=== PATIENT | female | born 1935 | race Caucasian/White ===

== ENCOUNTER 2020-08-30 14:09 | Inpatient (IN) ==
[2020-08-30 15:01] VITALS: BMI 18.8
[2020-08-30] MEDS ORDERED: NITROSTAT SL PRN (15:34)
[2020-08-30 15:53] LABS: BASOPHILS # (AUTO) 0.1 K/uL (0-0.2); EOSINOPHILS # (AUTO) 0.4 K/ul (0.0-0.7); EOSINOPHILS % (AUTO) 4.4 % (0.0-7.0); HEMATOCRIT 46.5 % (37.0-47.0); HEMOGLOBIN 15.3 g/dl (12.0-16.0); IMMATURE GRANULOCYTE % (AUTO) 0.3 % (0.0-5.0); LYMPHOCYTES # (AUTO) 1.7 K/uL (0.60-3.4); LYMPHOCYTES % (AUTO) 21.9 (10.0-50.0); MEAN CORPUSCULAR HEMOGLOBIN 29.2 pg (27.0-31.0); MEAN CORPUSCULAR HGB CONC 32.9 (31.8-35.4); MEAN CORPUSCULAR VOLUME 88.7 fl (81.0-99.0); MONOCYTES # (AUTO) 0.6 K/uL (0.4-2.0); MONOCYTES % (AUTO) 7.2 (0-10); NEUTROPHILS # (AUTO) 5.2 K/ul (2.0-6.9); NEUTROPHILS % (AUTO) 65.2 % (42.2-75.2); PLATELET COUNT 565 10^3/uL (140-440); RDW COEFFICIENT OF VARIATION 13.7 % (11.6-14.8); RED BLOOD COUNT 5.24 10^6/ul (4.20-5.40); WHITE BLOOD COUNT 7.93 K/ul (4.6-10.2)
[2020-08-30] MEDS: SODIUM CHLORIDE 1,000 ML IV SCH (16:00)
[2020-08-30 16:04] LABS: ALANINE AMINOTRANSFERASE 10.7 U/L (0-35); ALBUMIN 4.75 g/dL (3.5-5.0); ALKALINE PHOSPHATASE 112.9 U/L (53-141); ASPARTATE AMINO TRANSFERASE 27.8 U/L (14-36); BILIRUBIN,TOTAL 0.37 mg/dL (0.2-1.3); BLOOD UREA NITROGEN 21.2 mg/dL (7-17); CALCIUM 10.44 mg/dL (8.4-10.2); CARBON DIOXIDE 30.1 mmol/L (22-30.0); CHLORIDE 100.1 mmol/L (98-107); CREATININE 1.72 mg/dL (0.60-1.30); GLUCOSE 115.7 mg/dL (74-106); POTASSIUM 4.35 mmol/L (3.5-5.1); SODIUM 139.4 mmol/L (134.5-145); TOTAL PROTEIN 8.91 g/dL (6.3-8.2)
--- NOTE | 2020-08-30 17:38 | CT ---
EXAM: CT of the abdomen and pelvis without contrast. HISTORY: Weight loss. PROCEDURE: Contiguous axial CT images of the abdomen and pelvis without contrast with coronal and sa gittal reformats. FINDINGS: The exam is limited without IV contrast. The liver is normal in appearance. There are gal lstones in the gallbladder. The gallbladder is within normal limits in size. The pancreas, spleen a nd adrenal glands are normal in appearance. There is left renal cortical scarring. There is a right renal cyst. There are nonobstructive calcifications in the kidneys. The abdominal aorta is within normal limits in size. There are atherosclerotic calcifications in the major arteries of the abdomen and pelvis. There is a large hiatal hernia. The appendix is normal in appearance. There is divert iculosis of the colon with no evidence of diverticulitis. No free fluid or free air in the abdomen o r pelvis. The bladder is adequately filled and normal in appearance. The uterus is unremarkable. T here are degenerative changes in the spine. Impression: Colonic diverticulosis without diverticulitis. Cholelithiasis as described. Nonobstructive bilateral nephrolithiasis. Left renal cortical scarring. Atherosclerotic vascular disease. Large hiatal hernia.
--- NOTE | 2020-08-30 17:43 | CT ---
EXAM: CT chest without contrast TECHNIQUE: Helical axial CT of the chest was performed without contrast with coronal and sagittal rec onstructions. COMPARISON: CT of the abdomen pelvis from today and CT chest abdomen pelvis from 06/02/2015 HISTORY: Syncope FINDINGS: Lung parenchyma: There is no mass or nodule or large effusion or infiltrate.There is some mild upper lobe bronchiectasis. There is a very large hiatal hernia consistent with an intrathoracic stomach. There is some mild atelectasis surrounding this. Mediastinum: No pathologic hilar or mediastinal adenopathy. There are advanced coronary calcification s. There is no pericardial effusion. There is advanced calcific atherosclerosis of the aorta. There is no aortic aneurysm. Upper Abdomen: Please see today's CT abdomen pelvis report for details. Osseous structures: Nothing acute. Surrounding soft tissues including the thyroid gland are normal. No supraclavicular or axillary rosmery opathy. IMPRESSION: 1. No acute abnormality in the chest. There is no infiltrate or failure or effusion. 2. Intrathoracic stomach. 3. Advanced atherosclerosis.
[2020-08-30] MEDS: COREG PO SCH (17:51)
--- NOTE | 2020-08-30 17:53 | US ---
EXAM: Ultrasound Doppler carotid. HISTORY: Syncope. PROCEDURE: Bilateral carotid ultrasound with color and spectral Doppler. FINDINGS: The bilateral internal carotid arteries are tortuous. There is minimal plaque formation in the right common carotid artery and right carotid bulb. There i s moderate plaque formation in the proximal right internal carotid artery. The peak systolic velocit y in the right internal carotid artery measures 102 cm/sec. The right peak systolic velocity ratio m easures 1.1. There is minimal plaque formation in the distal left common carotid artery and left carotid bulb. Th ere is moderate plaque formation in the proximal left internal carotid artery. The peak systolic michael ocity in the left internal carotid artery measures 129 cm/sec. The left peak systolic velocity ratio measures 1.4. There is antegrade flow in the vertebral arteries. Impression: Moderate stenosis in the bilateral carotid arteries as described, classified as 50-69% b y NASCET criteria. Antegrade flow in the vertebral arteries.
[2020-08-30] MEDS ORDERED: FAMOTIDINE 20 MG PO SCH (21:00)
[2020-08-30] MEDS: LIBRIUM PO SCH (21:08)
[2020-08-30] MEDS: PEPCID PO SCH (21:08)
[2020-08-30 22:08] LABS: BILIRUBIN,URINE Negative (NEGATIVE); CLARITY,URINE Clear (CLEAR); COLOR,URINE Yellow (YELLOW); GLUCOSE, URINE (UA) Negative (NEGATIVE); KETONES,URINE Negative (NEGATIVE); LEUKOCYTE ESTERASE ,URINE Trace (NEGATIVE); NITRITE,URINE Negative (NEGATIVE); PROTEIN,URINE Negative (NEGATIVE); URINE, BLOOD Negative (NEGATIVE); UROBILINOGEN,URINE 0.2 (0.2)
[2020-08-30 22:13] LABS: URINE WBC, MICROSCOPIC 0-2 (0-2)
[2020-08-30 22:14] LABS: BACTERIA,URINE TRACE (NOT PRESENT); SQUAMOUS EPITHELIAL CELL,UR 0-2 (0-5)
[2020-08-31] MEDS: SODIUM CHLORIDE 1,000 ML IV SCH ×2 (04:53→18:13)
[2020-08-31 05:45] LABS: BASOPHILS # (AUTO) 0.1 K/uL (0-0.2); BASOPHILS % (AUTO) 0.8 % (0.0-3.0); EOSINOPHILS # (AUTO) 0.3 K/ul (0.0-0.7); EOSINOPHILS % (AUTO) 4.3 % (0.0-7.0); HEMATOCRIT 41.9 % (37.0-47.0); HEMOGLOBIN 13.8 g/dl (12.0-16.0); IMMATURE GRANULOCYTE % (AUTO) 0.3 % (0.0-5.0); LYMPHOCYTES # (AUTO) 2.2 K/uL (0.60-3.4); LYMPHOCYTES % (AUTO) 30.1 (10.0-50.0); MEAN CORPUSCULAR HGB CONC 32.9 (31.8-35.4); MONOCYTES # (AUTO) 0.6 K/uL (0.4-2.0); MONOCYTES % (AUTO) 8.7 (0-10); NEUTROPHILS # (AUTO) 4.1 K/ul (2.0-6.9); NEUTROPHILS % (AUTO) 55.8 % (42.2-75.2); PLATELET COUNT 502 10^3/uL (140-440); RDW COEFFICIENT OF VARIATION 13.6 % (11.6-14.8); RED BLOOD COUNT 4.76 10^6/ul (4.20-5.40); WHITE BLOOD COUNT 7.37 K/ul (4.6-10.2)
[2020-08-31 05:56] LABS: ALANINE AMINOTRANSFERASE 8.7 U/L (0-35); ALBUMIN 3.82 g/dL (3.5-5.0); ALKALINE PHOSPHATASE 82.3 U/L (53-141); BILIRUBIN,TOTAL 0.5 mg/dL (0.2-1.3); BLOOD UREA NITROGEN 19.4 mg/dL (7-17); CALCIUM 9.43 mg/dL (8.4-10.2); CARBON DIOXIDE 28.5 mmol/L (22-30.0); CHLORIDE 104.3 mmol/L (98-107); CREATININE 1.55 mg/dL (0.60-1.30); GLUCOSE 97.2 mg/dL (74-106); POTASSIUM 3.72 mmol/L (3.5-5.1); SODIUM 139.4 mmol/L (134.5-145); TOTAL PROTEIN 7.03 g/dL (6.3-8.2)
[2020-08-31] MEDS ORDERED: PROTONIX PO SCH (06:30)
[2020-08-31] MEDS ORDERED: NITROSTAT SL PRN (07:45)
[2020-08-31] MEDS ORDERED: ATROPINE SULFATE PFS IVP PRN (07:45)
[2020-08-31] MEDS ORDERED: TYLENOL PO PRN (07:45)
[2020-08-31] MEDS ORDERED: VISTARIL INJ IM PRN (07:45)
[2020-08-31] MEDS ORDERED: LIBRIUM PO SCH (09:00)
[2020-08-31] MEDS ORDERED: NORVASC PO SCH (09:00)
[2020-08-31] MEDS: LIBRIUM PO SCH ×2 (09:24→21:48)
[2020-08-31] MEDS: NORVASC PO SCH ×2 (09:25→21:48)
[2020-08-31] MEDS: ASPIRIN EC PO SCH (09:26)
[2020-08-31] MEDS: COREG PO SCH ×2 (09:26→16:20)
[2020-08-31] MEDS: ROCEPHIN 1 GM/50 ML D5W 1 GM/50 ML BAG IV SCH (10:41)
--- NOTE | 2020-08-31 11:23 | PCM.PROG ---
Attending Provider: ATTENDING PROVIDER: Dr. FABIO OSUNA DATE OF SERVICE: 08/31/20 SUBJECTIVE: This 84 year old /WHITE F was hospitalized 08/30/20 with weight loss and generalized weakness and syncope. Telemetry didn't show any marked arrhythmia. CT of the abdomen and chest showed large hiatal hernia with diverticulosis, cholelithiasis and intrathoracic stomach. Kidney function has improved with IV fluids. REVIEW OF SYSTEMS: CONSTITUTIONAL: No night sweats. No fatigue, malaise, lethargy. No fever or chills. HEENT: Eyes: No visual changes. No eye pain. No eye discharge. ENT: No runny nose. No epistaxis. No sinus pain. No odynophagia. No congestion. RESPIRATORY: No cough, no congestion. No hemoptysis. No shortness of breath. CARDIOVASCULAR: No angina symptoms. No CHF symptoms. No atypical chest pain for CAD. No palpitations. No orthopnea.. GASTROINTESTINAL: No abdominal pain. No nausea or vomiting. No diarrhea or constipation. No hematemesis. No hematochezia. GENITOURINARY: No urgency. No frequency. No dysuria. No hematuria. No obstructive symptoms. No discharge. No pain. No significant abnormal bleeding. MUSCULOSKELETAL: No musculoskeletal pain; no joint swelling. NEUROLOGICAL: Awake, alert, oriented to time, place and person. No headache. No neck pain. No syncope. No seizures. No dizziness. PSYCHIATRIC: Not anxious. No depression. No suicidal thoughts. No homicidal thoughts. SKIN: No rash. No lesions. No wounds. ENDOCRINE: No unexplained weight loss. No weight gain. HEMATOLOGIC/LYMPHATIC: No anemia. No purpura. No petechiae. No prolonged or excessive bleeding. No palpable lymph nodes. PHYSICAL EXAMINATION: GENERAL: The patient is awake, alert and oriented, lying in bed in no distress. VITAL SIGNS: Temperature 96.7 F, Pulse 79, Respiratory Rate 18, BP 138/58, Pulse Ox 95% HEENT: Head normocephalic, atraumatic. Eyes: Extraocular muscles are intact. Pupils are equal, round and reactive to light and accommodation. Ears: No lesions. Nose appeared normal. Throat: No exudate or erythema. NECK: Supple. No JVD, no carotid bruit. No lymphadenopathy or thyromegaly. LUNGS: Clear to auscultation. Percussion note normal. Chest symmetrical. HEART: S1, S2, no S3. No murmurs. No cyanosis or clubbing. No ascites. Pulses: Dorsalis pedis and posterior tibial pulses +1 to +2 both sides. ABDOMEN: Soft. Non-tender. Bowel sounds active. No CVA tenderness. No mass felt. EXTREMITIES: No edema. Full range of motion of all extremities, equal. NEUROLOGIC: No focal deficit. Cranial nerves II through XII are grossly intact. No headache, no double vision or headache. SKIN: Warm and dry. Intact. Turgor-normal. LYMPHATIC: No palpable lymph nodes/no lymphedema. MUSCULOSKELETAL: Normal joints with no swelling. Muscle tone is normal. LAB REVIEW: 08/31/20 05:38 08/31/20 05:38 08/31/20 05:38: WBC 7.37, RBC 4.76, Hgb 13.8, Hct 41.9, MCV 88.0, MCH 29.0, MCHC 32.9, RDW Coeff of Sera 13.6, Plt Count 502 H, Immature Gran % (Auto) 0.3, Neut % (Auto) 55.8, Lymph % (Auto) 30.1, Heard % (Auto) 8.7, Eos % (Auto) 4.3, Baso % (Auto) 0.8, Neut # (Auto) 4.1, Lymph # (Auto) 2.2, Heard # (Auto) 0.6, Eos # (Auto) 0.3, Baso # (Auto) 0.1, Immature Gran # (Auto) 0.0 08/31/20 05:38: Sodium 139.4, Potassium 3.72, Chloride 104.3, Carbon Dioxide 28.5, Anion Gap 10.32, BUN 19.4 H, Creatinine 1.55 H, Estimated GFR (MDRD) 32.00, BUN/Creatinine Ratio 12.51, Glucose 97.2, Calcium 9.43, Total Bilirubin 0 .50, AST 28.0, ALT 8.7, Alkaline Phosphatase 82.3 D, Total Protein 7.03, A lbumin 3.82, Globulin 3.21, Albumin/Globulin Ratio 1.19 08/30/20 21:50: Urine Color Yellow, Urine Clarity Clear, Urine pH 6.0, Ur Specific [place] 1.020, Urine Protein Negative, Urine Glucose (UA) Negative, Urine Ketones Negative, Urine Blood Negative, Urine Nitrite Negative, Urine Bilirubin Negative, Urine Urobilinogen 0.2, Ur Leukocyte Esterase Trace H, Urine Microscopic WBC 0-2, Ur Squamous Epith Cells 0-2, Urine Bacteria Trace 08/30/20 15:45: Sodium 139.4, Potassium 4.35, Chloride 100.1, Carbon Dioxide 30.1 H, Anion Gap 13.55, BUN 21.2 H, Creatinine 1.72 H, Estimated GFR (MDRD) 28.00, BUN/Creatinine Ratio 12.32, Glucose 115.7 H, Calcium 10.44 H, Total Bilirubin 0.37, AST 27.8, ALT 10.7, Alkaline Phosphatase 112.9, Total Protein 8.91 H, Albumin 4.75, Globulin 4.16, Albumin/Globulin Ratio 1.14 08/30/20 15:45: WBC 7.93, RBC 5.24, Hgb 15.3, Hct 46.5, MCV 88.7, MCH 29.2, MCHC 32.9, RDW Coeff of Sera 13.7, Plt Count 565 H, Immature Gran % (Auto) 0.3, Neut % (Auto) 65.2, Lymph % (Auto) 21.9, Heard % (Auto) 7.2, Eos % (Auto) 4.4, Baso % (Auto) 1.0, Neut # (Auto) 5.2, Lymph # (Auto) 1.7, Heard # (Auto) 0.6, Eos # (A uto) 0.4, Baso # (Auto) 0.1, Immature Gran # (Auto) 0.0 ASSESSMENT: Please see below. 1. Weight loss likely combination of huge hiatal hernia and Cholelithiasis and aging process with mild depression. PLAN: 1. Systolic blood pressure elevated, Amlodipine 5mg BID 2. Increase Pantoprazole BID 3. Continue Famotidine 4. The patient is not a surgical candidate for any of her problems. Diet discussed with the patient. Plan and coordination of the patient's care discussed in the presence of Kids Club Attendant and nurse. CONDITION: STABLE SCRIBED BY: GENESIS SCOTT, Manager Resource scribed while in presence of service performed by Dr. FABIO OSUNA on 08/31/20 ([id number])
--- NOTE | 2020-08-31 13:16 | RS.PTINEVL ---
Subjective - Patient information Date of Evaluation: 08/31/20 Date of Arrival on Unit: 08/30/20 Admitted From:: Home Diagnosis: weight loss, weakness, falls, syncopal episode. Usual Living Arrangement: Alone Living Arrangement Comments: has homemaker that helps a few times a week, grandson helps with things as needed. (grandson scheduled to go to [place] for [employer] school for 6months) Home Environment: Mobile Home, Stairs (few), Rail Medical History: Hypertension, Diabetes Medical History Comments:: CKD, GERD, GI bleed, large hiatal hernia, Medications: see chart Subjective Information/ Patient Comments:: pt states that she is hoping to go home tomorrow. She states that she has lifeline at home, homemaker that comes a few times a week. - Level of function Prior to this admission, the patient could do the following:: Independent ADL's, Independent Ambulation Abilities prior to this admission: pt states she would wait to take a shower when someone was there, she didn't take one when she was alone because she was afraid of falling. Current Level of Function: Partially Dependent Current Equipment Used at Home: single point cane Interventions - Objective Patient Orientation: Person, Place, Time, Situation Current Interventions: IV's, Telemetry Range of Motion - ROM Right Upper Extremity AROM: WFL's Left Upper Extremity AROM: WFL's Right Lower Extremity AROM: WFL's Left Lower Extremity AROM: WFL's Muscle Strength - Muscle Strength Right Upper Extremity Strength: Mild Weakness (shld flex 4-/5, elbow flex/ext 4/5) Left Upper Extremity Strength: Mild Weakness (shld flex 4-/5, elbow flex/ext 4/5) Right Lower Extremity Strength: Mild Weakness (hip flex 4-/5, knee flex/ext 4/5, ankle DF/PF 4/5) Left Lower Extremity Strength: Mild Weakness (hip flex 4-/5, knee flex/ext 4/5, ankle DF/PF 4/5) Sensation - Sensation Right Upper Extremity Sensation: Intact/Normal Left Upper Extremity Sensation: Intact/Normal Right Lower Extremity Sensation: Intact/Normal Left Lower Extremity Sensation: Intact/Normal Palpation Palpation Findings: None/Normal Balance - Sitting Balance and Reactions Static Sitting Balance: Good Dynamic Sitting Balance: Fair - Standing Balance and Reactions Static Standing Balance: Fair Dynamic Standing Balance: Poor Standing Equilibrium Reactions: Delayed Left, Delayed Right Standing Protective Reactions: Delayed Left, Delayed Right Functional Mobility - Bed Mobility Rolling R/L: Independent Scooting: Independent Sit to Supine: Supervision - Transfers Sit to Stand: Supervision Stand to Sit: Supervision - Safety Awareness Safety Awareness: Fair KARLA INDEX SCORE: n/a Ambulation - Ambulation Assistive Device Used: Gait belt Orthotic/Prosthetic Device: No Distance: 140ft x2 Assistance needed with Ambulation: CGA Gait Deviations: Forward posture, Short stride, Deviates from path Factors Affecting Ambulation: Decreased Balance, Weakness, Decreased Safety Treatment time - Time with patient Length of Evaluation: 21 Total treatment time: 32 Patient Education - Education Patient Education: Home Exercise Program, Education of Plan of Care Teaching Recipient: Patient Teaching Methods: Discussion, Demonstration Comments: discussion regarding DC planning and recommend home health PT. Drea states he is going to talk with Dr. Kaur today for dc planning. Assessment - Assessment Problem List:: Decreased level of function, Requires training/education, Decreased safety/Risk of falls, Weakness Rehab Potential: Good Further Therapy Indicated?: Yes Candidate for Swing Bed for Therapy Services?: Feel pt would not be a candidate for swing bed due to high functional level. Evaluation Complexity: HISTORY: Medium, EXAM OF BODY SYSTEMS: Medium, CLINICAL PRESENTATION: Medium, CLINICAL DECISION MAKING: Medium Patient's Goal(s): Get stronger, go home Short Term Goals GOAL #1: pt transfer sup to/from sit independently Goal to be met by: 09/02/20 GOAL #2: Sit to/from stand SBA Goal to be met by: 09/02/20 GOAL #3: pt amb 200ft with/without AAD CGA to SBA with no LOB Goal to be met by: 09/02/20 GOAL #4: Improve BLE strength 4/5 Goal to be met by: 09/02/20 Saddle Stitching Machine Operator Goals GOAL #1: pt amb functional household distances independently Goal to be met by: 09/04/20 GOAL #2: Ascend/descend 3 steps with HR SBA Goal to be met by: 09/04/20 GOAL #3: Sit to/from stand independently Goal to be met by: 09/04/20 Plan Plan of Care: Therapeutic EX, Therapeutic Activity Other:: gait training Frequency of Treatment: 1-2 X day, as tolerated Duration of Treatment: 4 days Anticipated Discharge Destination: Home Treatment Diagnosis (ICD 10 Codes): impaired balance R 26.81. gait difficulty R 26.2. weakness M62.81 Has the Physician been added for Co-signature?: Yes
[2020-08-31] MEDS: PROTONIX PO SCH (16:20)
[2020-08-31] MEDS: PEPCID PO SCH (21:48)
[2020-09-01 05:18] LABS: BASOPHILS # (AUTO) 0.1 K/uL (0-0.2); BASOPHILS % (AUTO) 0.8 % (0.0-3.0); EOSINOPHILS # (AUTO) 0.3 K/ul (0.0-0.7); HEMATOCRIT 38.2 % (37.0-47.0); HEMOGLOBIN 12.7 g/dl (12.0-16.0); IMMATURE GRANULOCYTE % (AUTO) 0.2 % (0.0-5.0); LYMPHOCYTES # (AUTO) 2.1 K/uL (0.60-3.4); MEAN CORPUSCULAR HEMOGLOBIN 29.3 pg (27.0-31.0); MEAN CORPUSCULAR HGB CONC 33.2 (31.8-35.4); MONOCYTES # (AUTO) 0.8 K/uL (0.4-2.0); MONOCYTES % (AUTO) 9.7 (0-10); NEUTROPHILS # (AUTO) 5.1 K/ul (2.0-6.9); NEUTROPHILS % (AUTO) 60.3 % (42.2-75.2); PLATELET COUNT 464 10^3/uL (140-440); RDW COEFFICIENT OF VARIATION 13.8 % (11.6-14.8); RED BLOOD COUNT 4.34 10^6/ul (4.20-5.40); WHITE BLOOD COUNT 8.52 K/ul (4.6-10.2)
[2020-09-01 05:32] LABS: ALANINE AMINOTRANSFERASE 7.5 U/L (0-35); ALBUMIN 3.33 g/dL (3.5-5.0); ALKALINE PHOSPHATASE 72.2 U/L (53-141); ASPARTATE AMINO TRANSFERASE 17.8 U/L (14-36); BILIRUBIN,TOTAL 0.4 mg/dL (0.2-1.3); BLOOD UREA NITROGEN 17.8 mg/dL (7-17); CALCIUM 8.79 mg/dL (8.4-10.2); CARBON DIOXIDE 25.5 mmol/L (22-30.0); CHLORIDE 106.9 mmol/L (98-107); CREATININE 1.33 mg/dL (0.60-1.30); GLUCOSE 97.9 mg/dL (74-106); POTASSIUM 3.53 mmol/L (3.5-5.1); TOTAL PROTEIN 6.35 g/dL (6.3-8.2)
[2020-09-01 05:57] VITALS: BP 130/79; TEMP 97.7
[2020-09-01] MEDS: PROTONIX PO SCH (06:07)
[2020-09-01] MEDS: COREG PO SCH (08:27)
[2020-09-01] MEDS: NORVASC PO SCH (08:27)
[2020-09-01] MEDS: LIBRIUM PO SCH (08:28)
[2020-09-01] MEDS: ASPIRIN EC PO SCH (08:28)
[2020-09-01] MEDS: ROCEPHIN 1 GM/50 ML D5W 1 GM/50 ML BAG IV SCH (08:28)
[2020-09-01] MEDS: SODIUM CHLORIDE 1,000 ML IV SCH (08:29)
--- NOTE | 2020-09-03 10:16 | HP ---
DATE OF SERVICE: 08/30/2020 REASON FOR HOSPITALIZATION/HISTORY OF PRESENT ILLNESS: 84 year old female hospitalized with still not much appetite. Diarrhea off and one and coughing till vomited and then passed out. Still lost weight. 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 REVIEW OF SYSTEMS: CONSTITUTIONAL: No fever, Fatigue. HEENT: No sinus drainage, no sore throat. RESPIRATORY: Cough, no congestion. CARDIOVASCULAR: No atypical chest pain for coronary artery disease. No angina, CHF symptoms, palpitations or shortness of breath. GASTROINTESTINAL: No melena. Abdominal pain. GERD symptoms. Diarrhea. GENITOURINARY: No hematuria, no prostatism, no polyuria. PUGGER HELPER: No blackout, no dizziness, no headache, no double vision. MUSCULOSKELETAL: No osteoarthritis pain, no joint swelling. ENDOCRINE: Weight loss, lost 10 pounds in past few months, no weight gain. SKIN: Not dry, no rash. PSYCHIATRIC: Not anxious, no depression, no suicidal thoughts, no homicidal thoughts. SOCIAL HISTORY: Marital Status: . Alcohol Usage: No. Tobacco Usage: No. FAMILY HISTORY: Father -CAD Mother -Dementia and stomach cancer Brother 2; one cancer and other alive healthy Sister 4 sisters 3 have cancer and one cancer MEDICATIONS: Amlodipine 5mg daily Coreg 25mg BID Chlordiazepoxide 10mg BID Fish oil BID Iron 325mg PRN Nitroglycerin 0.4mg Sublingual Remeron 7.5mg HS Tramadol 5mg BID PRN Protonix 40mg Pepcid 20mg ALLERGIES: Advil Remeron PHYSICAL EXAMINATION: V/S: Pulse 68, blood pressure 122/80, temperature 97.7, oxygen saturation 97%, BMI 18, height 5'0 and weight 95.0. GENERAL APPEARANCE: Oriented times three. HEENT: Pale.Dry mucous membrane. NECK: No JVP, no bruits. RESPIRATORY: Decreased breath sounds. CARDIOVASCULAR: S1, S2, no S3, no murmur. No cyanosis, clubbing. No ascites. GI/ABDOMEN: No tenderness. Bowel sounds are active. EXTREMITIES: edema, pulses +1, equal. PUGGER HELPER: Deep tendon reflexes, sensory, motor and gait all normal. RECTAL: Patient refused/PELVIC: Patient refused. ASSESSMENT: 1. Weight loss 2. Generalized weakness 3. Syncopal episode 4. GERD 5. History of hiatal hernia 6. History of GI bleed 7. Weight loss 8. Generalized osteoarthritis 9. Diabetes Mellitus type 2 10.Hypertension 11.Chronic kidney disease stage 3-4, ejection fraction 45% 12.MVP 13. History of falls. PLAN: 1. Admit 2. Routine telemetry orders, No cardiac ezymes 3. CBC and CMP now and daily 4. Fall precautions 5. CT of chest/abdomen and pelvis with and without 6. Continue home medications 7. Normal saline at 75cc an hour IV 8. U/A 9. Skip chest x-ray 10.Bilateral Carotid scan 11.Weight daily 12.Regular diet TIME SPENT: More than 70 minutes. MTDD
--- NOTE | 2020-09-03 10:53 | PN ---
08/30/2020: Level 5 08/31/2020: Intermediate 09/01/2020: D as in discharge MTDD
--- NOTE | 2020-09-03 10:53 | DS ---
DATE OF SERVICE: 09/01/2020 FINAL DIAGNOSIS: 1. Weight loss likely combination of aging process, living by herself along with huge hiatal hernia and cholelithiasis , 10 pounds in few months. 2. Syncope likely from weight loss and hypotension 3. Hypotension 4. Large hiatal hernia with stomach in the thoracic area 5. Cholelithiasis 6. Anxiety disorder 7. Reflux disease 8. History of bleed likely from hiatal hernia 9. Diabetes mellitus type 2 borderline. DISCHARGE INSTRUCTIONS: Discharge home. The patient is strongly advised to take 5-6 more small meals and eat three hours prior to going to bed. The patient declined any further evaluation for any of her problems like cholelithiasis or large hiatal hernia. In fact she is not a surgical candidate for large hiatal hernia. She has cholelithiasis. It is not to the point may need immediate surgical referral. Instruction to come back in 5-7 days. MEDICATIONS AT DISCHARGE: Continue Chlordiazepoxide Librium 10mg BID Amlodipine 5mg daily Carvedilol 25mg BID Famotidine 20mg PO at HS Pantoprazole 40mg QAM DIET INSTRUCTIONS: Should be small frequent meals. ACTIVITY: Gradually resume activity as tolerated SMOKING: N/A HOSPITAL COURSE: 84 year old white female hospitalized because of weight loss and generalized weakness with near syncopal type of sort. She has lost weight. Also her appetite has been poor. She lives by herself with grandson who cooks. His does his best to take care of them and he is going to leaving within a couple of days. Declined any group home type of placement. She says that she has been able to carry out all activity of daily living. The patient is strongly advised to eat regular meals, 5 small meals. Diet and not to eat three hours before going to bed. The patient is whole stomach herniated in the thoracic cavity. She has been on Protonix and Famotidine. She needs to continue both of them. She hasn't been taking them on regular basis. Cholelithiasis could also be partly responsible for the weight loss with lack of appetite and bloating. She declined any surgical referral. She is not a good candidate. Echocardiogram showed normal LV contractility and mitral valve prolapse, mild pericardial effusion. Cardiovascular status is stable. She declined to considering any group home type of placement. During the stay telemetry did not reveal any significant arrhythmias. The patient is going to need Home Health for PT/OT due to falls. The patient is agreeable. TIME SPENT: More than 60 minutes. DAMIAND
--- NOTE | 2020-09-03 23:01 | ECHO2D ---
Date of Exam: 09/01/2020 Ordering Physician: DR. OSUNA Room #: 111 Reason for Echo: CORONARY ARTERY DISEASE, SHORTNESS OF BREATH, WEAKNESS, SYNCOPE M-Mode Normal Adult Results LV Dimensions Normal Adult Results AoV Opening excursions >1.6 >1.6 LVEDD-base- 3.5-5.8 5.2 Ao root dimensions 2.0-3.7 3.2 LVESD-base- 3.1-4.6 L. Atrium dimensions 1.9-3.8 4.0 Post. Wall thickness 0.8-1.1 0.9 IV septum (thickness) 0.7-1.2 1.1 Post. Wall excursion 0.72-1.3 NORMAL Septal motion NORMAL Systolic motion R. Ventricular cavity 1.5-2.0 NORMAL LVEF 60% 62% Paradoxical septal wall motion NORMAL 2-D : MITRAL VALVE PROLAPSE NOTED. LEFT PARASTERNAL LONG AXIS AND APICAL FOUR CHAMBER VIEW, NORMAL LEFT VENTRICLE SIZE AND CONTRACTILITY, MODERATE TO MILD PERICARDIAL EFFUSION, NO THROMBUS COLOR FLOW: MILD MITRAL REGURGITATION M-MODE: MV: MITRAL VALVE PROLAPSE LATE SYSTOLIC AV: NORMAL TV: NORMAL PV: NORMAL CHAMBER SIZE: BORDERLINE LEFT ATRIAL CAVITY ENLARGEMENT WALL MOTION: NORMAL PERICARDIUM: NORMAL INTERPRETATION: 1. 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 NORMAL LEFT VENTRICLE SIZE AND CONTRACTILITY 4. [] MTDD
--- NOTE | 2020-09-04 14:31 | PN ---
DATE OF SERVICE: 08/30/20 SUBJECTIVE: The patient was seen and examined today before her hospitalization. The patient will be hospitalized with further workup to be done as ordered. Her grandson was present. The patient's overall condition was stable. TIME SPENT: More than 30 minutes. Plan and coordination of the patient's care discussed in the presence of nurse. KIKO
== END 2020-09-01 13:17 | disposition home or self-care (01) | DRG 641 ==
LOC: MEDSURG A 14:09
PROVIDERS: ADMIT Internal Medicine; ATTEND Internal Medicine

== ENCOUNTER 2021-10-21 05:23 | Inpatient (IN) ==
--- NOTE | 2021-10-21 05:32 | ED.PDOC ---
General <MANUEL SAMS MD - Last Filed: 10/22/21 19:27> ED Provider: Dr. MANUEL SAMS Chief Complaint: Shortness of Air Stated Complaint: patient is an 86 year old female who has had her COVID vaccine including booster with cough and shortness of breath that started yesterday but did see Dr Kaur and received Z pack twice. Cough is productive. Time Seen by Provider: 10/21/21 05:28 Mode of Arrival: Ambulance Information Source: Patient and EMT Primary Care Provider: FABIO KAUR Nursing and Triage Documentation Reviewed and Agree: No Does patient meet sepsis criteria?: No If yes, has appropriate treatment been initiated?: No System Inflammatory Response Syndrome: Pulse >90 BPM Sepsis Protocol: For patient's 13 years and over: Temp is 96.8 and below OR 101 and greater Pulse >90 BPM Resp >20/minute Acutely Altered Mental Status Are patient's symptoms suggestive of a new infection, such as: -Pneumonia -Skin, Soft Tissue -Endocarditis -UTI -Bone, Joint Infection -Implantable Device -Acute Abdominal Infection -Wound Infection -Meningitis -Blood Stream Catheter Infection -Unknown Respiratory Complaint Exam <MANUEL SAMS MD - Last Filed: 10/22/21 19:27> Shortness of Air Complaint/Exam Onset/Duration: 2 days Symptoms Are: Still present Timing: Constant Initial Severity: Moderate Current Severity: Severe Character: Reports Dyspnea at rest Associated Signs and Symptoms: Reports Cough and Wheezing; Denies Chest pain Home Oxygen Use: No Recent Stress Test: No Recent Echo/LV Function: No Respiratory Distress: Moderate Stridor Present: No Tracheal Deviation: No Subcutaneous Emphysema: No Accessory Muscle Use: No Retractions: Diaphragmatic Diminished Breath Sounds: No Prolonged Expiratory Phase: No Unable to Speak Full Sentences: No Fatigue: No Leg Swelling: No Irma's Sign Present: No Grunting Respirations: No Kussmaul Respirations: No Differential Diagnoses: CHF, Pneumonia, SARS, Bronchitis and URI Quality Indicators for AMI: EKG in 10min. Quality Indicator For Non-Traumatic Chest Pain/Syncope: EKG Performed Quality Indicators For Pneumonia/CAP: Blood Cultures-SCU admit, Empiric Antibiotic Rx and Vital signs Review of Systems <MANUEL SAMS MD - Last Filed: 10/22/21 19:27> Review Of Systems Constitutional: Reports No symptoms Respiratory: Reports Cough and Short of air Neurological: Reports Anxiety All Other Systems: Reviewed and Negative PFSH <MANUEL SAMS MD - Last Filed: 10/22/21 19:27> Medical History (Updated 10/22/21 @ 08:39 by GENESIS SCOTT) GERD (gastroesophageal reflux disease) Hernia Hypertension Syncope Weakness Weight loss Social History Smoking and tobacco status: Former smoker Female Reproductive History Menstrual Hx Hysterectomy: No Hx Tubal Ligation: No Physical Exam <MANUEL SAMS MD - Last Filed: 10/22/21 19:27> Physical Exam Appearance: Reports Ill-appearing and Thin Ill-appearing: Mild Pain Distress: None Eyes: Reports HERNÁN and EOMI ENT: Reports Ears normal and Nose normal Neck: Not Examined Respiratory: Reports Crackles (moslty on the bases ) Cardiovascular: Reports Tachycardia (irregular ) GI/: Reports Not Examined Musculoskeletal: Reports Normal strength, ROM intact and No edema Skin: Reports Warm and Dry Neurological: Reports Motor intact, Alert and Oriented Psychiatric: Reports Anxious Interpretation <MANUEL SAMS MD - Last Filed: 10/22/21 19:27> Radiology Interpretation Radiology Interpretation By: Radiologist Radiology Results: Positive Exam Interpreted: Portable CXR (pulmonary Edema, Correlate for Pneumonia ) EKG Interpretation Time of EKG #1: 05:47 Rate: Tachy Rhythm: Other (Atrial Fibrillation) Ectopy: None [place]: NL Interpretation: Atril Fibrillation with RVR <TRICIA MOCTEZUMA MD - Last Filed: 10/21/21 10:46> Radiology Interpretation Xray Comments: chf and pneumonia. <TRICIA MOCTEZUMA MD - Last Filed: 10/21/21 10:46> Re-Evaluation Time of Re-Evaluation: 07:35 Status: Improved Vital Signs Stable: No Pain Level: 0 Appearance: Other (mildly diaphoretic, was working to breathe.) Lungs: Other (mild wheezes, rhonchi and posterior crackles.) Skin: Warm and Dry Neuro: Alert and Oriented X3 CV: Other (tachycardia.) Physician Notification <MANUEL SAMS MD - Last Filed: 10/22/21 19:27> Case Discussed Endorsed To/Discussed With: Dr Moctezuma Time of Discussion: 07:20 (Bed side hand over given ) Critical Care Note <MANULE SAMS MD - Last Filed: 10/22/21 19:27> Critical Care Note Total Critical Care Time (mins): 30 <TRICIA MOCTEZUMA MD - Last Filed: 10/21/21 10:46> Critical Care Note Total Critical Care Time (mins): 45 Course <MANUEL SAMS MD - Last Filed: 10/22/21 19:27> Course Hematology/Chemistry: 10/22/21 11:34 10/22/21 11:34 Orders, Labs, Meds: Lab Review 10/21/21 10/21/21 10/21/21 05:40 05:45 05:45 WBC 21.86 H RBC 5.66 H Hgb 15.2 Hct 48.6 H MCV 85.9 MCH 26.9 L MCHC 31.3 L RDW Coeff of Sera 14.9 H Plt Count 425 Immature Gran % (Auto) 1.2 Neut % (Auto) 84.2 H Lymph % (Auto) 7.7 L Merrick % (Auto) 5.6 Eos % (Auto) 1.0 Baso % (Auto) 0.3 Neut # (Auto) 18.4 H Lymph # (Auto) 1.7 Merrick # (Auto) 1.2 Eos # (Auto) 0.2 Baso # (Auto) 0.1 Immature Gran # (Auto) 0.3 Puncture Site Lb Base Excess 4.7 H O2 Saturation 87.7 L ABG pH 7.42 ABG pCO2 45.0 ABG pO2 53.0 L* ABG HCO3 29.2 H ABG Total CO2 30.6 H Jose Test + Hemoglobin 1.3 Oxyhemoglobin 89.4 L Carboxyhemoglobin 1.9 H Total Hemoglobin 14.3 FiO2 % 21.0 Sodium 138.2 Potassium 4.26 Chloride 101.5 Carbon Dioxide 29.8 Anion Gap 11.16 BUN 22.5 H Creatinine 1.37 H Estimated GFR (MDRD) 36.00 BUN/Creatinine Ratio 16.42 Glucose 189.6 H Lactic Acid Calcium 9.93 Total Bilirubin 0.54 AST 19.4 ALT 11.8 Alkaline Phosphatase 151.9 H Total Creatine Kinase 28.6 L Troponin I < 0.012 NT-Pro-B Natriuret Pep Total Protein 8.01 Albumin 4.33 Globulin 3.68 Albumin/Globulin Ratio 1.17 Procalcitonin Influ A Molecular Assay Influ B Molecular Assay SARS CoV-2 RNA Rapid ANTONIO SARS-CoV-2 Ag (Rapid) 10/21/21 10/21/21 10/21/21 05:45 05:45 05:45 WBC RBC Hgb Hct MCV MCH MCHC RDW Coeff of Sera Plt Count Immature Gran % (Auto) Neut % (Auto) Lymph % (Auto) Merrick % (Auto) Eos % (Auto) Baso % (Auto) Neut # (Auto) Lymph # (Auto) Merrick # (Auto) Eos # (Auto) Baso # (Auto) Immature Gran # (Auto) Puncture Site Base Excess O2 Saturation ABG pH ABG pCO2 ABG pO2 ABG HCO3 ABG Total CO2 Jose Test Hemoglobin Oxyhemoglobin Carboxyhemoglobin Total Hemoglobin FiO2 % Sodium Potassium Chloride Carbon Dioxide Anion Gap BUN Creatinine Estimated GFR (MDRD) BUN/Creatinine Ratio Glucose Lactic Acid 0.94 Calcium Total Bilirubin AST ALT Alkaline Phosphatase Total Creatine Kinase Troponin I NT-Pro-B Natriuret Pep 6290.000 H Total Protein Albumin Globulin Albumin/Globulin Ratio Procalcitonin < 0.05 Influ A Molecular Assay Influ B Molecular Assay SARS CoV-2 RNA Rapid ANTONIO SARS-CoV-2 Ag (Rapid) 10/21/21 10/21/21 10/21/21 06:00 06:30 07:34 WBC RBC Hgb Hct MCV MCH MCHC RDW Coeff of Sera Plt Count Immature Gran % (Auto) Neut % (Auto) Lymph % (Auto) Merrick % (Auto) Eos % (Auto) Baso % (Auto) Neut # (Auto) Lymph # (Auto) Merrick # (Auto) Eos # (Auto) Baso # (Auto) Immature Gran # (Auto) Puncture Site Base Excess O2 Saturation ABG pH ABG pCO2 ABG pO2 ABG HCO3 ABG Total CO2 Jose Test Hemoglobin Oxyhemoglobin Carboxyhemoglobin Total Hemoglobin FiO2 % Sodium Potassium Chloride Carbon Dioxide Anion Gap BUN Creatinine Estimated GFR (MDRD) BUN/Creatinine Ratio Glucose Lactic Acid Calcium Total Bilirubin AST ALT Alkaline Phosphatase Total Creatine Kinase Troponin I NT-Pro-B Natriuret Pep Total Protein Albumin Globulin Albumin/Globulin Ratio Procalcitonin Influ A Molecular Assay Negative by naat Influ B Molecular Assay Negative by naat SARS CoV-2 RNA Rapid ANTONIO Negative SARS-CoV-2 Ag (Rapid) Negative Orders Category Date Time Status ABG DRAW REQUEST Stat CARDIO 10/21/21 05:29 Completed EKG-(ED ONLY) Stat CARDIO 10/21/21 05:28 Completed METERED DOSE INHALATION Routine CARDIO 10/21/21 05:37 Completed METERED DOSE INHALATION Routine CARDIO 10/21/21 08:24 Completed ABG COOX Stat LAB 10/21/21 05:40 Completed BLOOD CULTURE (ED ONLY) Stat LAB 10/21/21 05:45 Results CBC W/ AUTO DIFF Stat LAB 10/21/21 05:45 Completed COMPREHENSIVE METABOLIC PANEL Stat LAB 10/21/21 05:45 Completed COVID-19 ANTIGEN TEST Stat LAB 10/21/21 06:00 Completed CREATINE KINASE Stat LAB 10/21/21 05:45 Completed LACTIC ACID Stat LAB 10/21/21 05:45 Completed MOLECULAR FLU A & B [FLU A/B MOLECULAR] Stat LAB 10/21/21 06:30 Completed PRO-BNP [NT-PROBNP] Stat LAB 10/21/21 05:45 Completed PROCALCITONIN Stat LAB 10/21/21 05:45 Completed TROPONIN I Stat LAB 10/21/21 05:45 Completed Albuterol Inhaler(with Spacer) [Ventolin Hfa (Per Puff- MEDS 10/21/21 08:23 Discontinued with Spacer)] 4 puff IH ONCE ONE Albuterol Inhaler(with Spacer) [Ventolin Hfa (Per Puff- MEDS 10/21/21 05:37 Discontinued with Spacer)] 4 puff IH ONCE STA Ceftriaxone/D5w 1 gm Premix [Rocephin 1 gm/50 ml D5w] MEDS 10/21/21 06:28 Discontinued 1 gm in 50 ml IV ONCE Furosemide [Lasix] MEDS 10/21/21 07:52 Discontinued 40 mg IVP ONCE ONE Ipratropium Inhaler(Spacer) [Atrovent Hfa Inhaler (Per MEDS 10/21/21 08:23 Discontinued Puff-with Spacer)] 2 puff IH ONCE ONE Methylprednisolone Sod Succ/Pf [Solu-Medrol 125 mg] MEDS 10/21/21 05:38 Discontinued 125 mg IVP ONCE STA Metoprolol Tartrate [Lopressor] MEDS 10/21/21 08:23 Discontinued 2.5 mg IVP ONCE ONE CHEST, 1V AP ONLY Stat RADS 10/21/21 05:28 Completed Medications Generic Name Dose Route Start Last Admin Trade Name Freq PRN Reason Stop Dose Admin Acetaminophen 650 mg 10/21/21 10:14 10/22/21 15:53 Acetaminophen 325 Mg Tablet PO 650 mg Q8H PRN Administration Mild/Moderate Pain Albuterol Sulfate 4 puff 10/21/21 14:00 10/22/21 13:50 Albuterol Sulfate (Ventolin Hfa) 18 Gm 1 Puff With Spacer IH 4 puff RTQID DILCIA Administration Apixaban 2.5 mg 10/21/21 12:00 10/22/21 08:48 Apixaban 5 Mg Tab PO 2.5 mg BID DILCIA Administration Atropine Sulfate 0.5 mg 10/21/21 17:03 Atropine Sulfate Inj 1 Mg/10 Ml Disp.Syrin IVP ONCE PRN Symptomatic Bradycardia Carvedilol 25 mg 10/21/21 17:00 10/22/21 16:41 Carvedilol 12.5 Mg Tablet PO 25 mg BIDWM DILCIA Administration Chlordiazepoxide HCl 10 mg 10/21/21 21:00 10/22/21 08:48 Chlordiazepoxide Hcl 10 Mg Capsule PO 10 mg BID DILCIA Administration Dexamethasone Sodium Phosphate 4 mg 10/22/21 09:00 10/22/21 08:48 Dexamethasone Sod Phos 4 Mg/Ml Inj IVP 4 mg DAILY DILCIA Administration Diltiazem HCl 60 mg 10/21/21 21:00 10/22/21 08:47 Diltiazem Hcl 60 Mg Tablet PO 60 mg Q12HR DILCIA Administration Furosemide 20 mg 10/22/21 06:30 10/22/21 05:55 Furosemide 20 Mg Tablet PO 20 mg QDAC DILCIA Administration Azithromycin 500 mg/ Sodium 250 mls @ 125 mls/hr 10/21/21 11:00 10/22/21 10:04 Chloride IV 10/23/21 10:59 125 mls/hr DAILY DILCIA Administration Ceftriaxone Sodium 1 gm/ 100 mls @ 150 mls/hr 10/23/21 09:00 Sodium Chloride IV 10/25/21 08:59 DAILY DILCIA Ipratropium Lacon 2 puff 10/21/21 14:00 10/22/21 13:50 Ipratropium [place]acon 12.9 Gm Hfa Inhaler Per Puff With Spacer IH 2 puff RTQID DILCIA Administration Nitroglycerin 0.4 mg 10/21/21 10:29 10/21/21 18:09 Nitroglycerin 0.4 Mg Tab.Subl SL 0.4 mg Q5MIN X 3 DOSES PRN Administration Chest Pain Pantoprazole Sodium 40 mg 10/22/21 17:00 10/22/21 16:42 Pantoprazole Sodium 40 Mg Tablet.Dr PO 40 mg BIDAC DILCIA Administration Potassium Chloride 20 meq 10/22/21 08:30 10/22/21 08:47 Potassium Chloride 20 Meq Tab PO 20 meq DAILYWM DILCIA Administration Sodium Chloride 1 syr 10/21/21 21:00 10/22/21 12:04 0.9% Sodium Chloride 10 Ml Disp.Syrin IVF Not Given Q8HR DILCIA Discontinued Medications Generic Name Dose Route Start Last Admin Trade Name Freq PRN Reason Stop Dose Admin Albuterol Sulfate 4 puff 10/21/21 05:37 10/21/21 06:00 Albuterol Sulfate (Ventolin Hfa) 18 Gm 1 Puff With Spacer IH 10/21/21 05:38 4 puff ONCE STA Administration Albuterol Sulfate 4 puff 10/21/21 08:23 10/21/21 08:40 Albuterol Sulfate (Ventolin Hfa) 18 Gm 1 Puff With Spacer IH 10/21/21 08:24 4 puff ONCE ONE Administration Dexamethasone Sodium Phosphate 4 mg 10/21/21 21:00 Dexamethasone Sod Phos 4 Mg/Ml Inj IVP BID DILCIA Digoxin 125 mcg 10/21/21 11:40 10/21/21 12:09 Digoxin Inj 500 Mcg/2 Ml Amp IVP 10/21/21 11:41 125 mcg ONCE ONE Administration Furosemide 40 mg 10/21/21 07:52 10/21/21 08:01 Furosemide Inj 40 Mg/4 Ml Vial IVP 10/21/21 07:53 40 mg ONCE ONE Administration CEFTRIAXONE/D5W 1 GM PREMIX 1 gm in 50 mls @ 75 mls/hr 10/21/21 06:28 10/21/21 08:02 Rocephin 1 Gm/50 Ml D5w IV 10/21/21 07:07 75 mls/hr ONCE STA Administration CEFTRIAXONE/D5W 1 GM PREMIX 1 gm in 50 mls @ 75 mls/hr 10/22/21 09:00 10/22/21 08:48 Rocephin 1 Gm/50 Ml D5w IV 10/25/21 08:59 75 mls/hr DAILY DILCIA Administration Ipratropium [place] 2 puff 10/21/21 08:23 10/21/21 08:40 Ipratropium [place]acon 12.9 Gm Hfa Inhaler Per Puff With Spacer IH 10/21/21 08:24 2 puff ONCE ONE Administration Methylprednisolone Sodium Succinate 125 mg 10/21/21 05:38 10/21/21 05:45 Methylprednisolone Sod Succ/Pf 125 Mg/2 Ml Vial IVP 10/21/21 05:39 125 mg ONCE STA Administration Metoprolol Tartrate 2.5 mg 10/21/21 08:23 10/21/21 08:53 Metoprolol Tartrate 5 Mg/5 Ml Vial IVP 10/21/21 08:24 2.5 mg ONCE ONE Administration Pantoprazole Sodium 40 mg 10/22/21 06:30 10/22/21 05:55 Pantoprazole Sodium 40 Mg Tablet.Dr PO 40 mg QDAC DILCIA Administration Vital Signs: Temp Pulse Resp BP Pulse Ox 10/21/21 05:32 97.8 F 117 H 24 178/123 H 88 L <TRICIA MOCTEZUMA MD - Last Filed: 10/21/21 10:46> Course Orders, Labs, Meds: Lab Review 10/21/21 10/21/21 10/21/21 05:40 05:45 05:45 WBC 21.86 H RBC 5.66 H Hgb 15.2 Hct 48.6 H MCV 85.9 MCH 26.9 L MCHC 31.3 L RDW Coeff of Sera 14.9 H Plt Count 425 Immature Gran % (Auto) 1.2 Neut % (Auto) 84.2 H Lymph % (Auto) 7.7 L Merrick % (Auto) 5.6 Eos % (Auto) 1.0 Baso % (Auto) 0.3 Neut # (Auto) 18.4 H Lymph # (Auto) 1.7 Merrick # (Auto) 1.2 Eos # (Auto) 0.2 Baso # (Auto) 0.1 Immature Gran # (Auto) 0.3 Puncture Site Lb Base Excess 4.7 H O2 Saturation 87.7 L ABG pH 7.42 ABG pCO2 45.0 ABG pO2 53.0 L* ABG HCO3 29.2 H ABG Total CO2 30.6 H Jose Test + Hemoglobin 1.3 Oxyhemoglobin 89.4 L Carboxyhemoglobin 1.9 H Total Hemoglobin 14.3 FiO2 % 21.0 Sodium 138.2 Potassium 4.26 Chloride 101.5 Carbon Dioxide 29.8 Anion Gap 11.16 BUN 22.5 H Creatinine 1.37 H Estimated GFR (MDRD) 36.00 BUN/Creatinine Ratio 16.42 Glucose 189.6 H Lactic Acid Calcium 9.93 Total Bilirubin 0.54 AST 19.4 ALT 11.8 Alkaline Phosphatase 151.9 H Total Creatine Kinase 28.6 L Troponin I < 0.012 NT-Pro-B Natriuret Pep Total Protein 8.01 Albumin 4.33 Globulin 3.68 Albumin/Globulin Ratio 1.17 Procalcitonin Influ A Molecular Assay Influ B Molecular Assay SARS CoV-2 RNA Rapid ANTONIO SARS-CoV-2 Ag (Rapid) 10/21/21 10/21/21 10/21/21 05:45 05:45 05:45 WBC RBC Hgb Hct MCV MCH MCHC RDW Coeff of Sera Plt Count Immature Gran % (Auto) Neut % (Auto) Lymph % (Auto) Merrick % (Auto) Eos % (Auto) Baso % (Auto) Neut # (Auto) Lymph # (Auto) Merrick # (Auto) Eos # (Auto) Baso # (Auto) Immature Gran # (Auto) Puncture Site Base Excess O2 Saturation ABG pH ABG pCO2 ABG pO2 ABG HCO3 ABG Total CO2 Jose Test Hemoglobin Oxyhemoglobin Carboxyhemoglobin Total Hemoglobin FiO2 % Sodium Potassium Chloride Carbon Dioxide Anion Gap BUN Creatinine Estimated GFR (MDRD) BUN/Creatinine Ratio Glucose Lactic Acid 0.94 Calcium Total Bilirubin AST ALT Alkaline Phosphatase Total Creatine Kinase Troponin I NT-Pro-B Natriuret Pep 6290.000 H Total Protein Albumin Globulin Albumin/Globulin Ratio Procalcitonin < 0.05 Influ A Molecular Assay Influ B Molecular Assay SARS CoV-2 RNA Rapid ANTONIO SARS-CoV-2 Ag (Rapid) 10/21/21 10/21/21 10/21/21 06:00 06:30 07:34 WBC RBC Hgb Hct MCV MCH MCHC RDW Coeff of Sera Plt Count Immature Gran % (Auto) Neut % (Auto) Lymph % (Auto) Merrick % (Auto) Eos % (Auto) Baso % (Auto) Neut # (Auto) Lymph # (Auto) Merrick # (Auto) Eos # (Auto) Baso # (Auto) Immature Gran # (Auto) Puncture Site Base Excess O2 Saturation ABG pH ABG pCO2 ABG pO2 ABG HCO3 ABG Total CO2 Jose Test Hemoglobin Oxyhemoglobin Carboxyhemoglobin Total Hemoglobin FiO2 % Sodium Potassium Chloride Carbon Dioxide Anion Gap BUN Creatinine Estimated GFR (MDRD) BUN/Creatinine Ratio Glucose Lactic Acid Calcium Total Bilirubin AST ALT Alkaline Phosphatase Total Creatine Kinase Troponin I NT-Pro-B Natriuret Pep Total Protein Albumin Globulin Albumin/Globulin Ratio Procalcitonin Influ A Molecular Assay Negative by naat Influ B Molecular Assay Negative by naat SARS CoV-2 RNA Rapid ANTONIO Negative SARS-CoV-2 Ag (Rapid) Negative Orders Category Date Time Status ABG DRAW REQUEST Stat CARDIO 10/21/21 05:29 Completed EKG-(ED ONLY) Stat CARDIO 10/21/21 05:28 Completed METERED DOSE INHALATION Routine CARDIO 10/21/21 05:37 Completed METERED DOSE INHALATION Routine CARDIO 10/21/21 08:24 Completed ABG COOX Stat LAB 10/21/21 05:40 Completed BLOOD CULTURE (ED ONLY) Stat LAB 10/21/21 05:45 Results CBC W/ AUTO DIFF Stat LAB 10/21/21 05:45 Completed COMPREHENSIVE METABOLIC PANEL Stat LAB 10/21/21 05:45 Completed COVID-19 ANTIGEN TEST Stat LAB 10/21/21 06:00 Completed CREATINE KINASE Stat LAB 10/21/21 05:45 Completed LACTIC ACID Stat LAB 10/21/21 05:45 Completed MOLECULAR FLU A & B [FLU A/B MOLECULAR] Stat LAB 10/21/21 06:30 Completed PRO-BNP [NT-PROBNP] Stat LAB 10/21/21 05:45 Completed PROCALCITONIN Stat LAB 10/21/21 05:45 Completed TROPONIN I Stat LAB 10/21/21 05:45 Completed Albuterol Inhaler(with Spacer) [Ventolin Hfa (Per Puff- MEDS 10/21/21 08:23 Discontinued with Spacer)] 4 puff IH ONCE ONE Albuterol Inhaler(with Spacer) [Ventolin Hfa (Per Puff- MEDS 10/21/21 05:37 Discontinued with Spacer)] 4 puff IH ONCE STA Ceftriaxone/D5w 1 gm Premix [Rocephin 1 gm/50 ml D5w] MEDS 10/21/21 06:28 Discontinued 1 gm in 50 ml IV ONCE Furosemide [Lasix] MEDS 10/21/21 07:52 Discontinued 40 mg IVP ONCE ONE Ipratropium Inhaler(Spacer) [Atrovent Hfa Inhaler (Per MEDS 10/21/21 08:23 Discontinued Puff-with Spacer)] 2 puff IH ONCE ONE Methylprednisolone Sod Succ/Pf [Solu-Medrol 125 mg] MEDS 10/21/21 05:38 Discontinued 125 mg IVP ONCE STA Metoprolol Tartrate [Lopressor] MEDS 10/21/21 08:23 Discontinued 2.5 mg IVP ONCE ONE CHEST, 1V AP ONLY Stat RADS 10/21/21 05:28 Completed Medications Generic Name Dose Route Start Last Admin Trade Name Freq PRN Reason Stop Dose Admin Acetaminophen 650 mg 10/21/21 10:14 10/22/21 15:53 Acetaminophen 325 Mg Tablet PO 650 mg Q8H PRN Administration Mild/Moderate Pain Albuterol Sulfate 4 puff 10/21/21 14:00 10/22/21 13:50 Albuterol Sulfate (Ventolin Hfa) 18 Gm 1 Puff With Spacer IH 4 puff RTQID DILCIA Administration Apixaban 2.5 mg 10/21/21 12:00 10/22/21 08:48 Apixaban 5 Mg Tab PO 2.5 mg BID DILCIA Administration Atropine Sulfate 0.5 mg 10/21/21 17:03 Atropine Sulfate Inj 1 Mg/10 Ml Disp.Syrin IVP ONCE PRN Symptomatic Bradycardia Carvedilol 25 mg 10/21/21 17:00 10/22/21 16:41 Carvedilol 12.5 Mg Tablet PO 25 mg BIDWM DILCIA Administration Chlordiazepoxide HCl 10 mg 10/21/21 21:00 10/22/21 08:48 Chlordiazepoxide Hcl 10 Mg Capsule PO 10 mg BID DILCIA Administration Dexamethasone Sodium Phosphate 4 mg 10/22/21 09:00 10/22/21 08:48 Dexamethasone Sod Phos 4 Mg/Ml Inj IVP 4 mg DAILY DILCIA Administration Diltiazem HCl 60 mg 10/21/21 21:00 10/22/21 08:47 Diltiazem Hcl 60 Mg Tablet PO 60 mg Q12HR DILCIA Administration Furosemide 20 mg 10/22/21 06:30 10/22/21 05:55 Furosemide 20 Mg Tablet PO 20 mg QDAC DILCIA Administration Azithromycin 500 mg/ Sodium 250 mls @ 125 mls/hr 10/21/21 11:00 10/22/21 10:04 Chloride IV 10/23/21 10:59 125 mls/hr DAILY DILCIA Administration Ceftriaxone Sodium 1 gm/ 100 mls @ 150 mls/hr 10/23/21 09:00 Sodium Chloride IV 10/25/21 08:59 DAILY DILCIA Ipratropium [place]acon 2 puff 10/21/21 14:00 10/22/21 13:50 Ipratropium [place]acon 12.9 Gm Hfa Inhaler Per Puff With Spacer IH 2 puff RTQID DILCIA Administration Nitroglycerin 0.4 mg 10/21/21 10:29 10/21/21 18:09 Nitroglycerin 0.4 Mg Tab.Subl SL 0.4 mg Q5MIN X 3 DOSES PRN Administration Chest Pain Pantoprazole Sodium 40 mg 10/22/21 17:00 10/22/21 16:42 Pantoprazole Sodium 40 Mg Tablet.Dr PO 40 mg BIDAC DILCIA Administration Potassium Chloride 20 meq 10/22/21 08:30 10/22/21 08:47 Potassium Chloride 20 Meq Tab PO 20 meq DAILYWM DILCIA Administration Sodium Chloride 1 syr 10/21/21 21:00 10/22/21 12:04 0.9% Sodium Chloride 10 Ml Disp.Syrin IVF Not Given Q8HR [facility] Discontinued Medications Generic Name Dose Route Start Last Admin Trade Name Freq PRN Reason Stop Dose Admin Albuterol Sulfate 4 puff 10/21/21 05:37 10/21/21 06:00 Albuterol Sulfate (Ventolin Hfa) 18 Gm 1 Puff With Spacer IH 10/21/21 05:38 4 puff ONCE STA Administration Albuterol Sulfate 4 puff 10/21/21 08:23 10/21/21 08:40 Albuterol Sulfate (Ventolin Hfa) 18 Gm 1 Puff With Spacer IH 10/21/21 08:24 4 puff ONCE ONE Administration Dexamethasone Sodium Phosphate 4 mg 10/21/21 21:00 Dexamethasone Sod Phos 4 Mg/Ml Inj IVP BID DILCIA Digoxin 125 mcg 10/21/21 11:40 10/21/21 12:09 Digoxin Inj 500 Mcg/2 Ml Amp IVP 10/21/21 11:41 125 mcg ONCE ONE Administration Furosemide 40 mg 10/21/21 07:52 10/21/21 08:01 Furosemide Inj 40 Mg/4 Ml Vial IVP 10/21/21 07:53 40 mg ONCE ONE Administration CEFTRIAXONE/D5W 1 GM PREMIX 1 gm in 50 mls @ 75 mls/hr 10/21/21 06:28 10/21/21 08:02 Rocephin 1 Gm/50 Ml D5w IV 10/21/21 07:07 75 mls/hr ONCE STA Administration CEFTRIAXONE/D5W 1 GM PREMIX 1 gm in 50 mls @ 75 mls/hr 10/22/21 09:00 10/22/21 08:48 Rocephin 1 Gm/50 Ml D5w IV 10/25/21 08:59 75 mls/hr DAILY DILCIA Administration Ipratropium [place] 2 puff 10/21/21 08:23 10/21/21 08:40 Ipratropium [place] 12.9 Gm Hfa Inhaler Per Puff With Spacer IH 10/21/21 08:24 2 puff ONCE ONE Administration Methylprednisolone Sodium Succinate 125 mg 10/21/21 05:38 10/21/21 05:45 Methylprednisolone Sod Succ/Pf 125 Mg/2 Ml Vial IVP 10/21/21 05:39 125 mg ONCE STA Administration Metoprolol Tartrate 2.5 mg 10/21/21 08:23 10/21/21 08:53 Metoprolol Tartrate 5 Mg/5 Ml Vial IVP 10/21/21 08:24 2.5 mg ONCE ONE Administration Pantoprazole Sodium 40 mg 10/22/21 06:30 10/22/21 05:55 Pantoprazole Sodium 40 Mg Tablet.Dr PO 40 mg QDAC DILCIA Administration Vital Signs: Temp Pulse Resp BP Pulse Ox 10/21/21 05:32 97.8 F 117 H 24 178/123 H 88 L Discharge Plan Discharge Patient Disposition: ADMITTED INPATIENT Discharge Problem: CHF (congestive heart failure), Pneumonia ED Provider: TRICIA MOCTEZUMA Condition: Serious <MANUEL SAMS MD - Last Filed: 10/22/21 19:27> Physician Progress Note: [Reviewed Echo FABIO KAUR MD Date/Time: 09/03/20 1100 M-MODE: MV:MITRAL VALVE PROLAPSE LATE SYSTOLIC AV: NORMAL TV: NORMAL PV: NORMAL CHAMBER SIZE: BORDERLINE LEFT ATRIAL CAVITY ENLARGEMENT WALL MOTION:NORMAL PERICARDIUM: NORMAL INTERPRETATION: 1.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 NORMAL LEFT VENTRICLE SIZE AND CONTRACTILITY ] 10/21/2021: Pt was d/w Dr Kaur and accepted for admission. See orders.
[2021-10-21] MEDS ORDERED: VENTOLIN HFA (PER PUFF-WITH SPACER) IH STA (05:37)
[2021-10-21] MEDS ORDERED: SOLU-MEDROL 125 MG IVP STA (05:38)
[2021-10-21 05:49] LABS: BASOPHILS # (AUTO) 0.1 K/uL (0-0.2); BASOPHILS % (AUTO) 0.3 % (0.0-3.0); EOSINOPHILS # (AUTO) 0.2 K/ul (0.0-0.7); HEMATOCRIT 48.6 % (37.0-47.0); HEMOGLOBIN 15.2 g/dl (12.0-16.0); IMMATURE GRANULOCYTE # (AUTO) 0.3 (0.0-1.0); IMMATURE GRANULOCYTE % (AUTO) 1.2 % (0.0-5.0); LYMPHOCYTES # (AUTO) 1.7 K/uL (0.60-3.4); LYMPHOCYTES % (AUTO) 7.7 (10.0-50.0); MEAN CORPUSCULAR HEMOGLOBIN 26.9 pg (27.0-31.0); MEAN CORPUSCULAR HGB CONC 31.3 (31.8-35.4); MEAN CORPUSCULAR VOLUME 85.9 fl (81.0-99.0); MONOCYTES # (AUTO) 1.2 K/uL (0.4-2.0); MONOCYTES % (AUTO) 5.6 (0-10); NEUTROPHILS # (AUTO) 18.4 K/ul (2.0-6.9); NEUTROPHILS % (AUTO) 84.2 % (42.2-75.2); PLATELET COUNT 425 10^3/uL (140-440); RDW COEFFICIENT OF VARIATION 14.9 % (11.6-14.8); RED BLOOD COUNT 5.66 10^6/ul (4.20-5.40); WHITE BLOOD COUNT 21.86 K/ul (4.6-10.2)
[2021-10-21 05:57] LABS: ABG O2 HGB 89.4 % (95-100); ABG PH 7.42 (7.35-7.45); BEecf 4.7 (-2.0-3.0); COHb 1.9 (0.5-1.5); HCO3 29.2 (21-28); MetHb 1.3 (0-1.5); TCO2 30.6 (19-24); sO2 87.7 % (94-98); tHb 14.3 g/dl (11.7-17.4)
[2021-10-21 06:03] LABS: ALANINE AMINOTRANSFERASE 11.8 U/L (0-35); ALBUMIN 4.33 g/dL (3.5-5.0); ALKALINE PHOSPHATASE 151.9 U/L (53-141); ASPARTATE AMINO TRANSFERASE 19.4 U/L (14-36); BILIRUBIN,TOTAL 0.54 mg/dL (0.2-1.3); BLOOD UREA NITROGEN 22.5 mg/dL (7-17); CALCIUM 9.93 mg/dL (8.4-10.2); CARBON DIOXIDE 29.8 mmol/L (22-30.0); CHLORIDE 101.5 mmol/L (98-107); CREATINE KINASE 28.6 U/L (30-135); CREATININE 1.37 mg/dL (0.60-1.30); GLUCOSE 189.6 mg/dL (74-106); POTASSIUM 4.26 mmol/L (3.5-5.1); SODIUM 138.2 mmol/L (134.5-145); TOTAL PROTEIN 8.01 g/dL (6.3-8.2)
[2021-10-21] MEDS ORDERED: ROCEPHIN 1 GM VIAL 1 GM in SODIUM CHLORIDE 100ML 100 ML IV STA (06:19)
[2021-10-21 06:20] LABS: TROPONIN I < 0.012 ng/ml (0.0000-0.120)
[2021-10-21] MEDS ORDERED: ROCEPHIN 1 GM/50 ML D5W 1 GM/50 ML BAG IV STA (06:28)
[2021-10-21 06:51] LABS: MOLECULAR FLU A NEGATIVE BY NAAT (NEGATIVE); MOLECULAR FLU B NEGATIVE BY NAAT (NEGATIVE)
--- NOTE | 2021-10-21 07:13 | DI ---
EXAM: Chest one view, frontal view only. HISTORY: Shortness of breath. COMPARISON: 08/30/2020. FINDINGS: Cardiac silhouette enlarged. Atherosclerotic calcifications present. There may be centra l vascular congestion. Diffuse reticular opacities throughout both lungs with patchy areas of consol idation. Minimal blunting of the costophrenic angles. No acute osseous abnormality. Hiatal hernia again noted. IMPRESSION: Findings suggestive of pulmonary edema. Correlate for pneumonia.
[2021-10-21] MEDS ORDERED: LASIX IVP ONE (07:52)
[2021-10-21] MEDS ORDERED: ATROVENT HFA INHALER (PER PUFF-WITH SPACER) IH ONE (08:23)
[2021-10-21] MEDS ORDERED: VENTOLIN HFA (PER PUFF-WITH SPACER) IH ONE (08:23)
[2021-10-21] MEDS ORDERED: LOPRESSOR IVP ONE (08:23)
[2021-10-21] MEDS ORDERED: NITROSTAT SL PRN (10:29)
[2021-10-21 11:15] VITALS: BMI 18.7
[2021-10-21] MEDS ORDERED: LANOXIN IVP ONE (11:40)
[2021-10-21] MEDS: ZITHROMAX 500 MG in SODIUM CHLORIDE 250 ML IV SCH (11:44)
[2021-10-21] MEDS: ELIQUIS PO SCH ×2 (12:16→20:22)
[2021-10-21 12:22] LABS: BILIRUBIN,URINE Negative (NEGATIVE); CLARITY,URINE Clear (CLEAR); COLOR,URINE Yellow (YELLOW); GLUCOSE, URINE (UA) Negative (NEGATIVE); KETONES,URINE Negative (NEGATIVE); LEUKOCYTE ESTERASE ,URINE Negative (NEGATIVE); NITRITE,URINE Negative (NEGATIVE); PROTEIN,URINE Negative (NEGATIVE); URINE, BLOOD Negative (NEGATIVE); UROBILINOGEN,URINE 0.2 (0.2)
[2021-10-21] MEDS: ATROVENT HFA INHALER (PER PUFF-WITH SPACER) IH SCH ×2 (14:07→19:25)
[2021-10-21] MEDS: VENTOLIN HFA (PER PUFF-WITH SPACER) IH SCH ×2 (14:07→19:25)
[2021-10-21] MEDS: COREG PO SCH (16:33)
[2021-10-21] MEDS ORDERED: LASIX IVP SCH (17:00)
[2021-10-21] MEDS ORDERED: ATROPINE SULFATE PFS IVP PRN (17:03)
[2021-10-21 17:58] LABS: CREATINE KINASE 27.2 U/L (30-135)
[2021-10-21 18:11] LABS: TROPONIN I 0.015 ng/ml (0.0000-0.120)
[2021-10-21 18:42] LABS: CREATINE KINASE 23.6 U/L (30-135)
[2021-10-21 18:55] LABS: TROPONIN I 0.018 ng/ml (0.0000-0.120)
[2021-10-21] MEDS: LIBRIUM PO SCH (20:22)
[2021-10-21] MEDS: CARDIZEM PO SCH (20:22)
[2021-10-21] MEDS ORDERED: DECADRON IVP SCH (21:00)
[2021-10-22 01:43] LABS: ALANINE AMINOTRANSFERASE 9.7 U/L (0-35); ALBUMIN 3.26 g/dL (3.5-5.0); ALKALINE PHOSPHATASE 85.2 U/L (53-141); ASPARTATE AMINO TRANSFERASE 15.6 U/L (14-36); BILIRUBIN,TOTAL 0.29 mg/dL (0.2-1.3); BLOOD UREA NITROGEN 44.3 mg/dL (7-17); CALCIUM 8.41 mg/dL (8.4-10.2); CARBON DIOXIDE 31.4 mmol/L (22-30.0); CHLORIDE 101.3 mmol/L (98-107); CREATININE 1.68 mg/dL (0.60-1.30); POTASSIUM 4.21 mmol/L (3.5-5.1); SODIUM 136.4 mmol/L (134.5-145)
[2021-10-22 01:55] LABS: BASOPHILS % (AUTO) 0.2 % (0.0-3.0); HEMATOCRIT 37.1 % (37.0-47.0); HEMOGLOBIN 11.8 g/dl (12.0-16.0); IMMATURE GRANULOCYTE # (AUTO) 0.2 (0.0-1.0); IMMATURE GRANULOCYTE % (AUTO) 1.6 % (0.0-5.0); LYMPHOCYTES # (AUTO) 0.7 K/uL (0.60-3.4); LYMPHOCYTES % (AUTO) 7.4 (10.0-50.0); MEAN CORPUSCULAR HEMOGLOBIN 26.8 pg (27.0-31.0); MEAN CORPUSCULAR HGB CONC 31.8 (31.8-35.4); MEAN CORPUSCULAR VOLUME 84.3 fl (81.0-99.0); MONOCYTES # (AUTO) 0.3 K/uL (0.4-2.0); MONOCYTES % (AUTO) 2.9 (0-10); NEUTROPHILS # (AUTO) 8.6 K/ul (2.0-6.9); NEUTROPHILS % (AUTO) 87.9 % (42.2-75.2); PLATELET COUNT 316 10^3/uL (140-440); RDW COEFFICIENT OF VARIATION 14.9 % (11.6-14.8); WHITE BLOOD COUNT 9.75 K/ul (4.6-10.2)
[2021-10-22 01:59] LABS: CREATINE KINASE < 20.0 U/L (30-135)
[2021-10-22 02:50] LABS: TROPONIN I 0.013 ng/ml (0.0000-0.120)
[2021-10-22] MEDS: VENTOLIN HFA (PER PUFF-WITH SPACER) IH SCH ×4 (04:30→19:25)
[2021-10-22] MEDS: ATROVENT HFA INHALER (PER PUFF-WITH SPACER) IH SCH ×4 (04:30→19:25)
[2021-10-22] MEDS: LASIX TAB PO SCH (05:55)
[2021-10-22] MEDS ORDERED: PROTONIX PO SCH (06:30)
[2021-10-22] MEDS: CARDIZEM PO SCH ×2 (08:47→20:16)
[2021-10-22] MEDS: COREG PO SCH ×2 (08:47→16:41)
[2021-10-22] MEDS: K-DUR PO SCH (08:47)
[2021-10-22] MEDS: DECADRON IVP SCH (08:48)
[2021-10-22] MEDS: ELIQUIS PO SCH ×2 (08:48→20:17)
[2021-10-22] MEDS: LIBRIUM PO SCH ×2 (08:48→20:16)
[2021-10-22] MEDS ORDERED: NORVASC PO SCH (09:00)
[2021-10-22] MEDS ORDERED: ROCEPHIN 1 GM/50 ML D5W 1 GM/50 ML BAG IV SCH (09:00)
--- NOTE | 2021-10-22 09:34 | PCM.PROG ---
Attending Provider: ATTENDING PROVIDER: Dr. FABIO OSUNA This patient is seen with Bouchra Wood, Nurse Practitioner. DATE OF SERVICE: 10/22/21 SUBJECTIVE: This 86 year old /WHITE F was hospitalized 10/21/21. Resting comfortably. Heart rate has been controlled through the night. Still on oxygen. She has multiple voids. Remain in atrial fibrillation. Labs are significantly different from admission. We will repeat just to make sure they are correct. Respiratory status is stable. She is sitting up and eating breakfast. REVIEW OF SYSTEMS: CONSTITUTIONAL: No night sweats. No fatigue, malaise, lethargy. No fever or chills. Weakness. HEENT: Eyes: No visual changes. No eye pain. No eye discharge. ENT: No runny nose. No epistaxis. No sinus pain. No odynophagia. No congestion. RESPIRATORY: No cough, no congestion. No hemoptysis. Shortness of breath. CARDIOVASCULAR: No angina symptoms. No CHF symptoms. No atypical chest pain for CAD. No palpitations. No orthopnea.. GASTROINTESTINAL: No abdominal pain. No nausea or vomiting. No diarrhea or constipation. No hematemesis. No hematochezia. GENITOURINARY: No urgency. No frequency. No dysuria. No hematuria. No obstruc tive symptoms. No discharge. No pain. No significant abnormal bleeding. MUSCULOSKELETAL: No musculoskeletal pain; no joint swelling. NEUROLOGICAL: Awake, alert, oriented to time, place and person. No headache. No neck pain. No syncope. No seizures. No dizziness. PSYCHIATRIC: Not anxious. No depression. No suicidal thoughts. No homicidal thoughts. SKIN: No rash. No lesions. No wounds. ENDOCRINE: No unexplained weight loss. No weight gain. HEMATOLOGIC/LYMPHATIC: No anemia. No purpura. No petechiae. No prolonged or excessive bleeding. No palpable lymph nodes. PHYSICAL EXAMINATION: GENERAL: The patient is awake, alert and oriented, sitting in bed in no distress. VITAL SIGNS: Temperature 98.0 F, Pulse 79, Respiratory Rate 18, BP 124/65, Pulse Ox 96% HEENT: Head normocephalic, atraumatic. Eyes: Extraocular muscles are intact. Pupils are equal, round and reactive to light and accommodation. Ears: No lesions. Nose appeared normal. Throat: No exudate or erythema. NECK: Supple. No JVD, no carotid bruit. No lymphadenopathy or thyromegaly. LUNGS: Diminished breath sounds. Clear to auscultation. Crackles at the bases. Percussion note normal. Chest symmetrical. HEART: S1, S2, no S3. No murmurs. Irregular heart rate. No cyanosis or clubbing. No ascites. Pulses: Dorsalis pedis and posterior tibial pulses +1 to +2 both sides. ABDOMEN: Soft. Non-tender. Bowel sounds active. No CVA tenderness. No mass felt. EXTREMITIES: No edema. Full range of motion of all extremities, equal. NEUROLOGIC: No focal deficit. Cranial nerves II through XII are grossly intact. No headache. No double vision. SKIN: Not dry. Intact. Turgor-normal. LYMPHATIC: No palpable lymph nodes/no lymphedema. MUSCULOSKELETAL: Normal joints with no swelling. Muscle tone is normal. LAB REVIEW: 10/22/21 01:25 10/22/21 01:25 10/22/21 01:25: Sodium 136.4, Potassium 4.21, Chloride 101.3, Carbon Dioxide 31.4 H, Anion Gap 7.91, BUN 44.3 H, Creatinine 1.68 H, Estimated GFR (MDRD) 29.0 0, BUN/Creatinine Ratio 26.36, Glucose 178.0 H, Calcium 8.41, Total Bilirubin 0.29, AST 15.6, ALT 9.7, Alkaline Phosphatase 85.2 D, Total Creatine Kinase < 20.0 L, Troponin I 0.013, Total Protein 6.30, Albumin 3.26 L, Globulin 3.04, Albumin/Globulin Ratio 1.07 10/22/21 01:25: WBC 9.75 D, RBC 4.40, Hgb 11.8 L D, Hct 37.1 D, MCV 84.3, MCH 26.8 L, MCHC 31.8, RDW Coeff of Sera 14.9 H, Plt Count 316, Immature Gran % (Auto) 1.6, Neut % (Auto) 87.9 H, Lymph % (Auto) 7.4 L, Stone % (Auto) 2.9, Eos % (Auto) 0.0, Baso % (Auto) 0.2, Neut # (Auto) 8.6 H, Lymph # (Auto) 0.7, Stone # (Auto) 0.3 L, Eos # (Auto) 0.0, Baso # (Auto) 0.0, Immature Gran # (Auto) 0.2 10/21/21 18:27: Total Creatine Kinase 23.6 L, Troponin I 0.018 10/21/21 17:42: Total Creatine Kinase 27.2 L, Troponin I 0.015 10/21/21 12:18: Urine Color Yellow, Urine Clarity Clear, Urine pH 5.0, Ur Specific [place] 1.010, Urine Protein Negative, Urine Glucose (UA) Negative, Urine Ketones Negative, Urine Blood Negative, Urine Nitrite Negative, Urine Bilirubin Negative, Urine Urobilinogen 0.2, Ur Leukocyte Esterase Negative ASSESSMENT: Please see below. 1. Acute respiratory failure 2. Pulmonary edema 3. Acute pneuonia 4. Chronic kidney disease stage II 5. History of mitral valve prolapse with normal ejection fraction 03/31 PLAN: 1. 2D echo 2. Repeat CBC and CMP Plan and coordination of the patient's care discussed in the presence of [employer] and nurse. SCRIBED BY: Abib MILES scribed while in presence of service performed by Dr. Osuna/Bouchra Wood APRN on 10/22/21 ([id number])
[2021-10-22] MEDS: ZITHROMAX 500 MG in SODIUM CHLORIDE 250 ML IV SCH (10:04)
[2021-10-22 11:38] LABS: BASOPHILS % (AUTO) 0.1 % (0.0-3.0); HEMATOCRIT 38.8 % (37.0-47.0); HEMOGLOBIN 12.2 g/dl (12.0-16.0); IMMATURE GRANULOCYTE # (AUTO) 0.1 (0.0-1.0); IMMATURE GRANULOCYTE % (AUTO) 0.9 % (0.0-5.0); LYMPHOCYTES # (AUTO) 0.6 K/uL (0.60-3.4); MEAN CORPUSCULAR HEMOGLOBIN 26.6 pg (27.0-31.0); MEAN CORPUSCULAR HGB CONC 31.4 (31.8-35.4); MEAN CORPUSCULAR VOLUME 84.7 fl (81.0-99.0); MONOCYTES # (AUTO) 0.4 K/uL (0.4-2.0); MONOCYTES % (AUTO) 2.6 (0-10); NEUTROPHILS % (AUTO) 92.2 % (42.2-75.2); PLATELET COUNT 325 10^3/uL (140-440); RED BLOOD COUNT 4.58 10^6/ul (4.20-5.40); WHITE BLOOD COUNT 14.09 K/ul (4.6-10.2)
[2021-10-22 11:53] LABS: ALANINE AMINOTRANSFERASE 13.7 U/L (0-35); ALBUMIN 3.54 g/dL (3.5-5.0); ALKALINE PHOSPHATASE 88.7 U/L (53-141); ASPARTATE AMINO TRANSFERASE 15.8 U/L (14-36); BILIRUBIN,TOTAL 0.29 mg/dL (0.2-1.3); CALCIUM 8.66 mg/dL (8.4-10.2); CARBON DIOXIDE 28.3 mmol/L (22-30.0); CHLORIDE 101.3 mmol/L (98-107); CREATININE 1.68 mg/dL (0.60-1.30); POTASSIUM 4.44 mmol/L (3.5-5.1); SODIUM 138.5 mmol/L (134.5-145); TOTAL PROTEIN 6.61 g/dL (6.3-8.2)
[2021-10-22 11:57] LABS: LYMPHOCYTES % (AUTO) 4.2 (10.0-50.0)
--- NOTE | 2021-10-22 14:42 | HP ---
DATE OF SERVICE: 10/21/21 REASON FOR HOSPITALIZATION/HISTORY OF PRESENT ILLNESS: This is an 86 year old white female who presents to the emergency room complaining of shortness of breath. She has had both COVID vaccine and the booster. She is ebing treated with a Z-pack. Her cough is productive, white frothy. PAST MEDICAL HISTORY: Recurrent UTI Right nephrolithiasis per CT Bilateral carotid stenosis at 50-70% GERD Hiatal hernia History of GI bleed in 2014 with diverticulitis Weight loss Generalized osteoarthritis Diabetes mellitus type II Hypertension Chronic kidney disease stage 3 to 4. Echo in 2019 ejection fracture 60% Mitral Valve prolapse History of falls Dyslipidemia PAST SURGICAL HISTORY: The patient has refused colonoscopy. She has never had a mammogram. REVIEW OF SYSTEMS: CONSTITUTIONAL: No night sweats. No fatigue, malaise, lethargy. No fever or chills. Weakness. HEENT: Eyes: No visual changes. No eye pain. No eye discharge. ENT: No runny nose. No epistaxis. No sinus pain. No sore throat. No odynophagia. No ear pain. No congestion. RESPIRATORY: No cough, no congestion. No hemoptysis. Shortness of breath. CARDIOVASCULAR: No angina symptoms. No CHF symptoms. No atypical chest pain for CAD. No palpitations. No PND. No orthopnea. GASTROINTESTINAL: No abdominal pain. No nausea or vomiting. No diarrhea or constipation. No hematemesis. No hematochezia. GENITOURINARY: No urgency. No frequency. No dysuria. No hematuria. No obstructive symptoms. No discharge. No pain. No significant abnormal bleeding. MUSCULOSKELETAL: No musculoskeletal pain. No joint swelling. No arthritis. NEUROLOGICAL: No headache. No neck pain. No syncope. No seizures. No dizziness. PSYCHIATRIC: Not anxious. No depression. No suicidal thoughts. No homicidal thoughts. SKIN: No rash. No lesions. No wounds. ENDOCRINE: No unexplained weight loss. No weight gain. HEMATOLOGIC/LYMPHATIC: No anemia. No purpura. No petechiae. No prolonged or excessive bleeding. No palpable lymph nodes. PERSONAL/FAMILY/SOCIAL HISTORY: The is and lives at home by herself. She is a former smoker. No alcohol or illicit drug use. She has quit for past 15 years. MEDICATIONS: Chlordiazepoxide 10mg PO BID Nitrostat 0.4mg sublingual Carvedilol 25mg PO BID Pantoprazole 40mg Po daily Famotidine 20mg PO BEDTIME Cinnamon 500mg PO daily Multivitamin 1 tablet PO ribeiro Amlodipine 5mg PO daily Eye Vitamin and Minerals one tablet PO daily ALLERGIES: Ibuprofen Meperidine PHYSICAL EXAMINATION: VITAL SIGNS: Temperature 97.8, heart rate 117, blood pressure 178/123, pulse ox 88% on room air. HEENT: Head normocephalic, atraumatic. Eyes: Extraocular muscles are intact. Pupils are equal, round and reactive to light and accommodation. Ears: No lesions. Nose appeared normal. Throat: No exudate or erythema. NECK: Supple. No JVD, no carotid bruit. No lymphadenopathy or thyromegaly. LUNGS: Diminished breath sounds bilaterally. Clear to auscultation. Percussion note normal. Chest symmetrical. HEART: S1, S2, no S3. No murmur. No cyanosis or clubbing. No ascites. Pulses: Dorsalis pedis and posterior tibial pulses +1 to +2 bilaterally. ABDOMEN: Soft. Nontender. Bowel sounds active. No CVA tenderness. No mass felt. EXTREMITIES: Trace leg edema. Full range of motion of all extremities, equal. NEUROLOGIC: No focal deficit. Cranial nerves II through XII are grossly intact. No headache, no double vision or headache. SKIN: Not dry. Intact. Turgor - normal. LYMPHATIC: No palpable lymph nodes/no lymphedema. MUSCULOSKELETAL: Normal joints with no swelling. Muscle tone is normal. LABS: WBC 21,000, hgb 15.2, hct 48.6, plt count 425, sodium 138, potassium 4.2, BUN 22, creatinine 1.37, glucose 189, ABG on room air O2 saturation 87, pH 7.42, pCo2 45, pO2 53. Bicarb 29.2, alkaline phosphatase 159, total CK 28, Troponin less than 0.012, Lactic acid 0.94. Rapid Flu A and B are both negative. Chest x- ray shows pulmonary edema correlates for pneumonia. ASSESSMENT: 1. Acute respiratory failure 2. Pulmonary edema 3. New onset atrial fibrillation 4. Hypertension PLAN: 1. We will admit 2. Routine telemetry orders 3. CBC and CMP daily 4. Continue home medications 5. Lasix 40mg IV times one and then start 40mg PO daily tomorrow 6. Digoxin 0.125mg IV now 7. CBC and CMP daily 8. Continue home medications 9. No IV fluids 10.Regular diet 11.Oxygen at 2 liters via nasal cannula 12.Monitor I&O 13.Daily weights 14.Will follow closely. TIME SPENT: More than 70 minutes. MTDD
--- NOTE | 2021-10-22 14:54 | PN ---
DATE OF SERVICE: 10/21/21 SUBJECTIVE: The patient was started on Eliquis 2.5mg BID because of her weight and age she is on half the dose. The patient was explained about intracranial bleed and GI bleed. The patient's son in the room. The patient advised not to take any nonsteroidal antiinflammatory. She has atrial fibrillation with CHADS VASC score of more than 3. TIME SPENT: More than 30 minutes. Plan and coordination of the patient's care discussed in the presence of nurse. KIKO
--- NOTE | 2021-10-22 14:58 | PN ---
DATE OF SERVICE: 10/21/21 ADMIT NOTE SUBJECTIVE: This morning the patient came to the emergency room with sudden onset of shortness of breath. Onset 12-24 hours. The patient had cough with foamy sputum. She was white in color. The patient's arterial blood gasses showed severe hypoxemia with pO2 in the range of 50. Blood pressure was more than 160/120. She was respiratory distress. The patient's chest x-ray showed pulmonary edema. Physical exam when I checked her she was feeling a lot better. She has already got Lasix 40mg nearly three hours ago. She was breathing a lot better and she wasn't in any distress. She has a few crepitations at bases with mild wheeze. S1, S2 irregular. Trace edema was noted to be 1cm. ASSESSMENT: 1. Acute pulmonary edema 2. Severe Hypertension 3. Atrial fibrillation with rapid ventricular response PLAN: 1. Given IV Lasix as given 2. PO Lasix 20mg PO daily 3. K-Tab 10meq PO daily 4. IV Lanoxin 0.25mg given for the rate control 5. Routine telemetry orders TIME SPENT: More than 30 minutes. Plan and coordination of the patient's care discussed in the presence of nurse. KIKO
--- NOTE | 2021-10-22 15:18 | RS.PTINEVL ---
Subjective - Patient information Date of Evaluation: 10/22/21 Date of Arrival on Unit: 10/21/21 Admitted From:: Home Diagnosis: CHF, pneumonia Usual Living Arrangement: Alone Living Arrangement Comments: pt has homemaker 2 days a week. Medical History: Hypertension, Arthritis Medical History Comments:: GERD, hernia Medications: see chart Subjective Information/ Patient Comments:: pt states "I go too fast at home, I need to slow down." pt's grandson states she doesn't like to let him move or change anything to make it more safe. pt did report she feels she needs a rwx for home. - Level of function Prior to this admission, the patient could do the following:: Independent ADL's, Independent Ambulation Current Level of Function: Partially Dependent Current Equipment Used at Home: shower chair Interventions - Objective Patient Orientation: Person, Place, Time, Situation Current Interventions: IV's, Oxygen (2 liters O2), Telemetry Range of Motion - ROM Right Upper Extremity AROM: WFL's Left Upper Extremity AROM: WFL's Right Lower Extremity AROM: WFL's Left Lower Extremity AROM: WFL's Muscle Strength - Muscle Strength Right Upper Extremity Strength: Mild Weakness (grossly 4-/5) Left Upper Extremity Strength: Mild Weakness (grossly 4-/5) Right Lower Extremity Strength: Mild Weakness (hip flex 4-/5, knee flex/ext 4/5, ankle DF/PF 4/5) Left Lower Extremity Strength: Mild Weakness (hip flex 4-/5, knee flex/ext 4/5, ankle DF/PF 4/5) Sensation - Sensation Right Upper Extremity Sensation: Intact/Normal Left Upper Extremity Sensation: Intact/Normal Right Lower Extremity Sensation: Intact/Normal Left Lower Extremity Sensation: Intact/Normal Palpation Palpation Findings: None/Normal Balance - Sitting Balance and Reactions Static Sitting Balance: Good Dynamic Sitting Balance: Good - Standing Balance and Reactions Static Standing Balance: Fair Dynamic Standing Balance: Poor Standing Equilibrium Reactions: Delayed Left, Delayed Right Standing Protective Reactions: Delayed Left, Delayed Right Functional Mobility - Bed Mobility Rolling R/L: Independent Scooting: Independent Sit to Supine: Supervision - Transfers Sit to Stand: CGA Stand to Sit: CGA - Safety Awareness Safety Awareness: Fair KARLA INDEX SCORE: n/a Ambulation - Ambulation Assistive Device Used: Rolling Walker Orthotic/Prosthetic Device: No Distance: 60ft Assistance needed with Ambulation: CGA Gait Deviations: Forward posture, Short stride Factors Affecting Ambulation: Decreased Balance, Weakness, Decreased Safety, Limited Endurance Treatment time - Time with patient Length of Evaluation: 21 Total treatment time: 25 Patient Education - Education Patient Education: Education of diagnosis, Activity Modification, Education of Plan of Care Teaching Recipient: Patient Teaching Methods: Discussion, Demonstration Comments: discussion regarding POC as well as demonstration of safety with transfers Assessment - Assessment Problem List:: Decreased level of function, Requires training/education, Decreased safety/Risk of falls, Weakness, Pain limits previous level of function Rehab Potential: Good Further Therapy Indicated?: Yes Candidate for Swing Bed for Therapy Services?: feel may not qualify for swing bed for therapy due to high level of function Evaluation Complexity: HISTORY: Medium, EXAM OF BODY SYSTEMS: Medium, CLINICAL PRESENTATION: Medium, CLINICAL DECISION MAKING: Medium Patient's Goal(s): be able to walk better Short Term Goals GOAL #1: pt transfer sup to/from sit independently Goal to be met by: 10/24/21 GOAL #2: Sit to/from stand SBA Goal to be met by: 10/24/21 GOAL #3: pt amb 100ft with rwx CGA to SBA with no LOB Goal to be met by: 10/24/21 GOAL #4: Improve BLE strength 4 to 4+/5 Goal to be met by: 10/24/21 GOAL #5: Dynamic stand balance fair Goal to be met by: 10/24/21 Custodial Goals GOAL #1: pt amb functional household distances independently Goal to be met by: 10/26/21 GOAL #2: Ascend/descend 3 steps with HR CGA Goal to be met by: 10/26/21 GOAL #3: Sit to/from stand independently Goal to be met by: 10/26/21 Plan Plan of Care: Therapeutic EX, Therapeutic Activity Other:: gait training Frequency of Treatment: 1-2 X day, as tolerated Duration of Treatment: 5 days Anticipated Discharge Destination: Home Treatment Diagnosis (ICD 10 Codes): impaired balance R 26.81. difficulty walking R 26.2. muscle weakness M62.81 Has the Physician been added for Co-signature?: Yes
[2021-10-22] MEDS: TYLENOL PO PRN (15:53)
[2021-10-22] MEDS: PROTONIX PO SCH (16:42)
[2021-10-23] MEDS: VENTOLIN HFA (PER PUFF-WITH SPACER) IH SCH ×4 (04:30→20:15)
[2021-10-23] MEDS: ATROVENT HFA INHALER (PER PUFF-WITH SPACER) IH SCH ×4 (04:30→20:15)
[2021-10-23] MEDS: PROTONIX PO SCH ×2 (05:34→16:29)
[2021-10-23 05:35] LABS: ABG PH 7.44 (7.35-7.45)
[2021-10-23 05:35] LABS: BASOPHILS % (AUTO) 0.1 % (0.0-3.0); HEMATOCRIT 37.7 % (37.0-47.0); HEMOGLOBIN 11.8 g/dl (12.0-16.0); IMMATURE GRANULOCYTE # (AUTO) 0.1 (0.0-1.0); IMMATURE GRANULOCYTE % (AUTO) 0.7 % (0.0-5.0); LYMPHOCYTES # (AUTO) 0.8 K/uL (0.60-3.4); LYMPHOCYTES % (AUTO) 5.3 (10.0-50.0); MEAN CORPUSCULAR HEMOGLOBIN 26.8 pg (27.0-31.0); MEAN CORPUSCULAR HGB CONC 31.3 (31.8-35.4); MEAN CORPUSCULAR VOLUME 85.5 fl (81.0-99.0); MONOCYTES # (AUTO) 0.5 K/uL (0.4-2.0); MONOCYTES % (AUTO) 3.2 (0-10); NEUTROPHILS # (AUTO) 13.6 K/ul (2.0-6.9); NEUTROPHILS % (AUTO) 90.7 % (42.2-75.2); PLATELET COUNT 343 10^3/uL (140-440); RDW COEFFICIENT OF VARIATION 15.2 % (11.6-14.8); RED BLOOD COUNT 4.41 10^6/ul (4.20-5.40); WHITE BLOOD COUNT 14.96 K/ul (4.6-10.2)
[2021-10-23] MEDS: LASIX TAB PO SCH (05:35)
[2021-10-23 05:40] LABS: BEecf 5.7 (-2.0-3.0); COHb 2.2 (0.5-1.5); HCO3 29.9 (21-28)
[2021-10-23 05:41] LABS: TCO2 31.3 (19-24); sO2 88.9 % (94-98); tHb 11.8 g/dl (11.7-17.4)
[2021-10-23 05:50] LABS: ALBUMIN 3.43 g/dL (3.5-5.0); ALKALINE PHOSPHATASE 88.3 U/L (53-141); ASPARTATE AMINO TRANSFERASE 15.5 U/L (14-36); BILIRUBIN,TOTAL 0.3 mg/dL (0.2-1.3); BLOOD UREA NITROGEN 50.7 mg/dL (7-17); CALCIUM 8.94 mg/dL (8.4-10.2); CARBON DIOXIDE 29.9 mmol/L (22-30.0); CHLORIDE 102.3 mmol/L (98-107); CREATININE 1.86 mg/dL (0.60-1.30); GLUCOSE 171.3 mg/dL (74-106); POTASSIUM 4.1 mmol/L (3.5-5.1); SODIUM 138.4 mmol/L (134.5-145); TOTAL PROTEIN 6.37 g/dL (6.3-8.2)
[2021-10-23] MEDS: ROCEPHIN 1 GM VIAL 1 GM in SODIUM CHLORIDE 100ML 100 ML IV SCH (08:09)
[2021-10-23] MEDS: K-DUR PO SCH (08:13)
[2021-10-23] MEDS: CARDIZEM PO SCH ×2 (08:14→20:13)
[2021-10-23] MEDS: COREG PO SCH ×2 (08:14→16:28)
[2021-10-23] MEDS: LIBRIUM PO SCH ×2 (08:14→20:13)
[2021-10-23] MEDS: ELIQUIS PO SCH ×2 (08:15→20:10)
[2021-10-23] MEDS: DECADRON IVP SCH (08:54)
[2021-10-23] MEDS: ZITHROMAX 500 MG in SODIUM CHLORIDE 250 ML IV SCH (09:01)
--- NOTE | 2021-10-23 11:27 | DI ---
EXAM: Frontal and lateral views of the chest. HISTORY: Shortness of breath. Congestive heart failure. COMPARISON: Chest radiograph 10/21/2021. FINDINGS: Enlarged cardiac silhouette appears unchanged. Extensive calcific atherosclerosis. Mild band-like opacities at the lung bases. Emphysema. Mild blunting of the costophrenic sulci bilat erally. No pneumothorax. Multilevel spondylosis. IMPRESSION: 1. Small bilateral pleural effusions or scarring at the costophrenic sulci. 2. Emphysema. 3. Cardiomegaly. 4. Calcific atherosclerosis.
--- NOTE | 2021-10-23 15:32 | RS.OTINEVL ---
Subjective - Patient information Date of Evaluation: 10/23/21 Date of Arrival on Unit: 10/21/21 Admitted From:: Home Diagnosis: CHF, Pnuemonia, Afib PRECAUTIONS: SOA, Fall precautions Usual Living Arrangement: Alone Living Arrangement Comments: pt has homemaker 2 days a week. Home Environment: Mobile Home, Stairs (few), Rail Medical History: Hypertension, Arthritis Medical History Comments:: GERD, hernia LATEX ALLERGY?: No Medications: see chart Subjective Information/ Patient Comments:: "I live at home alone. I have help with my cleaning." - Level of function Prior to this admission, the patient could do the following:: Independent ADL's, Independent Ambulation Abilities prior to this admission: Pt had help with house cleaning. Pt is able to dress herself. Current Level of Function: Partially Dependent Current Equipment Used at Home: shower chair Pain Assessment - Pain Pain Score: 0 Interventions - Objective Patient Orientation: Person, Place Current Interventions: IV's, Oxygen Observation: Pt is weak and not always steady on her feet. Pt is improving in tolerating activity. Pt likes to do for herself. Interventions - ROM Right Upper Extremity AROM: WFL's Left Upper Extremity AROM: WFL's - Strength Right Upper Extremity Strength: Mild Weakness Left Upper Extremity Strength: Mild Weakness - Sensation Right Upper Extremity Sensation: Intact/Normal Left Upper Extremity Sensation: Intact/Normal Balance - Sitting Balance Static Sitting Balance: Good Dynamic Sitting Balance: Good - Standing Balance Static Standing Balance: Poor Dynamic Standing Balance: Poor ADL Skills - Self Feeding Self Feeding: Independent - Grooming Grooming: Min Assist Grooming Set-up: Standing - Bathing Bathing UE: Not Tested Bathing LE: Not Tested - Dressing Dressing UE: CGA Dressing LE: CGA - Toilet Management Toilet Hygiene: Independent Toilet Clothing Management: [facility] Functional Mobility - Bed Mobility Rolling R/L: Independent Scooting: Independent - Transfers Sit to Stand: [facility] Stand to Sit: [facility] Stand Pivot Transfers: CGA - Ambulation Weight Bearing Status: FWB Assistive Device Used: Rolling Walker Assistance needed with Ambulation: CGA, 1 person assist - Safety Awareness Safety Awareness: Fair KARLA INDEX SCORE: . Additional Treatment Performed - Time with patient Length of Evaluation: 25 Total treatment time: 25 Activities Do you enjoy playing games?: Yes Would you be interested in leaving your room for activities?: Yes Would you enjoy group activities?: Yes Do you have difficulty with your vision?: Yes Patient Interests:: Watching Television, Visiting/Socializing Patient Education Teaching Recipient: Patient Teaching Methods: Discussion Assessment Problem List:: Decreased level of function, Decreased safety/Risk of falls, Weakness Rehab Potential: Good Further Therapy Indicated?: Yes Evaluation Complexity: HISTORY: Medium, EXAM OF BODY SYSTEMS: Medium, CLINICAL DECISION MAKING: Medium Patient's Goal(s): To be able to go back home and care for herself. Short Term Goals - Goals GOAL 1: To be SUP for sink level ADLS. Goal to be met by: 10/25/21 GOAL 2: To increase Activity tolerance to 15 minutes with rests PRN. Goal to be met by: 10/25/21 GOAL 3: To increase dyn. std. bal. to Fair+ Goal to be met by: 10/25/21 Prison Goals GOAL 1: Pt to be (I) with sink level ADLS. Goal to be met by: 10/26/21 GOAL 2: To increase Activity tolerance to 20 minutes with rests PRN. Goal to be met by: 10/26/21 GOAL 3: To increase dyn. std. bal. to G- Goal to be met by: 10/26/21 Plan Plan of Care: Therapeutic EX, Therapeutic Activity, Self-Care/Home Management Frequency of Treatment: 1-2 X day, as tolerated Duration of Treatment: 1 Week Anticipated Discharge Destination: Home Treatment Diagnosis (ICD 10 Codes): Weakness M62.81 Has the Physician been added for Co-signature?: Yes
[2021-10-24] MEDS: VENTOLIN HFA (PER PUFF-WITH SPACER) IH SCH ×4 (04:45→19:40)
[2021-10-24] MEDS: ATROVENT HFA INHALER (PER PUFF-WITH SPACER) IH SCH ×4 (04:45→19:40)
[2021-10-24] MEDS: LASIX TAB PO SCH (05:36)
[2021-10-24] MEDS: PROTONIX PO SCH ×2 (05:36→17:19)
[2021-10-24 05:56] LABS: BASOPHILS % (AUTO) 0.1 % (0.0-3.0); HEMATOCRIT 35.9 % (37.0-47.0); HEMOGLOBIN 11.2 g/dl (12.0-16.0); IMMATURE GRANULOCYTE # (AUTO) 0.1 (0.0-1.0); IMMATURE GRANULOCYTE % (AUTO) 1.2 % (0.0-5.0); LYMPHOCYTES # (AUTO) 0.8 K/uL (0.60-3.4); LYMPHOCYTES % (AUTO) 7.1 (10.0-50.0); MEAN CORPUSCULAR HEMOGLOBIN 26.5 pg (27.0-31.0); MEAN CORPUSCULAR HGB CONC 31.2 (31.8-35.4); MEAN CORPUSCULAR VOLUME 85.1 fl (81.0-99.0); MONOCYTES # (AUTO) 0.5 K/uL (0.4-2.0); MONOCYTES % (AUTO) 4.5 (0-10); NEUTROPHILS # (AUTO) 9.8 K/ul (2.0-6.9); NEUTROPHILS % (AUTO) 87.1 % (42.2-75.2); PLATELET COUNT 306 10^3/uL (140-440); RDW COEFFICIENT OF VARIATION 15.1 % (11.6-14.8); RED BLOOD COUNT 4.22 10^6/ul (4.20-5.40); WHITE BLOOD COUNT 11.27 K/ul (4.6-10.2)
[2021-10-24 06:10] LABS: ALANINE AMINOTRANSFERASE 14.9 U/L (0-35); ALBUMIN 3.27 g/dL (3.5-5.0); ASPARTATE AMINO TRANSFERASE 17.4 U/L (14-36); BILIRUBIN,TOTAL 0.32 mg/dL (0.2-1.3); BLOOD UREA NITROGEN 53.7 mg/dL (7-17); CALCIUM 9.14 mg/dL (8.4-10.2); CARBON DIOXIDE 29.3 mmol/L (22-30.0); CHLORIDE 102.7 mmol/L (98-107); CREATININE 1.95 mg/dL (0.60-1.30); GLUCOSE 172.9 mg/dL (74-106); POTASSIUM 5.25 mmol/L (3.5-5.1); SODIUM 136.7 mmol/L (134.5-145); TOTAL PROTEIN 5.98 g/dL (6.3-8.2)
--- NOTE | 2021-10-24 08:34 | PCM.PROG ---
Attending Provider: ATTENDING PROVIDER: Dr. FABIO KAUR This patient is seen with Bouchra Wood, Nurse Practitioner. DATE OF SERVICE: 10/24/21 SUBJECTIVE: This 86 year old /WHITE F was hospitalized 10/21/21. The patient is resting comfortably still on 2 liters. Renal function and Potassium is slightly elevated. She remained in atrial fibrillation, rate is controlled. She is eating well and has been up and about with therapy. Chest x-ray yesterday was unchanged. REVIEW OF SYSTEMS: CONSTITUTIONAL: No night sweats. No fatigue, malaise, lethargy. No fever or chills. Weakness. HEENT: Eyes: No visual changes. No eye pain. No eye discharge. ENT: No runny nose. No epistaxis. No sinus pain. No odynophagia. No congestion. RESPIRATORY: No cough, no congestion. No hemoptysis. Shortness of breath. CARDIOVASCULAR: No angina symptoms. No CHF symptoms. No atypical chest pain for CAD. No palpitations. No orthopnea.. GASTROINTESTINAL: No abdominal pain. No nausea or vomiting. No diarrhea or constipation. No hematemesis. No hematochezia. GENITOURINARY: No urgency. No frequency. No dysuria. No hematuria. No obstructive symptoms. No discharge. No pain. No significant abnormal bleeding. MUSCULOSKELETAL: No musculoskeletal pain; no joint swelling. NEUROLOGICAL: Awake, alert, oriented to time, place and person. No headache. No neck pain. No syncope. No seizures. No dizziness. PSYCHIATRIC: Not anxious. No depression. No suicidal thoughts. No homicidal thoughts. SKIN: No rash. No lesions. No wounds. ENDOCRINE: No unexplained weight loss. No weight gain. HEMATOLOGIC/LYMPHATIC: No anemia. No purpura. No petechiae. No prolonged or excessive bleeding. No palpable lymph nodes. PHYSICAL EXAMINATION: GENERAL: The patient is awake, alert and oriented, lying in bed in no distress. VITAL SIGNS: Temperature 97.7 F, Pulse 80, Respiratory Rate 20, BP 148/87, Pulse Ox 91% HEENT: Head normocephalic, atraumatic. Eyes: Extraocular muscles are intact. Pupils are equal, round and reactive to light and accommodation. Ears: No lesions. Nose appeared normal. Throat: No exudate or erythema. NECK: Supple. No JVD, no carotid bruit. No lymphadenopathy or thyromegaly. LUNGS: Diminished breath sounds. Clear to auscultation. Percussion note normal. Chest symmetrical. HEART: S1, S2, no S3. No murmurs. irregular heart rate. No cyanosis or clubbing. No ascites. Pulses: Dorsalis pedis and posterior tibial pulses +1 to +2 both sides. ABDOMEN: Soft. Non-tender. Bowel sounds active. No CVA tenderness. No mass felt. EXTREMITIES: No edema. Full range of motion of all extremities, equal. NEUROLOGIC: No focal deficit. Cranial nerves II through XII are grossly intact. No headache. No double vision. SKIN: Not dry. Intact. Turgor-normal. LYMPHATIC: No palpable lymph nodes/no lymphedema. MUSCULOSKELETAL: Normal joints with no swelling. Muscle tone is normal. LAB REVIEW: 10/24/21 05:30 10/24/21 05:30 10/24/21 05:30: Sodium 136.7, Potassium 5.25 H, Chloride 102.7, Carbon Dioxide 29.3, Anion Gap 9.95, BUN 53.7 H, Creatinine 1.95 H, Estimated GFR (MDRD) 24.00, BUN/Creatinine Ratio 27.53, Glucose 172.9 H, Calcium 9.14, Total Bilirubin 0.32, AST 17.4, ALT 14.9, Alkaline Phosphatase 85.0, Total Protein 5.98 L, Albumin 3.27 L, Globulin 2.71, Albumin/Globulin Ratio 1.20 10/24/21 05:30: WBC 11.27 H, RBC 4.22, Hgb 11.2 L, Hct 35.9 L, MCV 85.1, MCH 26.5 L, MCHC 31.2 L, RDW Coeff of Sera 15.1 H, Plt Count 306, Immature Gran % (Auto) 1.2, Neut % (Auto) 87.1 H, Lymph % (Auto) 7.1 L, Bradley % (Auto) 4.5, Eos % (Auto) 0.0, Baso % (Auto) 0.1, Neut # (Auto) 9.8 H, Lymph # (Auto) 0.8, Bradley # (Auto) 0.5, Eos # (Auto) 0.0, Baso # (Auto) 0.0, Immature Gran # (Auto) 0.1 ASSESSMENT: Please see below. 1. Acute CHF 2. Acute pneumonia 3. Renal azotemia 4. Hyperkalemia 5. new onset atrial fibrillation 6. Acute respiratory failure PLAN: 1. CT chest without 2. Normal saline 50cc an hour 3. Hold Potassium today Plan and coordination of the patient's care discussed in the presence of Jhony atwood and nurse. SCRIBED BY: Melody MILESist scribed while in presence of service performed by Dr. Kaur/Bouchra Wood APRN on 10/24/21 ([id number])
[2021-10-24] MEDS: ROCEPHIN 1 GM VIAL 1 GM in SODIUM CHLORIDE 100ML 100 ML IV SCH (08:53)
[2021-10-24] MEDS: LIBRIUM PO SCH ×2 (08:53→20:16)
[2021-10-24] MEDS: COREG PO SCH ×2 (08:53→17:19)
[2021-10-24] MEDS: CARDIZEM PO SCH ×2 (08:53→20:15)
[2021-10-24] MEDS: PREDNISONE PO SCH (08:53)
[2021-10-24] MEDS: SODIUM CHLORIDE 1,000 ML IV SCH (08:54)
[2021-10-24] MEDS: ELIQUIS PO SCH ×2 (08:54→20:16)
--- NOTE | 2021-10-24 11:37 | PN ---
DATE OF SERVICE: 10/22/21 SUBJECTIVE: The patient was seen and examined with Nurse Practitioner. No CHF symptoms. Feeling better. The patient had chest pain. She was examined around 5pm and was subcostal mostly after she had eaten. No chest tightness. No sweating. No shortness of breath. It is mostly GI related. The patient will be given 2-3mg of Morphine Sulfate and given Protonix 40mg BID. EKG unchanged. Atrial fibrillation with no ST-T wave changes. Coding extensive for this day. The patient was seen and examined with the Nurse Practitioner in the morning. The patient's cardiovascular status was stable with no evidence of CHF. TIME SPENT: More than 30 minutes. Plan and coordination of the patient's care discussed in the presence of nurse. KIKO
--- NOTE | 2021-10-24 11:50 | PN ---
DATE OF SERVICE: 10/23/21 SUBJECTIVE: The patient was seen and examined by me this morning. REVIEW OF SYSTEMS: CONSTITUTIONAL: No night sweats. No fatigue, malaise, lethargy. No fever or chills. HEENT: Eyes: No visual changes. No eye pain. No eye discharge. ENT: No runny nose. No epistaxis. No sinus pain. No sore throat. No odynophagia. No congestion. RESPIRATORY: No cough, no congestion. No hemoptysis. No shortness of breath. CARDIOVASCULAR: No angina symptoms. No CHF symptoms. No atypical chest pain for CAD. No palpitations. No PND. No orthopnea. GASTROINTESTINAL: No abdominal pain. No nausea or vomiting. No diarrhea or constipation. No hematemesis. No hematochezia. GENITOURINARY: No urgency. No frequency. No dysuria. No hematuria. No obstructive symptoms. No discharge. No pain. No significant abnormal bleeding. MUSCULOSKELETAL: No musculoskeletal pain; no joint swelling. NEUROLOGICAL: No headache. No neck pain. No syncope. No seizures. No dizziness. PSYCHIATRIC: Not anxious. No depression. No suicidal thoughts. No homicidal thoughts. SKIN: No rash. No lesions. No wounds. ENDOCRINE: No unexplained weight loss. No weight gain. HEMATOLOGIC/LYMPHATIC: No anemia. No purpura. No petechiae. No prolonged or excessive bleeding. No palpable lymph nodes. PHYSICAL EXAMINATION: HEENT: Head normocephalic, atraumatic. Eyes: Extraocular muscles are intact. Pupils are equal, round and reactive to light and accommodation. Ears: No lesions. Nose appeared normal. Throat: No exudate or erythema. NECK: Supple. No JVD, no carotid bruit. No lymphadenopathy or thyromegaly. LUNGS: Clear to auscultation. Percussion note normal. Chest symmetrical. HEART: S1, S2, no S3. No murmurs. No cyanosis or clubbing. No ascites. Pulses: Dorsalis pedis and posterior tibial pulses +1 to +2 bilaterally. ABDOMEN: Soft. Nontender. Bowel sounds active. No CVA tenderness. No mass felt. EXTREMITIES: No edema. Full range of motion of all extremities, equal. NEUROLOGIC: No focal deficit. Cranial nerves II through XII are grossly intact. No headache. No double vision. SKIN: Not dry. Intact. Turgor - normal. LYMPHATIC: No palpable lymph nodes/no lymphedema. MUSCULOSKELETAL: Normal joints with no swelling. Muscle tone is normal. ASSESSMENT: 1. CHF, echo done which showed borderline LVH, enlarged LA cavity, LV contractility is near normal. PLAN: 1. Advised to continue all the medications 2. Rate goes down to 50s and upper 40s so we will decrease the dose of Coreg to 12.5mg 3. Continue Cardizem CONDITION: Stable The patient is DNR. Grandson is in the room and discussed the prognosis which is guarded. All the conditions discussed. TIME SPENT: More than 30 minutes. Plan and coordination of the patient's care discussed in the presence of nurse. KIKO
--- NOTE | 2021-10-24 11:51 | PN ---
DATE OF SERVICE: 10/24/21 SUBJECTIVE: The patient was seen and examined with the Nurse Practitioner. The patient's condition is stable. Her rate is acceptable. No CHF symptoms. No coronary insufficiency symptoms. TIME SPENT: More than 30 minutes. Plan and coordination of the patient's care discussed in the presence of nurse. KIKO
[2021-10-24] MEDS: TYLENOL PO PRN (13:58)
--- NOTE | 2021-10-24 14:58 | CT ---
EXAM: CT chest without contrast. HISTORY: Cough. Shortness of breath with exertion. COMPARISON: CT 08/30/2020. Radiograph earlier the same day. TECHNIQUE: Multiple axial images of the chest were obtained without intravenous contrast. Images we re reformatted in the sagittal and coronal planes. FINDINGS: Limited assessment for lymphadenopathy without contrast Heart enlarged. Atherosclerotic calcifications in the aorta and coronary arteries. No pericardial e ffusion. Bronchial thickening with small nodular densities in both upper lobes. Band-like consolidation in evelyn th lower lobes mainly adjacent to a large hiatal hernia although increased from prior CT. Trace amou nt of pleural fluid bilaterally. No pneumothorax. There is no acute abnormality within the upper abdomen. Degenerative changes are present in the spine. IMPRESSION: 1. Bibasilar consolidation which could represent atelectasis or pneumonia. Trace pleural effusions. 2. Upper lobe bronchial thickening and small nodular densities consistent with airways inflammation/ infection. 3. Large hiatal hernia. All CT scans are performed using dose optimization techniques as appropriate to the performed exam an d include at least one of the following: Automated exposure control, adjustment of the mA and/or kV according t o size, and the use of iterative reconstruction technique.
[2021-10-25] MEDS: ATROVENT HFA INHALER (PER PUFF-WITH SPACER) IH SCH ×4 (04:35→19:40)
[2021-10-25] MEDS: VENTOLIN HFA (PER PUFF-WITH SPACER) IH SCH ×4 (04:35→19:40)
[2021-10-25 05:34] LABS: BASOPHILS % (AUTO) 0.2 % (0.0-3.0); HEMATOCRIT 37.5 % (37.0-47.0); HEMOGLOBIN 12.1 g/dl (12.0-16.0); IMMATURE GRANULOCYTE # (AUTO) 0.2 (0.0-1.0); IMMATURE GRANULOCYTE % (AUTO) 1.7 % (0.0-5.0); LYMPHOCYTES # (AUTO) 1.4 K/uL (0.60-3.4); LYMPHOCYTES % (AUTO) 10.8 (10.0-50.0); MEAN CORPUSCULAR HEMOGLOBIN 27.1 pg (27.0-31.0); MEAN CORPUSCULAR HGB CONC 32.3 (31.8-35.4); MEAN CORPUSCULAR VOLUME 83.9 fl (81.0-99.0); MONOCYTES % (AUTO) 7.5 (0-10); NEUTROPHILS # (AUTO) 10.1 K/ul (2.0-6.9); NEUTROPHILS % (AUTO) 79.8 % (42.2-75.2); PLATELET COUNT 313 10^3/uL (140-440); RDW COEFFICIENT OF VARIATION 14.8 % (11.6-14.8); RED BLOOD COUNT 4.47 10^6/ul (4.20-5.40)
[2021-10-25] MEDS: PROTONIX PO SCH ×2 (05:39→16:28)
[2021-10-25] MEDS: LASIX TAB PO SCH (05:39)
[2021-10-25] MEDS: SODIUM CHLORIDE 1,000 ML IV SCH (05:42)
[2021-10-25 05:51] LABS: ALANINE AMINOTRANSFERASE 17.9 U/L (0-35); ALBUMIN 3.4 g/dL (3.5-5.0); ALKALINE PHOSPHATASE 86.4 U/L (53-141); ASPARTATE AMINO TRANSFERASE 18.6 U/L (14-36); BILIRUBIN,TOTAL 0.38 mg/dL (0.2-1.3); BLOOD UREA NITROGEN 47.9 mg/dL (7-17); CALCIUM 9.01 mg/dL (8.4-10.2); CARBON DIOXIDE 30.4 mmol/L (22-30.0); CHLORIDE 101.6 mmol/L (98-107); CREATININE 1.67 mg/dL (0.60-1.30); GLUCOSE 132.6 mg/dL (74-106); POTASSIUM 4.47 mmol/L (3.5-5.1); SODIUM 135.9 mmol/L (134.5-145); TOTAL PROTEIN 6.15 g/dL (6.3-8.2)
[2021-10-25] MEDS ORDERED: K-DUR PO SCH (08:30)
[2021-10-25] MEDS: LIBRIUM PO SCH ×2 (08:52→20:01)
[2021-10-25] MEDS: CARDIZEM PO SCH ×2 (08:52→20:01)
[2021-10-25] MEDS: MICRO-K CAP PO SCH (08:52)
[2021-10-25] MEDS: COREG PO SCH ×2 (08:52→16:28)
[2021-10-25] MEDS: PREDNISONE PO SCH (08:53)
[2021-10-25] MEDS: ELIQUIS PO SCH ×2 (08:53→20:02)
[2021-10-25] MEDS ORDERED: ROCEPHIN 1 GM VIAL 1 GM in SODIUM CHLORIDE 100ML 100 ML IV SCH (09:00)
[2021-10-25] MEDS: ROCEPHIN 1 GM/50 ML D5W 1 GM/50 ML BAG IV SCH (09:20)
[2021-10-25] MEDS: ROCEPHIN 1 GM VIAL 1 GM in SODIUM CHLORIDE 100ML 100 ML IV SCH (09:20)
--- NOTE | 2021-10-25 09:39 | ECHO2D ---
Date of Exam: 10/23/2021 Ordering Physician: DR. FABIO OSUNA Room #: 103 Reason for Echo: SOB, CAD M-Mode Normal Adult Results LV Dimensions Normal Adult Results AoV Opening excursions >1.6 >1.6 LVEDD-base- 3.5-5.8 4.6 Ao root dimensions 2.0-3.7 3.1 LVESD-base- 3.1-4.6 L. Atrium dimensions 1.9-3.8 4.6 Post. Wall thickness 0.8-1.1 1.2 IV septum (thickness) 0.7-1.2 1.4 Post. Wall excursion 0.72-1.3 NORMAL Septal motion NORMAL Systolic motion R. Ventricular cavity 1.5-2.0 NORMAL LVEF 60% 61% Paradoxical septal wall motion NORMAL 2-D : 2-D M Mode Echocardiogram was performed using apical four chamber and left parasternal long and short axis views. MITRAL VALVE PROLAPSE NOTED WITH APICAL AND LEFT PARASTERNAL LONG AXIS. Tricuspid and aortic valves appear to be normal. Contractility of the left ventricle seems to be normal, so is the cavity size. ENLARGED LEFT ATRIAL CAVITY SIZE. Aortic root appears to be normal. There is no pericardial effusion. There is no thrombus noted in the left ventricle or left atrial cavity. M-MODE: MV: MITRAL VALVE PROLAPSE LATE SYSTOLIC AV: NORMAL TV: NORMAL PV: CHAMBER SIZE: ENLARGED LEFT ATRIAL CAVITY WALL MOTION: NORMAL PERICARDIUM: NORMAL INTERPRETATION: 1. LEFT VENTRICLE HYPERTROPHY WITH ENLARGED LEFT CAVITY 2. 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 NORMAL LEFT VENTRICLE CONTRACTILITY MTDD
[2021-10-26] MEDS: SODIUM CHLORIDE 1,000 ML IV SCH (01:31)
[2021-10-26] MEDS: VENTOLIN HFA (PER PUFF-WITH SPACER) IH SCH ×2 (05:05→10:06)
[2021-10-26] MEDS: ATROVENT HFA INHALER (PER PUFF-WITH SPACER) IH SCH ×2 (05:05→10:07)
[2021-10-26] MEDS: PROTONIX PO SCH (05:37)
[2021-10-26] MEDS: LASIX TAB PO SCH (05:37)
[2021-10-26 05:42] VITALS: BP 156/85; TEMP 97.8
[2021-10-26 05:50] LABS: BASOPHILS # (AUTO) 0.1 K/uL (0-0.2); BASOPHILS % (AUTO) 0.4 % (0.0-3.0); EOSINOPHILS % (AUTO) 0.3 % (0.0-7.0); HEMATOCRIT 39.3 % (37.0-47.0); HEMOGLOBIN 12.5 g/dl (12.0-16.0); IMMATURE GRANULOCYTE # (AUTO) 0.4 (0.0-1.0); IMMATURE GRANULOCYTE % (AUTO) 2.6 % (0.0-5.0); LYMPHOCYTES # (AUTO) 2.9 K/uL (0.60-3.4); LYMPHOCYTES % (AUTO) 20.9 (10.0-50.0); MEAN CORPUSCULAR HEMOGLOBIN 26.5 pg (27.0-31.0); MEAN CORPUSCULAR HGB CONC 31.8 (31.8-35.4); MEAN CORPUSCULAR VOLUME 83.4 fl (81.0-99.0); MONOCYTES # (AUTO) 1.4 K/uL (0.4-2.0); MONOCYTES % (AUTO) 9.7 (0-10); NEUTROPHILS # (AUTO) 9.3 K/ul (2.0-6.9); NEUTROPHILS % (AUTO) 66.1 % (42.2-75.2); PLATELET COUNT 326 10^3/uL (140-440); RDW COEFFICIENT OF VARIATION 14.4 % (11.6-14.8); RED BLOOD COUNT 4.71 10^6/ul (4.20-5.40)
[2021-10-26 06:02] LABS: ALANINE AMINOTRANSFERASE 20.5 U/L (0-35); ALBUMIN 3.52 g/dL (3.5-5.0); ALKALINE PHOSPHATASE 88.1 U/L (53-141); ASPARTATE AMINO TRANSFERASE 18.9 U/L (14-36); BILIRUBIN,TOTAL 0.59 mg/dL (0.2-1.3); BLOOD UREA NITROGEN 46.3 mg/dL (7-17); CALCIUM 9.27 mg/dL (8.4-10.2); CARBON DIOXIDE 29.4 mmol/L (22-30.0); CHLORIDE 100.4 mmol/L (98-107); CREATININE 1.74 mg/dL (0.60-1.30); GLUCOSE 100.4 mg/dL (74-106); POTASSIUM 3.93 mmol/L (3.5-5.1); SODIUM 136.3 mmol/L (134.5-145); TOTAL PROTEIN 6.35 g/dL (6.3-8.2)
[2021-10-26] MEDS: LIBRIUM PO SCH (08:23)
[2021-10-26] MEDS: ROCEPHIN 1 GM/50 ML D5W 1 GM/50 ML BAG IV SCH (08:23)
[2021-10-26] MEDS: CARDIZEM PO SCH (08:24)
[2021-10-26] MEDS: COREG PO SCH (08:24)
[2021-10-26] MEDS: PREDNISONE PO SCH (08:25)
[2021-10-26] MEDS: ELIQUIS PO SCH (08:25)
[2021-10-26] MEDS: MICRO-K CAP PO SCH (08:25)
--- NOTE | 2021-10-30 09:42 | PN ---
DATE OF SERVICE: 10/25/21 SUBJECTIVE: 86 year old white female hospitalized with CHF. The patient had acute pulmonary edema with pneumonia. The patient was aggressively treated with IV Lasix also was given IV Lopressor. Her condition improved. Her CHF seems to have been resolving. The patient had no symptoms of CHF or coronary insufficiency. REVIEW OF SYSTEMS: CONSTITUTIONAL: No night sweats. No fatigue, malaise, lethargy. No fever or chills. HEENT: Eyes: No visual changes. No eye pain. No eye discharge. ENT: No runny nose. No epistaxis. No sinus pain. No sore throat. No odynophagia. No congestion. RESPIRATORY: No cough, no congestion. No hemoptysis. No shortness of breath. CARDIOVASCULAR: No angina symptoms. No CHF symptoms. No atypical chest pain for CAD. No palpitations. No PND. No orthopnea. GASTROINTESTINAL: No abdominal pain. No nausea or vomiting. No diarrhea or constipation. No hematemesis. No hematochezia. GENITOURINARY: No urgency. No frequency. No dysuria. No hematuria. No obstructive symptoms. No discharge. No pain. No significant abnormal bleeding. MUSCULOSKELETAL: No musculoskeletal pain; no joint swelling. NEUROLOGICAL: No headache. No neck pain. No syncope. No seizures. No dizziness. PSYCHIATRIC: Not anxious. No depression. No suicidal thoughts. No homicidal thoughts. SKIN: No rash. No lesions. No wounds. ENDOCRINE: No unexplained weight loss. No weight gain. HEMATOLOGIC/LYMPHATIC: No anemia. No purpura. No petechiae. No prolonged or excessive bleeding. No palpable lymph nodes. PHYSICAL EXAMINATION: VITAL SIGNS: Temperature 97.3, pulse 76, respiratory rate 16, blood pressure 150/70, pulse ox 93% HEENT: Head normocephalic, atraumatic. Eyes: Extraocular muscles are intact. Pupils are equal, round and reactive to light and accommodation. Ears: No lesions. Nose appeared normal. Throat: No exudate or erythema. NECK: Supple. No JVD, no carotid bruit. No lymphadenopathy or thyromegaly. LUNGS: Decreased breath sounds but clear to auscultation. Percussion note normal. Chest symmetrical. HEART: S1, S2, no S3. No murmurs. No cyanosis or clubbing. No ascites. Pulses: Dorsalis pedis and posterior tibial pulses +1 to +2 bilaterally. ABDOMEN: Soft. Nontender. Bowel sounds active. No CVA tenderness. No mass felt. EXTREMITIES: No edema. Full range of motion of all extremities, equal. NEUROLOGIC: No focal deficit. Cranial nerves II through XII are grossly intact. No headache. No double vision. SKIN: Not dry. Intact. Turgor - normal. LYMPHATIC: No palpable lymph nodes/no lymphedema. MUSCULOSKELETAL: Normal joints with no swelling. Muscle tone is normal. LABS: Hgb 12.1, hct 37, WBC 12,000 normal differential, creatinine 1.6, BUN 47, potassium 4.4 ASSESSMENT: 1. CHF, resolved 2. Hypertension, more or less well controlled 3. Arrhythmia seems to be under control with Coreg 12.5mg along with Cardizem 60mg twice a day PLAN: 1. The patient's kidney functions are stable. 2. The patient's son in the room. Explained about the findings. Explained about all the medications and her prognosis is guarded to poor. The patient's echo report discussed which showed normal LV contractility with LVH. 3. Discharge the patient home tomorrow. She is going to need some followup on Home Health Care with checking the blood pressure, pulse, physical exam of lungs, nutrition and check the oxygen saturation. TIME SPENT: More than 30 minutes. Plan and coordination of the patient's care discussed in the presence of nurse. KIKO
--- NOTE | 2021-10-30 11:22 | PN ---
DATE OF SERVICE: 10/26/21 DISCHARGE NOTE SUBJECTIVE: 86 year old white female hospitalized with CHF and possible pneumonitis. The patient has improved, pneumonitis has resolved. She is on Rocephin. CHF seems to be under control. The patient's kidney functions are stable. Her appetite has improved remarkably. The grandson is very happy with the patient's progress. REVIEW OF SYSTEMS: CONSTITUTIONAL: No night sweats. No fatigue, malaise, lethargy. No fever or chills. HEENT: Eyes: No visual changes. No eye pain. No eye discharge. ENT: No runny nose. No epistaxis. No sinus pain. No sore throat. No odynophagia. No congestion. RESPIRATORY: No cough, no congestion. No hemoptysis. No shortness of breath. CARDIOVASCULAR: No angina symptoms. No CHF symptoms. No atypical chest pain for CAD. No palpitations. No PND. No orthopnea. GASTROINTESTINAL: No abdominal pain. No nausea or vomiting. No diarrhea or constipation. No hematemesis. No hematochezia. GENITOURINARY: No urgency. No frequency. No dysuria. No hematuria. No obstructive symptoms. No discharge. No pain. No significant abnormal bleeding. MUSCULOSKELETAL: No musculoskeletal pain; no joint swelling. NEUROLOGICAL: No headache. No neck pain. No syncope. No seizures. No dizziness. PSYCHIATRIC: Not anxious. No depression. No suicidal thoughts. No homicidal thoughts. SKIN: No rash. No lesions. No wounds. ENDOCRINE: No unexplained weight loss. No weight gain. HEMATOLOGIC/LYMPHATIC: No anemia. No purpura. No petechiae. No prolonged or excessive bleeding. No palpable lymph nodes. PHYSICAL EXAMINATION: VITAL SIGNS: Temperature 97.8, pulse 87, respiratory rate 16, blood pressure this morning was 156/85 and this was taken again today in my presence was 140/82. Pulse ox 92% on room air. HEENT: Head normocephalic, atraumatic. Eyes: Extraocular muscles are intact. Pupils are equal, round and reactive to light and accommodation. Ears: No lesions. Nose appeared normal. Throat: No exudate or erythema. NECK: Supple. No JVD, no carotid bruit. No lymphadenopathy or thyromegaly. LUNGS: Clear to auscultation. Percussion note normal. Chest symmetrical. HEART: S1, S2, no S3. No murmurs. No cyanosis or clubbing. No ascites. Pulses: Dorsalis pedis and posterior tibial pulses +1 to +2 bilaterally. ABDOMEN: Soft. Nontender. Bowel sounds active. No CVA tenderness. No mass felt. EXTREMITIES: No edema. Full range of motion of all extremities, equal. NEUROLOGIC: No focal deficit. Cranial nerves II through XII are grossly intact. No headache. No double vision. SKIN: Not dry. Intact. Turgor - normal. LYMPHATIC: No palpable lymph nodes/no lymphedema. MUSCULOSKELETAL: Normal joints with no swelling. Muscle tone is normal. CONDITION: Stable. PLAN: 1. She is going to be discharged home on Keflex, Lasix, Potassium, Cardizem, Coreg 2. Amlodipine will be discontinued 3. New medication Eliquis which is blood thinner explained about side effects, intracranial bleed, GI bleed. The patient is not to take non-steroidal antiinflammatory. The patient's grandson in the room. The patient is going to be seen 8 days from now, Thursday after next at 10am. TIME SPENT: More than 30 minutes. Plan and coordination of the patient's care discussed in the presence of nurse. KIKO
--- NOTE | 2021-10-30 12:32 | DS ---
DATE OF SERVICE: 10/26/21 FINAL DIAGNOSIS: 1. Acute respiratory failure 2. Acute pulmonary edema 3. Severe hypertension on admission 4. Renal insufficiency 5. Chronic anemia 6. Atrial fibrillation with CHADS VASC score more than 4. DISCHARGE INSTRUCTIONS: Discharge home. Instruction to come back Thursday after next at 10am. Grandson to bring the patient for the office visit. Discussed all the medications with side effect in detail. The patient is to have Home Health Care and assessment for physical therapy. MEDICATIONS AT DISCHARGE: Keflex 500mg BID for 5 days Lasix 20mg PO daily K-tab 10meq PO daily Cardizem 60mg twice a day Coreg 12.5mg BID Eliquis 2.5mg BID Continue Amlodipine Aspirin Librium Protonix DIET INSTRUCTIONS: Heart Healthy, Low salt. Drink at least 64 ounces of fluids daily ACTIVITY: Up with wheeled walker and supervision. SMOKING: N/A HOSPITAL COURSE: 86 year old white female hospitalized with acute pulmonary edema, severe hypertension and pneumonitis. The patient was treated with IV Lasix. Lopressor was given. Also given Morphine Sulfate and condition improved. Her blood pressure improved. She had atrial fibrillation with rapid ventricular response which was controlled with IV Lanoxin initially. Early Cardizem IV drip was given. Her condition has improved. She has no symptoms of CHF. She was taken off of Amlodipine and put on oral Cardizem. Coreg dose was decreased because of bradyarrhythmias. The patient has been thoroughly explained along with grandson about atrial fibrillation with complications. They have agreed to have the patient on Eliquis 2.5mg twice a day. Side effects like intracranial bleed and GI bleed discussed. She is not to take non-steroidal anti-inflammatory. The patient's condition at the time of discharge is stable. Prognosis guarded. Echo showed LVH with normal LV contractility. TIME SPENT: More than 60 minutes. MTDD
--- NOTE | 2021-10-30 12:33 | PN ---
10/21/21: Level 5 10/22/21: Extensive 10/23/21: Intermediate 10/24/21: Intermediate 10/25/21: Intermediate 10/26/21: D as in discharge MTDD
== END 2021-10-26 13:40 | disposition home health service (06) | DRG 193 ==
LOC: ED 05:23 → MEDSURG A 09:32
PROVIDERS: ADMIT Internal Medicine; ATTEND Internal Medicine
DX: J18.9 Pneumonia, unspecified organism; I50.20 Unspecified systolic (congestive) heart failure; I16.1 Hypertensive emergency; D64.9 Anemia, unspecified; J81.0 Acute pulmonary edema; E11.9 Type 2 diabetes mellitus without complications; J96.01 Acute respiratory failure with hypoxia; I48.0 Paroxysmal atrial fibrillation

== ENCOUNTER 2022-01-20 07:52 | Inpatient (IN) ==
[2022-01-20 08:27] LABS: BASOPHILS # (AUTO) 0.1 K/uL (0-0.2); BASOPHILS % (AUTO) 0.6 % (0.0-3.0); BORDETELLA PARAPERTUSSIS (PCR) NOT DETECTED (NOT DETECT); BORDETELLA PERTUSSIS (PCR) NOT DETECTED (NOT DETECT); CHLAMYDIA PNEUMONIAE (PCR) NOT DETECTED (NOT DETECT); CORONAVIRUS 229E (PCR) NOT DETECTED (NOT DETECT); CORONAVIRUS HKU1 (PCR) NOT DETECTED (NOT DETECT); CORONAVIRUS NL63 (PCR) NOT DETECTED (NOT DETECT); CORONAVIRUS OC43 (PCR) NOT DETECTED (NOT DETECT); EOSINOPHILS # (AUTO) 0.2 K/ul (0.0-0.7); EOSINOPHILS % (AUTO) 1.9 % (0.0-7.0); HEMATOCRIT 43.2 % (37.0-47.0); HEMOGLOBIN 13.4 g/dl (12.0-16.0); HUMAN METAPNEUMOVIRUS (PCR) NOT DETECTED (NOT DETECT); HUMAN RHINOVIRUS/ENTEROV (PCR) NOT DETECTED (NOT DETECT); IMMATURE GRANULOCYTE % (AUTO) 0.2 % (0.0-5.0); INFLUENZA B (PCR) NOT DETECTED (NOT DETECT); LYMPHOCYTES # (AUTO) 1.7 K/uL (0.60-3.4); LYMPHOCYTES % (AUTO) 13.2 (10.0-50.0); MEAN CORPUSCULAR HEMOGLOBIN 25.6 pg (27.0-31.0); MEAN CORPUSCULAR VOLUME 82.6 fl (81.0-99.0); MONOCYTES # (AUTO) 0.8 K/uL (0.4-2.0); MONOCYTES % (AUTO) 6.5 (0-10); MYCOPLASMA PNEUMONIAE (PCR) NOT DETECTED (NOT DETECT); NEUTROPHILS # (AUTO) 9.7 K/ul (2.0-6.9); NEUTROPHILS % (AUTO) 77.6 % (42.2-75.2); PARAINFLUENZA VIRUS 1 (PCR) NOT DETECTED (NOT DETECT); PARAINFLUENZA VIRUS 2 (PCR) NOT DETECTED (NOT DETECT); PARAINFLUENZA VIRUS 3 (PCR) NOT DETECTED (NOT DETECT); PARAINFLUENZA VIRUS 4 (PCR) NOT DETECTED (NOT DETECT); PLATELET COUNT 223 10^3/uL (140-440); RDW COEFFICIENT OF VARIATION 15.7 % (11.6-14.8); RED BLOOD COUNT 5.23 10^6/ul (4.20-5.40); RESPIRATORY SYNCYTIAL V (PCR) NOT DETECTED (NOT DETECT); SARS_COV_2 (PCR) NOT DETECTED (NOT DETECT); WHITE BLOOD COUNT 12.48 K/ul (4.6-10.2)
[2022-01-20 08:30] LABS: ABG O2 HGB 90.9 % (95-100); ABG PH 7.46 (7.35-7.45); BEecf 5.4 (-2.0-3.0); COHb 1.9 (0.5-1.5); HCO3 29.2 (21-28); MetHb 1.2 (0-1.5); TCO2 30.5 (19-24); sO2 91.3 % (94-98); tHb 12.9 g/dl (11.7-17.4)
[2022-01-20 08:46] LABS: ALANINE AMINOTRANSFERASE 11.1 U/L (0-35); ALBUMIN 4.33 g/dL (3.5-5.0); ALKALINE PHOSPHATASE 141.4 U/L (53-141); BILIRUBIN,TOTAL 0.65 mg/dL (0.2-1.3); BLOOD UREA NITROGEN 21.4 mg/dL (7-17); CALCIUM 9.41 mg/dL (8.4-10.2); CARBON DIOXIDE 32.5 mmol/L (22-30.0); CHLORIDE 100.6 mmol/L (98-107); CREATININE 1.53 mg/dL (0.60-1.30); GLUCOSE 158.9 mg/dL (74-106); POTASSIUM 4.37 mmol/L (3.5-5.1); SODIUM 138.7 mmol/L (134.5-145); TOTAL PROTEIN 7.49 g/dL (6.3-8.2)
[2022-01-20 08:58] LABS: TROPONIN I 0.106 ng/ml (0.0000-0.120)
--- NOTE | 2022-01-20 09:00 | ED.PDOC ---
General ED Provider: Dr. MANUEL SAMS Chief Complaint: Respiratory Complaint Stated Complaint: Patient is an 86 year old female who lives alone, has been fully vaccinated and boosted who comes to the ER with complaints of shortness of breath that started at 3 am. She denies any chest pain. Also did have some mild nausea but is now gone. States she had pneumonia in October. Has a history of CHG and has been taking her medications as prescribed including DOAC xarelto Time Seen by Provider: 01/20/22 08:17 Mode of Arrival: Wheelchair Information Source: Patient and Family Primary Care Provider: FABIO OSUNA Nursing and Triage Documentation Reviewed and Agree: Yes Does patient meet sepsis criteria?: No System Inflammatory Response Syndrome: Not Applicable Sepsis Protocol: For patient's 13 years and over: Temp is 96.8 and below OR 101 and greater Pulse >90 BPM Resp >20/minute Acutely Altered Mental Status Are patient's symptoms suggestive of a new infection, such as: -Pneumonia -Skin, Soft Tissue -Endocarditis -UTI -Bone, Joint Infection -Implantable Device -Acute Abdominal Infection -Wound Infection -Meningitis -Blood Stream Catheter Infection -Unknown Respiratory Complaint Exam Shortness of Air Complaint/Exam Onset/Duration: today @ 3am Symptoms Are: Still present Timing: Constant Initial Severity: Moderate Current Severity: Moderate Character: Reports Dyspnea at rest Aggravating: Denies Smoke exposure Review of Systems Review Of Systems Constitutional: Reports No symptoms Eyes: Reports No symptoms Ears, Nose, Mouth, Throat: Reports No symptoms Respiratory: Reports Short of air; Denies Cough Cardiac: Denies Chest pain GI: Reports Nausea; Denies Abdominal pain, Diarrhea, Poor appetite or Vomiting : Reports No symptoms Musculoskeletal: Reports No symptoms Skin: Reports No symptoms Neurological: Reports Anxiety Endocrine: Reports No symptoms Hematologic/Lymphatic: Reports No symptoms All Other Systems: Reviewed and Negative [facility] Medical History Gallstones GERD (gastroesophageal reflux disease) Hernia Hypertension Syncope Weakness Weight loss Social History Smoking and tobacco status: Former smoker Surgical History No history of previous surgery Female Reproductive History Menstrual Hx Hysterectomy: No Hx Tubal Ligation: No Physical Exam Physical Exam Appearance: Reports Well-appearing and Thin Ill-appearing: None Pain Distress: None Eyes: Reports HERNÁN, EOMI and Conjunctiva clear ENT: Reports Ears normal, Nose normal and Oropharynx normal Neck: Supple Respiratory: Reports Airway patent and Breath sounds clear Cardiovascular: Reports RRR and Pulses normal GI/: Reports Soft, Nontender and No masses Musculoskeletal: Reports ROM intact and No edema Skin: Reports Warm, Dry and Normal color Neurological: Reports Motor intact, Alert and Oriented Psychiatric: Reports Anxious Interpretation Radiology Interpretation Radiology Interpretation By: Radiologist Radiology Results: No acute changes (Evidence of chronic lung findings with no active cardiac or pulmonary process seen.) Exam Interpreted: Portable CXR Xray Comments: cardiomegaly Physician Notification Case Discussed Physician Notified: Dr Osuna Time of Notification: 10:42 (Admit to Telemetry, Decadron 4mg IV, No IV. Full admission.) Critical Care Note Critical Care Note Total Critical Care Time (mins): 30 Course Course Hematology/Chemistry: 01/20/22 08:20 01/20/22 08:20 Orders, Labs, Meds: Lab Review 01/20/22 01/20/22 01/20/22 08:20 08:20 08:20 WBC 12.48 H RBC 5.23 Hgb 13.4 Hct 43.2 MCV 82.6 MCH 25.6 L MCHC 31.0 L RDW Coeff of Sera 15.7 H Plt Count 223 Immature Gran % (Auto) 0.2 Neut % (Auto) 77.6 H Lymph % (Auto) 13.2 Garvin % (Auto) 6.5 Eos % (Auto) 1.9 Baso % (Auto) 0.6 Neut # (Auto) 9.7 H Lymph # (Auto) 1.7 Garvin # (Auto) 0.8 Eos # (Auto) 0.2 Baso # (Auto) 0.1 Immature Gran # (Auto) 0.0 Puncture Site Base Excess O2 Saturation ABG pH ABG pCO2 ABG pO2 ABG HCO3 ABG Total CO2 Jose Test Hemoglobin Oxyhemoglobin Carboxyhemoglobin Total Hemoglobin FiO2 % Sodium 138.7 Potassium 4.37 Chloride 100.6 Carbon Dioxide 32.5 H Anion Gap 9.97 BUN 21.4 H Creatinine 1.53 H Estimated GFR (MDRD) 32.00 BUN/Creatinine Ratio 13.98 Glucose 158.9 H Calcium 9.41 Magnesium Total Bilirubin 0.65 AST 25.0 ALT 11.1 Alkaline Phosphatase 141.4 H Total Creatine Kinase 45.0 Troponin I 0.106 NT-Pro-B Natriuret Pep Total Protein 7.49 Albumin 4.33 Globulin 3.16 Albumin/Globulin Ratio 1.37 Amylase Lipase Urine Color Urine Clarity Urine pH Ur Specific [place] Urine Protein Urine Glucose (UA) Urine Ketones Urine Blood Urine Nitrite Urine Bilirubin Urine Urobilinogen Ur Leukocyte Esterase Urine Microscopic WBC Ur Squamous Epith Cells Adenovirus (PCR) Not detected B. pertussis DNA (PCR) Not detected B.parapertussis DNA PCR Not detected C. pneumoniae DNA (PCR) Not detected Coronavirus OC43 (PCR) Not detected Coronavirus HKU1 (PCR) Not detected Coronavirus 229E (PCR) Not detected Coronavirus NL63 (PCR) Not detected Human Metapneumovir PCR Not detected Influenza Type A (PCR) Not detected Influenza B (RT-PCR) Not detected M. pneumoniae (PCR) Not detected Parainfluenza 1 (PCR) Not detected Parainfluenza 2 (PCR) Not detected Parainfluenza 3 (PCR) Not detected Parainfluenza 4 (PCR) Not detected RSV (PCR) Not detected Entero/Rhino (PCR) Not detected SARS-CoV-2 (PCR) Not detected 01/20/22 01/20/22 01/20/22 08:20 08:20 08:25 WBC RBC Hgb Hct MCV MCH MCHC RDW Coeff of Sera Plt Count Immature Gran % (Auto) Neut % (Auto) Lymph % (Auto) Garvin % (Auto) Eos % (Auto) Baso % (Auto) Neut # (Auto) Lymph # (Auto) Garvin # (Auto) Eos # (Auto) Baso # (Auto) Immature Gran # (Auto) Puncture Site R rad Base Excess 5.4 H O2 Saturation 91.3 L ABG pH 7.46 H ABG pCO2 41.0 ABG pO2 58.0 L* ABG HCO3 29.2 H ABG Total CO2 30.5 H Jose Test Y Hemoglobin 1.2 Oxyhemoglobin 90.9 L Carboxyhemoglobin 1.9 H Total Hemoglobin 12.9 FiO2 % 21.0 Sodium Potassium Chloride Carbon Dioxide Anion Gap BUN Creatinine Estimated GFR (MDRD) BUN/Creatinine Ratio Glucose Calcium Magnesium 1.93 Total Bilirubin AST ALT Alkaline Phosphatase Total Creatine Kinase Troponin I NT-Pro-B Natriuret Pep 8910.000 H Total Protein Albumin Globulin Albumin/Globulin Ratio Amylase 89.7 Lipase 144.5 Urine Color Urine Clarity Urine pH Ur Specific [place] Urine Protein Urine Glucose (UA) Urine Ketones Urine Blood Urine Nitrite Urine Bilirubin Urine Urobilinogen Ur Leukocyte Esterase Urine Microscopic WBC Ur Squamous Epith Cells Adenovirus (PCR) B. pertussis DNA (PCR) B.parapertussis DNA PCR C. pneumoniae DNA (PCR) Coronavirus OC43 (PCR) Coronavirus HKU1 (PCR) Coronavirus 229E (PCR) Coronavirus NL63 (PCR) Human Metapneumovir PCR Influenza Type A (PCR) Influenza B (RT-PCR) M. pneumoniae (PCR) Parainfluenza 1 (PCR) Parainfluenza 2 (PCR) Parainfluenza 3 (PCR) Parainfluenza 4 (PCR) RSV (PCR) Entero/Rhino (PCR) SARS-CoV-2 (PCR) 01/20/22 09:30 WBC RBC Hgb Hct MCV MCH MCHC RDW Coeff of Sera Plt Count Immature Gran % (Auto) Neut % (Auto) Lymph % (Auto) Garvin % (Auto) Eos % (Auto) Baso % (Auto) Neut # (Auto) Lymph # (Auto) Garvin # (Auto) Eos # (Auto) Baso # (Auto) Immature Gran # (Auto) Puncture Site Base Excess O2 Saturation ABG pH ABG pCO2 ABG pO2 ABG HCO3 ABG Total CO2 Jose Test Hemoglobin Oxyhemoglobin Carboxyhemoglobin Total Hemoglobin FiO2 % Sodium Potassium Chloride Carbon Dioxide Anion Gap BUN Creatinine Estimated GFR (MDRD) BUN/Creatinine Ratio Glucose Calcium Magnesium Total Bilirubin AST ALT Alkaline Phosphatase Total Creatine Kinase Troponin I NT-Pro-B Natriuret Pep Total Protein Albumin Globulin Albumin/Globulin Ratio Amylase Lipase Urine Color Yellow Urine Clarity Clear Urine pH 7.0 Ur Specific [place] 1.020 Urine Protein Negative Urine Glucose (UA) Negative Urine Ketones Negative Urine Blood Negative Urine Nitrite Negative Urine Bilirubin Negative Urine Urobilinogen 0.2 Ur Leukocyte Esterase Trace H Urine Microscopic WBC 0-2 Ur Squamous Epith Cells 50-100 Adenovirus (PCR) B. pertussis DNA (PCR) B.parapertussis DNA PCR C. pneumoniae DNA (PCR) Coronavirus OC43 (PCR) Coronavirus HKU1 (PCR) Coronavirus 229E (PCR) Coronavirus NL63 (PCR) Human Metapneumovir PCR Influenza Type A (PCR) Influenza B (RT-PCR) M. pneumoniae (PCR) Parainfluenza 1 (PCR) Parainfluenza 2 (PCR) Parainfluenza 3 (PCR) Parainfluenza 4 (PCR) RSV (PCR) Entero/Rhino (PCR) SARS-CoV-2 (PCR) Orders Category Date Time Status ABG DRAW REQUEST Stat CARDIO 01/20/22 08:14 Completed EKG-(ED ONLY) Stat CARDIO 01/20/22 08:14 Completed ED TUBE MILL OPERATOR APPLIED .ONCE EMERGENCY 01/20/22 08:17 Active ED IV/MEDIPORT/POWERPORT .ONCE EMERGENCY 01/20/22 08:17 Active ABG COOX Stat LAB 01/20/22 08:25 Completed AMYLASE Stat LAB 01/20/22 08:20 Completed CBC W/ AUTO DIFF Stat LAB 01/20/22 08:20 Completed COMPREHENSIVE METABOLIC PANEL Stat LAB 01/20/22 08:20 Completed CREATINE KINASE Stat LAB 01/20/22 08:20 Completed LIPASE Stat LAB 01/20/22 08:20 Completed MAGNESIUM Stat LAB 01/20/22 08:20 Completed PRO-BNP [NT-PROBNP] Stat LAB 01/20/22 08:20 Completed RESPIRATORY PANEL 2.1 (PCR) Stat LAB 01/20/22 08:20 Completed TROPONIN I Stat LAB 01/20/22 08:20 Completed URINALYSIS C & S IF INDICATED Stat LAB 01/20/22 09:30 Completed 0.9 % Sodium Chloride [Saline Flush] MEDS 01/20/22 08:17 Active 1 syr IVF PRN PRN Furosemide [Lasix] MEDS 01/20/22 09:13 Discontinued 20 mg IVP ONCE ONE Ondansetron HCl/Pf [Zofran 4 mg/2 ml] MEDS 01/20/22 10:32 Stat 4 mg IVP ONCE STA CHEST, 1V AP ONLY Stat RADS 01/20/22 08:[address] ABDOMEN/PELVIS WO CONTRAST Stat RADS 01/20/22 10:32 Ordered Medications Generic Name Dose Route Start Last Admin Trade Name Freq PRN Reason Stop Dose Admin Ondansetron HCl 4 mg 01/20/22 10:32 Ondansetron Hcl/Pf 4 Mg/2 Ml Sdv IVP 01/20/22 10:33 ONCE STA Sodium Chloride 1 syr 01/20/22 08:17 01/20/22 09:23 0.9% Sodium Chloride 10 Ml Disp.Syrin IVF 1 syr PRN PRN Administration To flush IV Discontinued Medications Generic Name Dose Route Start Last Admin Trade Name Freq PRN Reason Stop Dose Admin Furosemide 20 mg 01/20/22 09:13 01/20/22 09:22 Furosemide Inj 20 Mg/2 Ml Vial IVP 01/20/22 09:14 20 mg ONCE ONE Administration Vital Signs: Temp Pulse Resp BP Pulse Ox 01/20/22 07:56 98.8 F 111 H 18 203/108 H 92 L Discharge Plan Discharge Patient Disposition: ADMITTED INPATIENT Discharge Problem: CHF (congestive heart failure), Nausea & vomiting ED Provider: MANUEL SAMS Condition: Fair Physician Progress Note: []
[2022-01-20 09:03] LABS: AMYLASE 89.7 U/L (30-110); LIPASE 144.5 U/L (23-300); MAGNESIUM 1.93 mg/dL (1.6-2.3)
--- NOTE | 2022-01-20 09:07 | DI ---
EXAM: Chest one view. HISTORY: Short of breath COMPARISON: 10/23/2021 chest x-ray FINDINGS: Heart and pulmonary vascularity within normal limits. The lungs are satisfactory inflated with no active pulmonary infiltrate seen. Chronic appearing increased interstitial lung markings. Granulomatous calcifications are seen. Large hiatal hernia. Healed right rib fractures. IMPRESSION: Evidence of chronic lung findings with no active cardiac or pulmonary process seen.
[2022-01-20] MEDS ORDERED: LASIX IVP ONE (09:13)
[2022-01-20 09:15] LABS: ADENOVIRUS (PCR) NOT DETECTED (NOT DETECT)
[2022-01-20 09:44] LABS: BILIRUBIN,URINE Negative (NEGATIVE); CLARITY,URINE Clear (CLEAR); COLOR,URINE Yellow (YELLOW); GLUCOSE, URINE (UA) Negative (NEGATIVE); KETONES,URINE Negative (NEGATIVE); LEUKOCYTE ESTERASE ,URINE Trace (NEGATIVE); NITRITE,URINE Negative (NEGATIVE); PROTEIN,URINE Negative (NEGATIVE); URINE, BLOOD Negative (NEGATIVE); UROBILINOGEN,URINE 0.2 (0.2)
[2022-01-20 09:50] LABS: URINE WBC, MICROSCOPIC 0-2 (0-2)
[2022-01-20 09:51] LABS: SQUAMOUS EPITHELIAL CELL,UR 50-100 (0-5)
[2022-01-20] MEDS ORDERED: ZOFRAN 4 MG/2 ML IVP STA (10:32)
[2022-01-20] MEDS ORDERED: DECADRON IVP STA (10:36)
[2022-01-20] MEDS ORDERED: DUONEB NEB PRN (10:37)
[2022-01-20] MEDS ORDERED: TYLENOL PO PRN (10:37)
[2022-01-20] MEDS ORDERED: NITROSTAT SL PRN (10:43)
[2022-01-20 11:30] VITALS: BMI 18.2
--- NOTE | 2022-01-20 11:40 | CT ---
EXAM: CT ABDOMEN AND PELVIS HISTORY: Abdominal pain, nausea and vomiting TECHNIQUE: CT abdomen and pelvis without intravenous contrast. Images were reconstructed using 5 mm section thickness. Reformations were prepared. COMPARISON: 12/31/2020 FINDINGS: Diagnostic limitations exist without including intravenous contrast enhanced images. Motion artifact degrades image quality. Liver, spleen, gallbladder, pancreas and adrenal glands are within normal l imits. No hydronephrosis. Vascular calcifications are present consistent with moderately severe padmini betic angiopathy and / or atherosclerotic disease. The stomach is nearly entirely supradiaphragmatic (essentially type 4 paraesophageal hernia). No gross gastric volvulus or obstruction. Diverticulos is of the colon becomes at least moderate at the sigmoid level. No diverticular inflammation is seen . There is no bowel obstruction. No evidence of active enterocolitis. Urinary bladder and uterus a re unremarkable. No ascites. There is no abdominal wall hernia. The bones reveal degenerative son ges of the spine with mild scoliosis. There are trace bilateral pleural effusions new since previous exam. No pneumoperitoneum is seen. IMPRESSION: 1. The stomach is nearly entirely supradiaphragmatic (essentially type 4 paraesophageal hernia). No gross gastric volvulus or obstruction. 2. Diverticulosis of the colon becomes at least moderate at the sigmoid level. No diverticular infl ammation is seen. 3. There is no bowel obstruction. No evidence of active enterocolitis. 4. There are trace bilateral pleural effusions new since previous exam. - - - - - All CT scans are performed using dose optimization techniques as appropriate to the performed exam an d include at least one of the following: Automated exposure control, adjustment of the mA and/or kV according t o size, and the use of iterative reconstruction technique.
[2022-01-20] MEDS: XARELTO PO SCH (12:25)
[2022-01-20] MEDS: PROTONIX IV IVP SCH (12:25)
[2022-01-20] MEDS: COREG PO SCH (16:57)
[2022-01-20 17:13] LABS: CREATINE KINASE 44.6 U/L (30-135)
[2022-01-20 17:54] LABS: TROPONIN I 0.843 ng/ml (0.0000-0.120)
[2022-01-20] MEDS ORDERED: ATROPINE SULFATE PFS IVP PRN (18:14)
[2022-01-20] MEDS: PEPCID PO SCH (20:36)
[2022-01-20] MEDS: CARDIZEM PO SCH (20:36)
[2022-01-21 05:29] LABS: BASOPHILS % (AUTO) 0.2 % (0.0-3.0); HEMATOCRIT 38.6 % (37.0-47.0); HEMOGLOBIN 11.8 g/dl (12.0-16.0); IMMATURE GRANULOCYTE % (AUTO) 0.4 % (0.0-5.0); LYMPHOCYTES # (AUTO) 1.1 K/uL (0.60-3.4); LYMPHOCYTES % (AUTO) 19.6 (10.0-50.0); MEAN CORPUSCULAR HEMOGLOBIN 25.5 pg (27.0-31.0); MEAN CORPUSCULAR HGB CONC 30.6 (31.8-35.4); MEAN CORPUSCULAR VOLUME 83.5 fl (81.0-99.0); MONOCYTES # (AUTO) 0.5 K/uL (0.4-2.0); MONOCYTES % (AUTO) 8.8 (0-10); NEUTROPHILS # (AUTO) 3.8 K/ul (2.0-6.9); PLATELET COUNT 179 10^3/uL (140-440); RDW COEFFICIENT OF VARIATION 15.7 % (11.6-14.8); RED BLOOD COUNT 4.62 10^6/ul (4.20-5.40); WHITE BLOOD COUNT 5.37 K/ul (4.6-10.2)
[2022-01-21 05:49] LABS: ALANINE AMINOTRANSFERASE 12.6 U/L (0-35); ALBUMIN 3.79 g/dL (3.5-5.0); ALKALINE PHOSPHATASE 104.6 U/L (53-141); ASPARTATE AMINO TRANSFERASE 21.7 U/L (14-36); BILIRUBIN,TOTAL 0.33 mg/dL (0.2-1.3); BLOOD UREA NITROGEN 33.7 mg/dL (7-17); CALCIUM 8.83 mg/dL (8.4-10.2); CARBON DIOXIDE 32.4 mmol/L (22-30.0); CHLORIDE 99.7 mmol/L (98-107); CREATINE KINASE 38.7 U/L (30-135); CREATININE 2.22 mg/dL (0.60-1.30); GLUCOSE 147.1 mg/dL (74-106); POTASSIUM 4.52 mmol/L (3.5-5.1); TOTAL PROTEIN 6.54 g/dL (6.3-8.2)
[2022-01-21 06:13] LABS: TROPONIN I 0.685 ng/ml (0.0000-0.120)
[2022-01-21] MEDS ORDERED: LASIX IVP SCH (06:30)
[2022-01-21] MEDS ORDERED: DECADRON IVP SCH (09:00)
[2022-01-21] MEDS ORDERED: NON-FORMULARY MEDICATION (Multivitamin Tablet) PO SCH (09:00)
--- NOTE | 2022-01-21 09:07 | PCM.PROG ---
Attending Provider: ATTENDING PROVIDER: Dr. FABIO OSUNA DATE OF SERVICE: 01/21/22 SUBJECTIVE: This 86 year old /WHITE F was hospitalized 01/20/22 with acute respiratory failure and acute pulmonary edema. The patient had severe hypertension in the ER. All acute medical problems have subsided. REVIEW OF SYSTEMS: CONSTITUTIONAL: No night sweats. No fatigue, malaise, lethargy. No fever or chills. HEENT: Eyes: No visual changes. No eye pain. No eye discharge. ENT: No runny nose. No epistaxis. No sinus pain. No odynophagia. No congestion. RESPIRATORY: No cough, no congestion. No hemoptysis. No shortness of breath. CARDIOVASCULAR: No angina symptoms. No CHF symptoms. No atypical chest pain for CAD. No palpitations. No orthopnea.. GASTROINTESTINAL: No abdominal pain. No nausea or vomiting. No diarrhea or constipation. No hematemesis. No hematochezia. Appetite improved. GENITOURINARY: No urgency. No frequency. No dysuria. No hematuria. No obstructive symptoms. No discharge. No pain. No significant abnormal bleeding. MUSCULOSKELETAL: No musculoskeletal pain; no joint swelling. NEUROLOGICAL: Awake, alert, oriented to time, place and person. No headache. No neck pain. No syncope. No seizures. No dizziness. PSYCHIATRIC: Not anxious. No depression. No suicidal thoughts. No homicidal thoughts. SKIN: No rash. No lesions. No wounds. ENDOCRINE: No unexplained weight loss. No weight gain. HEMATOLOGIC/LYMPHATIC: No anemia. No purpura. No petechiae. No prolonged or excessive bleeding. No palpable lymph nodes. PHYSICAL EXAMINATION: GENERAL: The patient is awake, alert and oriented, lying in bed in no distress. VITAL SIGNS: Temperature 97.4 F, Pulse 80, Respiratory Rate 18, BP 118/70, Pulse Ox 95% HEENT: Head normocephalic, atraumatic. Eyes: Extraocular muscles are intact. Pupils are equal, round and reactive to light and accommodation. Ears: No lesions. Nose appeared normal. Throat: No exudate or erythema. NECK: Supple. No JVD, no carotid bruit. No lymphadenopathy or thyromegaly. LUNGS: Few crepitations at bases. Good air entry. Clear to auscultation. Percussion note normal. Chest symmetrical. HEART: S1, S2, no S3. No murmurs. No cyanosis or clubbing. No ascites. Pulses: Dorsalis pedis and posterior tibial pulses +1 to +2 both sides. ABDOMEN: Soft. Non-tender. Bowel sounds active. No CVA tenderness. No mass felt. EXTREMITIES: No edema. Full range of motion of all extremities, equal. NEUROLOGIC: No focal deficit. Cranial nerves II through XII are grossly intact. No headache, no double vision or headache. SKIN: Warm and dry. Intact. Turgor-normal. LYMPHATIC: No palpable lymph nodes/no lymphedema. MUSCULOSKELETAL: Normal joints with no swelling. Muscle tone is normal. LAB REVIEW: 01/21/22 05:05 01/21/22 05:05 01/21/22 05:05: Sodium 138.0, Potassium 4.52, Chloride 99.7, Carbon Dioxide 32.4 H, Anion Gap 10.42, BUN 33.7 H, Creatinine 2.22 H D, Estimated GFR (MDRD) 21.00, BUN/Creatinine Ratio 15.18, Glucose 147.1 H, Calcium 8.83, Total Bilirubin 0.33, AST 21.7, ALT 12.6, Alkaline Phosphatase 104.6 D, Total Creatine Kinase 38.7, Troponin I 0.685 H*, Total Protein 6.54, Albumin 3.79, Globulin 2.75, Albumin/Globulin Ratio 1.37 01/21/22 05:05: WBC 5.37 D, RBC 4.62, Hgb 11.8 L, Hct 38.6, MCV 83.5, MCH 25.5 L, MCHC 30.6 L, RDW Coeff of Sera 15.7 H, Plt Count 179, Immature Gran % (Auto) 0.4, Neut % (Auto) 71.0, Lymph % (Auto) 19.6, Stanton % (Auto) 8.8, Eos % (Auto) 0.0, Baso % (Auto) 0.2, Neut # (Auto) 3.8, Lymph # (Auto) 1.1, Stanton # (Auto) 0.5, Eos # (Auto) 0.0, Baso # (Auto) 0.0, Immature Gran # (Auto) 0.0 01/20/22 16:56: Total Creatine Kinase 44.6, Troponin I 0.843 H* 01/20/22 09:30: Urine Color Yellow, Urine Clarity Clear, Urine pH 7.0, Ur Specific [place] 1.020, Urine Protein Negative, Urine Glucose (UA) Negative, Urine Ketones Negative, Urine Blood Negative, Urine Nitrite Negative, Urine Bilirubin Negative, Urine Urobilinogen 0.2, Ur Leukocyte Esterase Trace H, Urine Microscopic WBC 0-2, Ur Squamous Epith Cells 50-100 01/20/22 08:25: Puncture Site R rad, Base Excess 5.4 H, O2 Saturation 91.3 L, ABG pH 7.46 H, ABG pCO2 41.0, ABG pO2 58.0 L*, ABG HCO3 29.2 H, ABG Total CO2 30.5 H, Jose Test Y, Hemoglobin 1.2, Oxyhemoglobin 90.9 L, Carboxyhemoglobin 1.9 H, Total Hemoglobin 12.9, FiO2 % 21.0 01/20/22 08:20: NT-Pro-B Natriuret Pep 8910.000 H 01/20/22 08:20: Magnesium 1.93, Amylase 89.7, Lipase 144.5 01/20/22 08:20: Adenovirus (PCR) Not detected, B. pertussis DNA (PCR) Not detected, B.parapertussis DNA PCR Not detected, C. pneumoniae DNA (PCR) Not detected, Coronavirus OC43 (PCR) Not detected, Coronavirus HKU1 (PCR) Not d etected, Coronavirus 229E (PCR) Not detected, Coronavirus NL63 (PCR) Not detected, Human Metapneumovir PCR Not detected, Influenza Type A (PCR) Not detected, Influenza B (RT-PCR) Not detected, M. pneumoniae (PCR) Not detected, Parainfluenza 1 (PCR) Not detected, Parainfluenza 2 (PCR) Not detected, P arainfluenza 3 (PCR) Not detected, Parainfluenza 4 (PCR) Not detected, RSV (PCR) Not detected, Entero/Rhino (PCR) Not detected, SARS-CoV-2 (PCR) Not detected 01/20/22 08:20: Sodium 138.7, Potassium 4.37, Chloride 100.6, Carbon Dioxide 32.5 H, Anion Gap 9.97, BUN 21.4 H, Creatinine 1.53 H, Estimated GFR (MDRD) 32.00, BUN/Creatinine Ratio 13.98, Glucose 158.9 H, Calcium 9.41, Total Bilirubin 0.65, AST 25.0, ALT 11.1, Alkaline Phosphatase 141.4 H, Total Creatine Kinase 45.0, Troponin I 0.106, Total Protein 7.49, Albumin 4.33, Globulin 3.16, Albumin/Globulin Ratio 1.37 01/20/22 08:20: WBC 12.48 H, RBC 5.23, Hgb 13.4, Hct 43.2, MCV 82.6, MCH 25.6 L, MCHC 31.0 L, RDW Coeff of Sera 15.7 H, Plt Count 223, Immature Gran % (Auto) 0.2, Neut % (Auto) 77.6 H, Lymph % (Auto) 13.2, Stanton % (Auto) 6.5, Eos % (Auto) 1.9, Baso % (Auto) 0.6, Neut # (Auto) 9.7 H, Lymph # (Auto) 1.7, Stanton # (Auto) 0.8, Eos # (Auto) 0.2, Baso # (Auto) 0.1, Immature Gran # (Auto) 0.0 ASSESSMENT: Please see below. 1. Pulmonary edema, resolved 2. CHF under control 3. Hypertension, resolved 4. CKD creatinine 2.2 we will check previous creatinine and BUN PLAN: 1. Discontinue IV Lasix, give PO Lasix 2. Cause of her acute pulmonary edema could be from noncompliance of m edications. The patient is a DNR. Plan and coordination of the patient's care discussed in the presence of Engraving Supervisor and nurse. CONDITION: Stable. SCRIBED BY: Abbi MILES scribed while in presence of service performed by Dr. FABIO OSUNA on 01/21/22 ([id number])
[2022-01-21] MEDS: CARDIZEM PO SCH ×2 (09:11→20:40)
[2022-01-21] MEDS: MICRO-K CAP PO SCH (09:12)
[2022-01-21] MEDS: XARELTO PO SCH (09:12)
[2022-01-21] MEDS: COREG PO SCH ×2 (09:14→16:26)
[2022-01-21] MEDS: PROTONIX IV IVP SCH (09:15)
[2022-01-21] MEDS: DECADRON IVP SCH (09:15)
[2022-01-21] MEDS: MULTIVITAMIN TABLET PO SCH (09:16)
[2022-01-21] MEDS: NON-FORMULARY MEDICATION (Cinnamon Bark [Cinnamon] 500 mg Capsule) PO SCH (09:17)
[2022-01-21] MEDS: NON-FORMULARY MEDICATION (Vit A-Vit C-Vit E-Zinc-Copper 7,160-113-100 unit-mg-unit Tablet) PO SCH (09:18)
[2022-01-21 09:42] LABS: ABG O2 HGB 94.6 % (95-100); ABG PH 7.35 (7.35-7.45); BEecf 2.6 (-2.0-3.0); HCO3 28.2 (21-28); MetHb 1.1 (0-1.5); TCO2 29.8 (19-24); sO2 94.7 % (94-98); tHb 12.2 g/dl (11.7-17.4)
--- NOTE | 2022-01-21 10:57 | HP ---
DATE OF SERVICE: 01/20/22 REASON FOR HOSPITALIZATION: Respiratory distress. HISTORY OF PRESENT ILLNESS: 86 year old white female got up complaining of shortness of breath, started at 3:00 in the morning. The patient in the emergency room was in respiratory distress with severe hypertension, pulmonary edema. The patient's pulse was 111 per minute with respiratory rate of 20 and blood pressure of 203/108, saturation was 92%. PAST MEDICAL HISTORY: Recurrent UTI Right nephrolithiasis History of GI blood loss Diabetes mellitus Hypertension Chronic kidney disease Ejection fraction 45% last 2019. Falls Dyslipidemia Paraesophageal hernia PAST SURGICAL HISTORY: Status post cholecystectomy Status post hiatal hernia REVIEW OF SYSTEMS: CONSTITUTIONAL: No night sweats. Fatigue and weakness. No fever or chills. HEENT: Eyes: No visual changes. No eye pain. No eye discharge. ENT: No runny nose. No epistaxis. No sinus pain. No sore throat. No odynophagia. No ear pain. No congestion. RESPIRATORY: No cough, no congestion. No hemoptysis. Shortness of breath. CARDIOVASCULAR: No angina symptoms. No CHF symptoms. No atypical chest pain for CAD. No palpitations. PND. Orthopnea. GASTROINTESTINAL: No abdominal pain. No nausea or vomiting. No diarrhea or constipation. No hematemesis. No hematochezia. GENITOURINARY: No urgency. No frequency. No dysuria. No hematuria. No obstructive symptoms. No discharge. No pain. No significant abnormal bleeding. MUSCULOSKELETAL: No musculoskeletal pain. No joint swelling. No arthritis. NEUROLOGICAL: No headache. No neck pain. No syncope. No seizures. No dizziness. PSYCHIATRIC: Not anxious. No depression. No suicidal thoughts. No homicidal thoughts. SKIN: No rash. No lesions. No wounds. ENDOCRINE: No unexplained weight loss. No weight gain. HEMATOLOGIC/LYMPHATIC: No anemia. No purpura. No petechiae. No prolonged or excessive bleeding. No palpable lymph nodes. PERSONAL/FAMILY/SOCIAL HISTORY: The patient is and lives with the son. Nonsmoker, No alcohol abuse. MEDICATIONS: Xarelto Lasix Diltazem Carvedilol Pantoprazole Librium Potassium Pepcid PHYSICAL EXAMINATION: GENERAL: The patient is oriented to time, place and person. VITAL SIGNS: Temperature 98.8, pulse 111, respiratory rate 18, blood pressure 203/108 and pulse 92% on room air. HEENT: Head normocephalic, atraumatic. Eyes: Extraocular muscles are intact. Pupils are equal, round and reactive to light and accommodation. Ears: No lesions. Nose appeared normal. Throat: No exudate or erythema. NECK: Supple. No JVD, no carotid bruit. No lymphadenopathy or thyromegaly. LUNGS: Decreased breath sounds. Wheeze bilaterally. Clear to auscultation. Percussion note normal. Chest symmetrical. HEART: S1, S2, tachycardia. No murmur. No cyanosis or clubbing. No ascites. Pulses: Dorsalis pedis and posterior tibial pulses +1 to +2 bilaterally. ABDOMEN: Soft. Distended. Nontender. Bowel sounds active. No CVA tenderness. No mass felt. EXTREMITIES: No edema. Full range of motion of all extremities, equal. NEUROLOGIC: No focal deficit. Cranial nerves II through XII are grossly intact. No headache, no double vision or headache. SKIN: Not dry. Intact. Turgor - normal. LYMPHATIC: No palpable lymph nodes/no lymphedema. MUSCULOSKELETAL: Normal joints with no swelling. Muscle tone is normal. LABS: Chest x-ray showed pleural effusions. Hgb 13, hct 43, WBC 12,000 normal differential, creatinine 1.5, BUN 21, potassium 4.3. ABG pO2 58, pCo2 41, pH 7.46 with 91% saturation on room air. PROBNP was 8,910. Lipase and Amylase normal. CT scan hiatal hernia mostly in the thoracic cavity. No acute findings, CT of abdomen. ASSESSMENT: 1. Acute pulmonary edema 2. Severe hypertension 3. History of atrial fibrillation 4. History of acute respiratory failure 5. Acute pulmonary edema 11/02 6. Nephrolithiasis 7. Recurrent UTI 8. Carotid stenosis 50-70% 9. History of GI bleed 10.Dyslipidemia 11.History of falls 12.Mitral valve prolapse 13. Kyphosis 14.Status post cholecystectomy 15.Large hiatal hernia PLAN: 1. Lasix 20mg daily 2. Continue the rest of the medications 3. CBC and CMP 4. Telemetry 5. Oxygen supplements 6. IV Dexamethasone 4mg The patient was checked this after, the patient is feeling a lot better. Eating normally. Her respiration had slowed down, the lungs had good air entry. Oxygen saturation 96% on 2 liters. CONDITION: Stable. TIME SPENT: More than 70 minutes. MTDD
[2022-01-21] MEDS: PEPCID PO SCH (20:40)
[2022-01-22] MEDS: LASIX TAB PO SCH (05:41)
[2022-01-22 05:47] LABS: BASOPHILS % (AUTO) 0.1 % (0.0-3.0); HEMATOCRIT 36.1 % (37.0-47.0); HEMOGLOBIN 11.2 g/dl (12.0-16.0); IMMATURE GRANULOCYTE % (AUTO) 0.2 % (0.0-5.0); LYMPHOCYTES % (AUTO) 11.7 (10.0-50.0); MEAN CORPUSCULAR HEMOGLOBIN 25.6 pg (27.0-31.0); MEAN CORPUSCULAR VOLUME 82.6 fl (81.0-99.0); MONOCYTES # (AUTO) 0.3 K/uL (0.4-2.0); MONOCYTES % (AUTO) 3.9 (0-10); NEUTROPHILS # (AUTO) 6.8 K/ul (2.0-6.9); NEUTROPHILS % (AUTO) 84.1 % (42.2-75.2); PLATELET COUNT 193 10^3/uL (140-440); RDW COEFFICIENT OF VARIATION 15.6 % (11.6-14.8); RED BLOOD COUNT 4.37 10^6/ul (4.20-5.40); WHITE BLOOD COUNT 8.12 K/ul (4.6-10.2)
[2022-01-22 06:14] LABS: ALANINE AMINOTRANSFERASE 14.3 U/L (0-35); ALBUMIN 3.54 g/dL (3.5-5.0); ALKALINE PHOSPHATASE 92.8 U/L (53-141); BILIRUBIN,TOTAL 0.28 mg/dL (0.2-1.3); BLOOD UREA NITROGEN 54.5 mg/dL (7-17); CALCIUM 8.35 mg/dL (8.4-10.2); CARBON DIOXIDE 29.7 mmol/L (22-30.0); CHLORIDE 99.5 mmol/L (98-107); CREATININE 2.54 mg/dL (0.60-1.30); GLUCOSE 144.9 mg/dL (74-106); POTASSIUM 5.02 mmol/L (3.5-5.1); TOTAL PROTEIN 6.18 g/dL (6.3-8.2)
[2022-01-22] MEDS: MICRO-K CAP PO SCH (08:34)
[2022-01-22] MEDS: XARELTO PO SCH (08:34)
[2022-01-22] MEDS: MULTIVITAMIN TABLET PO SCH (08:34)
[2022-01-22] MEDS: PROTONIX IV IVP SCH (08:35)
[2022-01-22] MEDS: CARDIZEM PO SCH ×2 (08:35→22:28)
[2022-01-22] MEDS: COREG PO SCH (08:35)
[2022-01-22] MEDS: DECADRON IVP SCH (08:35)
[2022-01-22] MEDS: NON-FORMULARY MEDICATION (Cinnamon Bark [Cinnamon] 500 mg Capsule) PO SCH (09:01)
[2022-01-22] MEDS: NON-FORMULARY MEDICATION (Vit A-Vit C-Vit E-Zinc-Copper 7,160-113-100 unit-mg-unit Tablet) PO SCH (09:02)
[2022-01-22] MEDS ORDERED: ATROPINE SULFATE PFS IVP STA (10:55)
[2022-01-22] MEDS ORDERED: DOPAMINE 400 MG/250 ML D5W 400 MG/250 ML BAG IV ONE (11:22)
[2022-01-22] MEDS: DOPAMINE 400 MG/250 ML D5W 400 MG/250 ML BAG IV SCH ×2 (11:32→22:21)
[2022-01-22] MEDS ORDERED: MORPHINE 4 MG/ML SYRINGE IVP PRN ×2 (12:26→12:35)
[2022-01-22] MEDS ORDERED: MORPHINE 2 MG/ML VIAL IVP PRN (12:35)
[2022-01-22] MEDS: ZOFRAN 4 MG/2 ML IVP PRN (12:45)
[2022-01-22] MEDS: PEPCID PO SCH (22:37)
[2022-01-23 05:41] LABS: BASOPHILS % (AUTO) 0.1 % (0.0-3.0); HEMATOCRIT 39.2 % (37.0-47.0); IMMATURE GRANULOCYTE # (AUTO) 0.1 (0.0-1.0); IMMATURE GRANULOCYTE % (AUTO) 0.8 % (0.0-5.0); LYMPHOCYTES # (AUTO) 0.9 K/uL (0.60-3.4); LYMPHOCYTES % (AUTO) 5.4 (10.0-50.0); MEAN CORPUSCULAR HEMOGLOBIN 25.3 pg (27.0-31.0); MEAN CORPUSCULAR HGB CONC 30.6 (31.8-35.4); MEAN CORPUSCULAR VOLUME 82.5 fl (81.0-99.0); MONOCYTES # (AUTO) 0.7 K/uL (0.4-2.0); MONOCYTES % (AUTO) 4.1 (0-10); NEUTROPHILS % (AUTO) 89.6 % (42.2-75.2); PLATELET COUNT 229 10^3/uL (140-440); RDW COEFFICIENT OF VARIATION 14.9 % (11.6-14.8); RED BLOOD COUNT 4.75 10^6/ul (4.20-5.40); WHITE BLOOD COUNT 16.78 K/ul (4.6-10.2)
[2022-01-23] MEDS: LASIX TAB PO SCH (05:55)
[2022-01-23 06:06] LABS: CREATINE KINASE 121.9 U/L (30-135)
[2022-01-23 06:07] LABS: ALANINE AMINOTRANSFERASE 575.9 U/L (0-35); ALBUMIN 3.92 g/dL (3.5-5.0); ALKALINE PHOSPHATASE 112.2 U/L (53-141); BILIRUBIN,TOTAL 0.38 mg/dL (0.2-1.3); CALCIUM 8.01 mg/dL (8.4-10.2); CARBON DIOXIDE 28.9 mmol/L (22-30.0); CHLORIDE 94.8 mmol/L (98-107); CREATININE 3.47 mg/dL (0.60-1.30); GLUCOSE 169.1 mg/dL (74-106); POTASSIUM 5.78 mmol/L (3.5-5.1); SODIUM 134.3 mmol/L (134.5-145); TOTAL PROTEIN 6.6 g/dL (6.3-8.2)
[2022-01-23 06:09] LABS: BLOOD UREA NITROGEN 71.5 mg/dL (7-17)
[2022-01-23 06:21] LABS: CREATINE KINASE MB 3.97 ng/ml (0.0-2.38)
[2022-01-23] MEDS: ZOFRAN 4 MG/2 ML IVP PRN (09:26)
[2022-01-23] MEDS: XARELTO PO SCH (09:26)
[2022-01-23] MEDS: PROTONIX IV IVP SCH (09:26)
[2022-01-23] MEDS: DECADRON IVP SCH (09:27)
[2022-01-23] MEDS: MULTIVITAMIN TABLET PO SCH (09:27)
[2022-01-23] MEDS: NON-FORMULARY MEDICATION (Cinnamon Bark [Cinnamon] 500 mg Capsule) PO SCH (09:28)
[2022-01-23] MEDS: COREG PO SCH ×2 (09:28→09:29)
[2022-01-23] MEDS: NON-FORMULARY MEDICATION (Vit A-Vit C-Vit E-Zinc-Copper 7,160-113-100 unit-mg-unit Tablet) PO SCH (09:29)
[2022-01-23] MEDS ORDERED: KAYEXALATE SUSP PO ONE (10:00)
[2022-01-23] MEDS: DEXTROSE 5%-1/2NS IV SOLUTION 1,000 ML IV SCH ×3 (10:43→21:27)
[2022-01-23] MEDS: PEPCID PO SCH (20:31)
[2022-01-24] MEDS: LASIX TAB PO SCH (05:40)
[2022-01-24 05:51] LABS: BASOPHILS % (AUTO) 0.1 % (0.0-3.0); HEMATOCRIT 36.5 % (37.0-47.0); HEMOGLOBIN 11.4 g/dl (12.0-16.0); IMMATURE GRANULOCYTE # (AUTO) 0.1 (0.0-1.0); IMMATURE GRANULOCYTE % (AUTO) 1.2 % (0.0-5.0); LYMPHOCYTES # (AUTO) 0.8 K/uL (0.60-3.4); MEAN CORPUSCULAR HEMOGLOBIN 25.4 pg (27.0-31.0); MEAN CORPUSCULAR HGB CONC 31.2 (31.8-35.4); MEAN CORPUSCULAR VOLUME 81.3 fl (81.0-99.0); MONOCYTES # (AUTO) 0.6 K/uL (0.4-2.0); MONOCYTES % (AUTO) 4.9 (0-10); NEUTROPHILS # (AUTO) 10.2 K/ul (2.0-6.9); NEUTROPHILS % (AUTO) 86.8 % (42.2-75.2); PLATELET COUNT 223 10^3/uL (140-440); RDW COEFFICIENT OF VARIATION 15.3 % (11.6-14.8); RED BLOOD COUNT 4.49 10^6/ul (4.20-5.40); WHITE BLOOD COUNT 11.76 K/ul (4.6-10.2)
[2022-01-24 06:13] LABS: ALBUMIN 3.55 g/dL (3.5-5.0); ALKALINE PHOSPHATASE 94.2 U/L (53-141); ASPARTATE AMINO TRANSFERASE 152.4 U/L (14-36); BILIRUBIN,TOTAL 0.3 mg/dL (0.2-1.3); CALCIUM 7.57 mg/dL (8.4-10.2); CARBON DIOXIDE 27.9 mmol/L (22-30.0); CHLORIDE 94.5 mmol/L (98-107); CREATININE 2.59 mg/dL (0.60-1.30); GLUCOSE 191.7 mg/dL (74-106); POTASSIUM 3.7 mmol/L (3.5-5.1); SODIUM 131.9 mmol/L (134.5-145); TOTAL PROTEIN 6.17 g/dL (6.3-8.2)
[2022-01-24] MEDS: NON-FORMULARY MEDICATION (Cinnamon Bark [Cinnamon] 500 mg Capsule) PO SCH (09:28)
[2022-01-24] MEDS: NON-FORMULARY MEDICATION (Vit A-Vit C-Vit E-Zinc-Copper 7,160-113-100 unit-mg-unit Tablet) PO SCH (09:29)
[2022-01-24] MEDS: XARELTO PO SCH (09:30)
[2022-01-24] MEDS: MULTIVITAMIN TABLET PO SCH (09:30)
[2022-01-24] MEDS: COREG PO SCH ×2 (09:30→17:23)
[2022-01-24] MEDS: NORVASC PO SCH ×2 (09:30→21:07)
[2022-01-24] MEDS: DEXTROSE 5%-1/2NS IV SOLUTION 1,000 ML IV SCH (10:13)
[2022-01-24] MEDS: PROTONIX IV IVP SCH (10:13)
[2022-01-24] MEDS: DECADRON IVP SCH (10:13)
[2022-01-24] MEDS: ZOFRAN 4 MG/2 ML IVP PRN (10:20)
[2022-01-24] MEDS: PEPCID PO SCH (21:07)
[2022-01-25] MEDS: DEXTROSE 5%-1/2NS IV SOLUTION 1,000 ML IV SCH (04:40)
[2022-01-25] MEDS: LASIX TAB PO SCH (05:45)
[2022-01-25 06:05] LABS: BASOPHILS % (AUTO) 0.1 % (0.0-3.0); HEMOGLOBIN 10.3 g/dl (12.0-16.0); IMMATURE GRANULOCYTE # (AUTO) 0.1 (0.0-1.0); IMMATURE GRANULOCYTE % (AUTO) 0.6 % (0.0-5.0); LYMPHOCYTES % (AUTO) 7.8 (10.0-50.0); MEAN CORPUSCULAR HEMOGLOBIN 25.6 pg (27.0-31.0); MEAN CORPUSCULAR HGB CONC 32.2 (31.8-35.4); MEAN CORPUSCULAR VOLUME 79.6 fl (81.0-99.0); MONOCYTES # (AUTO) 1.2 K/uL (0.4-2.0); MONOCYTES % (AUTO) 9.2 (0-10); NEUTROPHILS # (AUTO) 10.3 K/ul (2.0-6.9); NEUTROPHILS % (AUTO) 82.3 % (42.2-75.2); PLATELET COUNT 194 10^3/uL (140-440); RDW COEFFICIENT OF VARIATION 15.2 % (11.6-14.8); RED BLOOD COUNT 4.02 10^6/ul (4.20-5.40); WHITE BLOOD COUNT 12.53 K/ul (4.6-10.2)
[2022-01-25 06:18] LABS: ALANINE AMINOTRANSFERASE 253.2 U/L (0-35); ALBUMIN 3.28 g/dL (3.5-5.0); ALKALINE PHOSPHATASE 81.3 U/L (53-141); ASPARTATE AMINO TRANSFERASE 57.1 U/L (14-36); BILIRUBIN,TOTAL 0.4 mg/dL (0.2-1.3); BLOOD UREA NITROGEN 59.6 mg/dL (7-17); CARBON DIOXIDE 31.4 mmol/L (22-30.0); CHLORIDE 93.1 mmol/L (98-107); CREATININE 1.71 mg/dL (0.60-1.30); GLUCOSE 165.4 mg/dL (74-106); POTASSIUM 3.29 mmol/L (3.5-5.1); SODIUM 133.3 mmol/L (134.5-145); TOTAL PROTEIN 5.82 g/dL (6.3-8.2)
[2022-01-25] MEDS: COREG PO SCH ×2 (09:06→17:19)
[2022-01-25] MEDS: MULTIVITAMIN TABLET PO SCH (09:06)
[2022-01-25] MEDS: NORVASC PO SCH ×2 (09:06→21:15)
[2022-01-25] MEDS: XARELTO PO SCH (09:06)
[2022-01-25] MEDS: NON-FORMULARY MEDICATION (Cinnamon Bark [Cinnamon] 500 mg Capsule) PO SCH (09:07)
[2022-01-25] MEDS: NON-FORMULARY MEDICATION (Vit A-Vit C-Vit E-Zinc-Copper 7,160-113-100 unit-mg-unit Tablet) PO SCH (09:07)
[2022-01-25] MEDS: PROTONIX IV IVP SCH (09:27)
[2022-01-25] MEDS: DECADRON IVP SCH (09:27)
[2022-01-25] MEDS: K-DUR PO SCH (17:19)
[2022-01-25] MEDS: PEPCID PO SCH (21:15)
[2022-01-26] MEDS: DEXTROSE 5%-1/2NS IV SOLUTION 1,000 ML IV SCH ×2 (00:24→20:56)
[2022-01-26] MEDS: LASIX TAB PO SCH (05:38)
[2022-01-26 05:40] LABS: BASOPHILS % (AUTO) 0.1 % (0.0-3.0); HEMATOCRIT 33.9 % (37.0-47.0); HEMOGLOBIN 10.7 g/dl (12.0-16.0); IMMATURE GRANULOCYTE # (AUTO) 0.1 (0.0-1.0); IMMATURE GRANULOCYTE % (AUTO) 0.7 % (0.0-5.0); LYMPHOCYTES # (AUTO) 1.1 K/uL (0.60-3.4); LYMPHOCYTES % (AUTO) 7.3 (10.0-50.0); MEAN CORPUSCULAR HEMOGLOBIN 25.5 pg (27.0-31.0); MEAN CORPUSCULAR HGB CONC 31.6 (31.8-35.4); MEAN CORPUSCULAR VOLUME 80.7 fl (81.0-99.0); MONOCYTES # (AUTO) 1.4 K/uL (0.4-2.0); MONOCYTES % (AUTO) 9.2 (0-10); NEUTROPHILS # (AUTO) 12.5 K/ul (2.0-6.9); NEUTROPHILS % (AUTO) 82.7 % (42.2-75.2); PLATELET COUNT 215 10^3/uL (140-440); RDW COEFFICIENT OF VARIATION 15.2 % (11.6-14.8); WHITE BLOOD COUNT 15.13 K/ul (4.6-10.2)
[2022-01-26 05:51] LABS: ALANINE AMINOTRANSFERASE 220.4 U/L (0-35); ALBUMIN 3.51 g/dL (3.5-5.0); ALKALINE PHOSPHATASE 92.2 U/L (53-141); ASPARTATE AMINO TRANSFERASE 43.8 U/L (14-36); BILIRUBIN,TOTAL 0.42 mg/dL (0.2-1.3); CALCIUM 8.65 mg/dL (8.4-10.2); CARBON DIOXIDE 32.9 mmol/L (22-30.0); CREATININE 1.67 mg/dL (0.60-1.30); GLUCOSE 164.2 mg/dL (74-106); POTASSIUM 3.62 mmol/L (3.5-5.1); TOTAL PROTEIN 6.24 g/dL (6.3-8.2)
[2022-01-26] MEDS: COREG PO SCH ×2 (09:10→17:36)
[2022-01-26] MEDS: MULTIVITAMIN TABLET PO SCH (09:11)
[2022-01-26] MEDS: K-DUR PO SCH ×2 (09:11→17:36)
[2022-01-26] MEDS: DECADRON IVP SCH (09:11)
[2022-01-26] MEDS: XARELTO PO SCH (09:11)
[2022-01-26] MEDS: NORVASC PO SCH ×2 (09:11→20:15)
[2022-01-26] MEDS: NON-FORMULARY MEDICATION (Cinnamon Bark [Cinnamon] 500 mg Capsule) PO SCH (09:12)
[2022-01-26] MEDS: NON-FORMULARY MEDICATION (Vit A-Vit C-Vit E-Zinc-Copper 7,160-113-100 unit-mg-unit Tablet) PO SCH (09:12)
[2022-01-26] MEDS: PROTONIX IV IVP SCH (09:12)
[2022-01-26] MEDS: PEPCID PO SCH (20:15)
[2022-01-27 05:05] LABS: BASOPHILS % (AUTO) 0.2 % (0.0-3.0); HEMATOCRIT 35.6 % (37.0-47.0); IMMATURE GRANULOCYTE # (AUTO) 0.1 (0.0-1.0); IMMATURE GRANULOCYTE % (AUTO) 0.9 % (0.0-5.0); LYMPHOCYTES # (AUTO) 1.2 K/uL (0.60-3.4); LYMPHOCYTES % (AUTO) 8.9 (10.0-50.0); MEAN CORPUSCULAR HEMOGLOBIN 25.3 pg (27.0-31.0); MEAN CORPUSCULAR HGB CONC 30.9 (31.8-35.4); MEAN CORPUSCULAR VOLUME 81.8 fl (81.0-99.0); MONOCYTES # (AUTO) 1.2 K/uL (0.4-2.0); MONOCYTES % (AUTO) 9.1 (0-10); NEUTROPHILS # (AUTO) 10.4 K/ul (2.0-6.9); NEUTROPHILS % (AUTO) 80.9 % (42.2-75.2); PLATELET COUNT 215 10^3/uL (140-440); RDW COEFFICIENT OF VARIATION 15.6 % (11.6-14.8); RED BLOOD COUNT 4.35 10^6/ul (4.20-5.40); WHITE BLOOD COUNT 12.86 K/ul (4.6-10.2)
[2022-01-27 05:18] LABS: ALANINE AMINOTRANSFERASE 160.6 U/L (0-35); ALBUMIN 3.52 g/dL (3.5-5.0); ALKALINE PHOSPHATASE 94.1 U/L (53-141); ASPARTATE AMINO TRANSFERASE 29.6 U/L (14-36); BILIRUBIN,TOTAL 0.4 mg/dL (0.2-1.3); BLOOD UREA NITROGEN 51.6 mg/dL (7-17); CALCIUM 8.74 mg/dL (8.4-10.2); CARBON DIOXIDE 34.4 mmol/L (22-30.0); CHLORIDE 95.1 mmol/L (98-107); CREATININE 1.74 mg/dL (0.60-1.30); GLUCOSE 192.2 mg/dL (74-106); POTASSIUM 4.63 mmol/L (3.5-5.1); SODIUM 134.5 mmol/L (134.5-145); TOTAL PROTEIN 6.18 g/dL (6.3-8.2)
[2022-01-27] MEDS: LASIX TAB PO SCH (05:44)
[2022-01-27] MEDS ORDERED: DEXTROSE 5%-1/2NS IV SOLUTION 1,000 ML IV SCH ×2 (08:23→16:39)
[2022-01-27] MEDS: K-DUR PO SCH (08:50)
[2022-01-27] MEDS: MULTIVITAMIN TABLET PO SCH (08:56)
[2022-01-27] MEDS: XARELTO PO SCH (08:56)
[2022-01-27] MEDS: COREG PO SCH ×3 (08:56→16:54)
[2022-01-27] MEDS ORDERED: COREG PO SCH ×2 (09:00)
--- NOTE | 2022-01-27 09:01 | PCM.PROG ---
Attending Provider: ATTENDING PROVIDER: Dr. FABIO OSUNA This patient is seen with Bouchra Wood, Nurse Practitioner. DATE OF SERVICE: 01/27/22 SUBJECTIVE: This 86 year old /WHITE F was hospitalized 01/20/22. Kidney function slightly worse today. She is eating moderately well, states she can't eat much due to hiatal hernia. Heart rate has been low 100's. 3 step test yesterday and she qualifies for home O2. The patient states that she is ready to go home. REVIEW OF SYSTEMS: CONSTITUTIONAL: No night sweats. No fatigue, malaise, lethargy. No fever or chills. Weakness. HEENT: Eyes: No visual changes. No eye pain. No eye discharge. ENT: No runny nose. No epistaxis. No sinus pain. No odynophagia. No congestion. RESPIRATORY: No cough, no congestion. No hemoptysis. No shortness of breath. CARDIOVASCULAR: No angina symptoms. No CHF symptoms. No atypical chest pain for CAD. No palpitations. No orthopnea. Tachycardia. GASTROINTESTINAL: Intermittent abdominal pain. No nausea or vomiting. No diarrhea or constipation. No hematemesis. No hematochezia. GENITOURINARY: No urgency. No frequency. No dysuria. No hematuria. No obstructive symptoms. No discharge. No pain. No significant abnormal bleeding. MUSCULOSKELETAL: No musculoskeletal pain; no joint swelling. NEUROLOGICAL: Awake, alert, oriented to time, place and person. No headache. No neck pain. No syncope. No seizures. No dizziness. PSYCHIATRIC: Not anxious. No depression. No suicidal thoughts. No homicidal thoughts. SKIN: No rash. No lesions. No wounds. ENDOCRINE: No unexplained weight loss. No weight gain. HEMATOLOGIC/LYMPHATIC: No anemia. No purpura. No petechiae. No prolonged or excessive bleeding. No palpable lymph nodes. PHYSICAL EXAMINATION: GENERAL: The patient is awake, alert and oriented, lying in bed in no distress. VITAL SIGNS: Temperature 97.7 F, Pulse 106, Respiratory Rate 18, BP 128/69, Pulse Ox 93% HEENT: Head normocephalic, atraumatic. Eyes: Extraocular muscles are intact. Pupils are equal, round and reactive to light and accommodation. Ears: No lesions. Nose appeared normal. Throat: No exudate or erythema. NECK: Supple. No JVD, no carotid bruit. No lymphadenopathy or thyromegaly. LUNGS: Diminished breath sounds. Clear to auscultation. Percussion note normal. Chest symmetrical. HEART: S1, S2, no S3. Irregular heart rate. No murmurs. No cyanosis or clubbing. No ascites. Pulses: Dorsalis pedis and posterior tibial pulses +1 to +2 both sides. ABDOMEN: Soft. Non-tender. Bowel sounds active. No CVA tenderness. No mass felt. EXTREMITIES: No edema. Full range of motion of all extremities, equal. NEUROLOGIC: No focal deficit. Cranial nerves II through XII are grossly intact. No headache. No double vision. SKIN: Not dry. Intact. Turgor-normal. LYMPHATIC: No palpable lymph nodes/no lymphedema. MUSCULOSKELETAL: Normal joints with no swelling. Muscle tone is normal. LAB REVIEW: 01/27/22 04:47 01/27/22 04:47 01/27/22 04:47: Sodium 134.5, Potassium 4.63, Chloride 95.1 L, Carbon Dioxide 34.4 H, Anion Gap 9.63, BUN 51.6 H, Creatinine 1.74 H, Estimated GFR (MDRD) 28.00, BUN/Creatinine Ratio 29.65, Glucose 192.2 H, Calcium 8.74, Total Bilirubin 0.40, AST 29.6, ALT 160.6 H D, Alkaline Phosphatase 94.1, Total Protein 6.18 L, Albumin 3.52, Globulin 2.66, Albumin/Globulin Ratio 1.32 01/27/22 04:47: WBC 12.86 H, RBC 4.35, Hgb 11.0 L, Hct 35.6 L, MCV 81.8, MCH 25.3 L, MCHC 30.9 L, RDW Coeff of Sera 15.6 H, Plt Count 215, Immature Gran % (Auto) 0.9, Neut % (Auto) 80.9 H, Lymph % (Auto) 8.9 L, [place] % (Auto) 9.1, Eos % (Auto) 0.0, Baso % (Auto) 0.2, Neut # (Auto) 10.4 H, Lymph # (Auto) 1.2, [place] # (Auto) 1.2, Eos # (Auto) 0.0, Baso # (Auto) 0.0, Immature Gran # (Auto) 0.1 ASSESSMENT: Please see below. 1. Atrial fibrillation/flutter 2. Renal Azotemia 2. Large Hiatal hernia 4. Chronic lung disease 5. CHF PLAN: 1. Increase IV fluids to 80cc for one bag then down to 50cc 2. Potassium 20meq daily 3. Hold Lasix dose tomorrow. Plan and coordination of the patient's care discussed in the presence of [facility] and nurse. SCRIBED BY: Abbi MILES scribed while in presence of service performed by Dr. Osuna/Bouchra Wood APRN on 01/27/22 ([id number])
[2022-01-27] MEDS: NON-FORMULARY MEDICATION (Cinnamon Bark [Cinnamon] 500 mg Capsule) PO SCH (09:02)
[2022-01-27] MEDS: NON-FORMULARY MEDICATION (Vit A-Vit C-Vit E-Zinc-Copper 7,160-113-100 unit-mg-unit Tablet) PO SCH (09:02)
[2022-01-27] MEDS: PROTONIX IV IVP SCH (09:03)
[2022-01-27] MEDS: DECADRON IVP SCH (09:03)
[2022-01-27] MEDS: CARDIZEM PO SCH ×2 (14:53→20:22)
[2022-01-27] MEDS ORDERED: LASIX IVP ONE (18:30)
[2022-01-27] MEDS ORDERED: LASIX ONE (18:38)
[2022-01-27] MEDS: PEPCID PO SCH (20:22)
[2022-01-27] MEDS: NORVASC PO SCH (20:23)
[2022-01-28 05:24] LABS: BASOPHILS % (AUTO) 0.2 % (0.0-3.0); HEMATOCRIT 32.7 % (37.0-47.0); IMMATURE GRANULOCYTE # (AUTO) 0.2 (0.0-1.0); IMMATURE GRANULOCYTE % (AUTO) 1.7 % (0.0-5.0); LYMPHOCYTES # (AUTO) 1.1 K/uL (0.60-3.4); LYMPHOCYTES % (AUTO) 10.1 (10.0-50.0); MEAN CORPUSCULAR HEMOGLOBIN 25.1 pg (27.0-31.0); MEAN CORPUSCULAR HGB CONC 30.6 (31.8-35.4); MONOCYTES # (AUTO) 0.9 K/uL (0.4-2.0); NEUTROPHILS # (AUTO) 8.7 K/ul (2.0-6.9); PLATELET COUNT 213 10^3/uL (140-440); RDW COEFFICIENT OF VARIATION 15.7 % (11.6-14.8); RED BLOOD COUNT 3.99 10^6/ul (4.20-5.40); WHITE BLOOD COUNT 10.81 K/ul (4.6-10.2)
[2022-01-28 05:40] LABS: ALANINE AMINOTRANSFERASE 123.8 U/L (0-35); ALBUMIN 3.2 g/dL (3.5-5.0); ALKALINE PHOSPHATASE 85.3 U/L (53-141); ASPARTATE AMINO TRANSFERASE 28.5 U/L (14-36); BILIRUBIN,TOTAL 0.39 mg/dL (0.2-1.3); BLOOD UREA NITROGEN 53.3 mg/dL (7-17); CALCIUM 8.62 mg/dL (8.4-10.2); CARBON DIOXIDE 33.7 mmol/L (22-30.0); CHLORIDE 95.3 mmol/L (98-107); CREATININE 1.8 mg/dL (0.60-1.30); GLUCOSE 197.7 mg/dL (74-106); POTASSIUM 3.9 mmol/L (3.5-5.1); TOTAL PROTEIN 5.95 g/dL (6.3-8.2)
[2022-01-28] MEDS ORDERED: LASIX TAB PO ONE (09:09)
--- NOTE | 2022-01-28 09:47 | PCM.PROG ---
Attending Provider: ATTENDING PROVIDER: Dr. FABIO OSUNA This patient is seen with Bouchra Wood, Nurse Practitioner. DATE OF SERVICE: 01/28/22 SUBJECTIVE: This 86 year old /WHITE F was hospitalized 01/20/22. After increase to Coreg heart rate has been 80s to 120s. Yesterday evening breathing did become more labored requiring additional Lasix which helped. Renal function slightly up from yesterday, increase from baseline. REVIEW OF SYSTEMS: CONSTITUTIONAL: No night sweats. No fatigue, malaise, lethargy. No fever or chills. Weakness. HEENT: Eyes: No visual changes. No eye pain. No eye discharge. ENT: No runny nose. No epistaxis. No sinus pain. No odynophagia. No congestion. RESPIRATORY: No cough, no congestion. No hemoptysis. Shortness of breath. CARDIOVASCULAR: No angina symptoms. No CHF symptoms. No atypical chest pain for CAD. No palpitations. No orthopnea.. GASTROINTESTINAL: No abdominal pain. No nausea or vomiting. No diarrhea or constipation. No hematemesis. No hematochezia. GENITOURINARY: No urgency. No frequency. No dysuria. No hematuria. No obs tructive symptoms. No discharge. No pain. No significant abnormal bleeding. MUSCULOSKELETAL: No musculoskeletal pain; no joint swelling. NEUROLOGICAL: Awake, alert, oriented to time, place and person. No headache. No neck pain. No syncope. No seizures. No dizziness. PSYCHIATRIC: Not anxious. No depression. No suicidal thoughts. No homicidal thoughts. SKIN: No rash. No lesions. No wounds. ENDOCRINE: No unexplained weight loss. No weight gain. HEMATOLOGIC/LYMPHATIC: No anemia. No purpura. No petechiae. No prolonged or excessive bleeding. No palpable lymph nodes. PHYSICAL EXAMINATION: GENERAL: The patient is awake, alert and oriented, sitting in bed in no distress. VITAL SIGNS: Temperature 97.9 F, Pulse 86, Respiratory Rate 24, BP 121/70, Pulse Ox 94% HEENT: Head normocephalic, atraumatic. Eyes: Extraocular muscles are intact. Pupils are equal, round and reactive to light and accommodation. Ears: No lesions. Nose appeared normal. Throat: No exudate or erythema. NECK: Supple. No JVD, no carotid bruit. No lymphadenopathy or thyromegaly. LUNGS: Diminished breath sounds. Crackles on left. Clear to auscultation. Percussion note normal. Chest symmetrical. HEART: S1, S2, no S3. No murmurs. No cyanosis or clubbing. No ascites. Pulses: Dorsalis pedis and posterior tibial pulses +1 to +2 both sides. ABDOMEN: Soft. Non-tender. Bowel sounds active. No CVA tenderness. No mass felt. EXTREMITIES: No edema. Full range of motion of all extremities, equal. NEUROLOGIC: No focal deficit. Cranial nerves II through XII are grossly intact. No headache. No double vision. SKIN: Not dry. Intact. Turgor-normal. LYMPHATIC: No palpable lymph nodes/no lymphedema. MUSCULOSKELETAL: Normal joints with no swelling. Muscle tone is normal. LAB REVIEW: 01/28/22 04:50 01/28/22 04:50 01/28/22 04:50: Sodium 134.0 L, Potassium 3.90, Chloride 95.3 L, Carbon Dioxide 33.7 H, Anion Gap 8.90, BUN 53.3 H, Creatinine 1.80 H, Estimated GFR (MDRD) 27.00, BUN/Creatinine Ratio 29.61, Glucose 197.7 H, Calcium 8.62, Total Bi lirubin 0.39, AST 28.5, ALT 123.8 H D, Alkaline Phosphatase 85.3, Total Protein 5.95 L, Albumin 3.20 L, Globulin 2.75, Albumin/Globulin Ratio 1.16 01/28/22 04:50: WBC 10.81 H, RBC 3.99 L, Hgb 10.0 L, Hct 32.7 L, MCV 82.0, MCH 25.1 L, MCHC 30.6 L, RDW Coeff of Sera 15.7 H, Plt Count 213, Immature Gran % (Auto) 1.7, Neut % (Auto) 80.0 H, Lymph % (Auto) 10.1, [place] % (Auto) 8.0, Eos % (Auto) 0.0, Baso % (Auto) 0.2, Neut # (Auto) 8.7 H, Lymph # (Auto) 1.1, [place] # (Auto) 0.9, Eos # (Auto) 0.0, Baso # (Auto) 0.0, Immature Gran # (Auto) 0.2 ASSESSMENT: Please see below. 1. Atrail fibrillation/flutter 2. Renal azotemia 3. CHF PLAN: 1. Decrease IV fluids 2. Lasix 20mg PO Plan and coordination of the patient's care discussed in the presence of [employer] and nurse. SCRIBED BY: Abbi MILES scribed while in presence of service performed by Dr. Osuna/Bouchra Wood APRN on 01/28/22 ([id number])
[2022-01-28] MEDS: COREG PO SCH ×2 (10:17→16:48)
[2022-01-28] MEDS: MULTIVITAMIN TABLET PO SCH (10:17)
[2022-01-28] MEDS: XARELTO PO SCH (10:17)
[2022-01-28] MEDS: CARDIZEM PO SCH ×2 (10:17→20:06)
[2022-01-28] MEDS: K-DUR PO SCH (10:17)
[2022-01-28] MEDS: PROTONIX IV IVP SCH (10:17)
[2022-01-28] MEDS: DECADRON IVP SCH (10:18)
[2022-01-28] MEDS: NON-FORMULARY MEDICATION (Vit A-Vit C-Vit E-Zinc-Copper 7,160-113-100 unit-mg-unit Tablet) PO SCH (10:18)
[2022-01-28] MEDS: NON-FORMULARY MEDICATION (Cinnamon Bark [Cinnamon] 500 mg Capsule) PO SCH (10:18)
--- NOTE | 2022-01-28 13:26 | PN ---
DATE OF SERVICE: 12/27/21 SUBJECTIVE: The patient was seen and examined with the Nurse Practitioner. The patient's condition is stabilizing. Blood pressure is more than 150 systolic and the pulse atrial fibrillation with rate of 130-140. We will restart the patient on Cardizem 60mg twice a day along with increasing the dose of Coreg to 6.25 twice a day. The patient's kidney functions have improve from what they were a days ago. Condition it stabilizing. The patient wants to go home. TIME SPENT: More than 30 minutes. Plan and coordination of the patient's care discussed in the presence of nurse. KIKO
[2022-01-28] MEDS: NORVASC PO SCH (20:06)
[2022-01-28] MEDS: PEPCID PO SCH (20:06)
[2022-01-29 04:57] LABS: BASOPHILS % (AUTO) 0.2 % (0.0-3.0); HEMATOCRIT 34.1 % (37.0-47.0); HEMOGLOBIN 10.6 g/dl (12.0-16.0); IMMATURE GRANULOCYTE # (AUTO) 0.3 (0.0-1.0); IMMATURE GRANULOCYTE % (AUTO) 3.1 % (0.0-5.0); LYMPHOCYTES # (AUTO) 0.9 K/uL (0.60-3.4); LYMPHOCYTES % (AUTO) 8.9 (10.0-50.0); MEAN CORPUSCULAR HEMOGLOBIN 25.1 pg (27.0-31.0); MEAN CORPUSCULAR HGB CONC 31.1 (31.8-35.4); MEAN CORPUSCULAR VOLUME 80.8 fl (81.0-99.0); MONOCYTES # (AUTO) 0.6 K/uL (0.4-2.0); MONOCYTES % (AUTO) 5.4 (0-10); NEUTROPHILS # (AUTO) 8.3 K/ul (2.0-6.9); NEUTROPHILS % (AUTO) 82.4 % (42.2-75.2); PLATELET COUNT 274 10^3/uL (140-440); RDW COEFFICIENT OF VARIATION 15.6 % (11.6-14.8); RED BLOOD COUNT 4.22 10^6/ul (4.20-5.40)
[2022-01-29 05:12] LABS: ALANINE AMINOTRANSFERASE 99.3 U/L (0-35); ALBUMIN 3.41 g/dL (3.5-5.0); ALKALINE PHOSPHATASE 88.1 U/L (53-141); ASPARTATE AMINO TRANSFERASE 21.4 U/L (14-36); BILIRUBIN,TOTAL 0.45 mg/dL (0.2-1.3); BLOOD UREA NITROGEN 57.8 mg/dL (7-17); CALCIUM 8.99 mg/dL (8.4-10.2); CARBON DIOXIDE 31.1 mmol/L (22-30.0); CHLORIDE 94.7 mmol/L (98-107); CREATININE 1.59 mg/dL (0.60-1.30); GLUCOSE 201.1 mg/dL (74-106); POTASSIUM 4.16 mmol/L (3.5-5.1); SODIUM 132.6 mmol/L (134.5-145); TOTAL PROTEIN 6.27 g/dL (6.3-8.2)
[2022-01-29] MEDS: LASIX TAB PO SCH (06:09)
[2022-01-29] MEDS: K-DUR PO SCH (08:43)
[2022-01-29] MEDS: MULTIVITAMIN TABLET PO SCH (08:43)
[2022-01-29] MEDS: COREG PO SCH ×2 (08:43→17:13)
[2022-01-29] MEDS: CARDIZEM PO SCH ×2 (08:43→20:09)
[2022-01-29] MEDS: NON-FORMULARY MEDICATION (Cinnamon Bark [Cinnamon] 500 mg Capsule) PO SCH (08:44)
[2022-01-29] MEDS: NON-FORMULARY MEDICATION (Vit A-Vit C-Vit E-Zinc-Copper 7,160-113-100 unit-mg-unit Tablet) PO SCH (08:44)
[2022-01-29] MEDS: XARELTO PO SCH (08:44)
--- NOTE | 2022-01-29 08:44 | PN ---
DATE OF SERVICE: 01/22/22 SUBJECTIVE: 86 year old white female hospitalized with CHF exacerbation and acute pulmonary edema. The patient's condition has improved. There are no symptoms of CHF this morning. She is feeling better and wants to go home. Explained to her that she needs to be staying here a couple of days because kidney functions are abnormal from diureses. She needs fluids and start eating a little bit better. REVIEW OF SYSTEMS: CONSTITUTIONAL: No night sweats. No fatigue, malaise, lethargy. No fever or chills. HEENT: Eyes: No visual changes. No eye pain. No eye discharge. ENT: No runny nose. No epistaxis. No sinus pain. No sore throat. No odynophagia. No congestion. RESPIRATORY: No cough, no congestion. No hemoptysis. No shortness of breath. CARDIOVASCULAR: No angina symptoms. No CHF symptoms. No atypical chest pain for CAD. No palpitations. No PND. No orthopnea. GASTROINTESTINAL: No abdominal pain. No nausea or vomiting. No diarrhea or constipation. No hematemesis. No hematochezia. Appetite still not up to par. GENITOURINARY: No urgency. No frequency. No dysuria. No hematuria. No obstructive symptoms. No discharge. No pain. No significant abnormal bleeding. MUSCULOSKELETAL: No musculoskeletal pain; no joint swelling. NEUROLOGICAL: No headache. No neck pain. No syncope. No seizures. No dizziness. PSYCHIATRIC: Not anxious. No depression. No suicidal thoughts. No homicidal thoughts. SKIN: No rash. No lesions. No wounds. ENDOCRINE: No unexplained weight loss. No weight gain. HEMATOLOGIC/LYMPHATIC: No anemia. No purpura. No petechiae. No prolonged or excessive bleeding. No palpable lymph nodes. PHYSICAL EXAMINATION: VITAL SIGNS: Temperature 97.4, pulse 95, respiratory rate 18, blood pressure 118/71 and pulse ox 95% HEENT: Head normocephalic, atraumatic. Eyes: Extraocular muscles are intact. Pupils are equal, round and reactive to light and accommodation. Ears: No lesions. Nose appeared normal. Throat: No exudate or erythema. NECK: Supple. No JVD, no carotid bruit. No lymphadenopathy or thyromegaly. LUNGS:Decreased breath sounds but clear to auscultation. Percussion note normal. Chest symmetrical. HEART: S1, S2, no S3. No murmurs. No cyanosis or clubbing. No ascites. Pulses: Dorsalis pedis and posterior tibial pulses +1 to +2 bilaterally. ABDOMEN: Soft. Nontender. Bowel sounds active. No CVA tenderness. No mass felt. EXTREMITIES: No edema. Full range of motion of all extremities, equal. NEUROLOGIC: No focal deficit. Cranial nerves II through XII are grossly intact. No headache. No double vision. SKIN: Not dry. Intact. Turgor - normal. LYMPHATIC: No palpable lymph nodes/no lymphedema. MUSCULOSKELETAL: Normal joints with no swelling. Muscle tone is normal. LABS: Hgb 11.2, hct 36, WBC 8,000 normal differential, creatinine 2.5, BUN 54, potassium 5. ASSESSMENT: 1. CHF seems to be under control 2. Renal azotemia 3. Chronic lung disease 4. Large hiatal hernia with history of reflux PLAN: 1. Discontinue potassium, potassium was 5 2. The patient's IV Lasix has been discontinued. She is now on PO Lasix 3. ABG in the morning. ADDENDUM: After the patient was seen in the morning afternoon time the patient's condition worsened. All of a sudden she was noted to be bradyarrhythmias with rate of 25- 30 per minute. Systolic blood pressure of 70. The patient was moist and somewhat unresponsive. The patient was given Atropine IV but it is to be noted the patient is in atrial fibrillation with no much response. Pulse went up to 40-45. Started on Dopamine 15mcg per KG per minute and blood pressure had come up to 80 systolic with pulse of 45. Had complaint of some abdominal pain, abdomen was soft. She had huge hiatal hernia. She looked pale when the heart rate was slow because of hypoperfusion. She pinked up some. The patient's grandson was called and didn't want any heroic measures or any unnecessary labs or tests. He wants the comfort measures. The patient is going to be given Morphine Sulfate 2-3mg every 2-3 hourly for pain and Dopamine drip. Hold all the antihypertensive medications which could cause bradycardia like Coreg like Cardizem. CONDITION: Critical PROGNOSIS: poor Total time spent: More than 60 minutes extensive. Plan and coordination of the patient's care discussed in the presence of nurse. KIKO
[2022-01-29] MEDS: PROTONIX IV IVP SCH (08:55)
[2022-01-29] MEDS: DECADRON IVP SCH (08:55)
--- NOTE | 2022-01-29 13:18 | PN ---
DATE OF SERVICE: 01/23/22 SUBJECTIVE: The patient was seen and examined this morning. The patient's condition has improved. She is getting ready to have her breakfast, her appetite is not that good. Both sons are present in the room. The patient had severe hypotension with bradyarrhythmias with rate of 25-30 per minute. For a while she was practically unresponsive but now she has come around. EKG showed atrial fibrillation/flutter with old inferior SC, no acute changes noted. REVIEW OF SYSTEMS: CONSTITUTIONAL: No night sweats. No fever or chills. Weak and tired. HEENT: Eyes: No visual changes. No eye pain. No eye discharge. ENT: No runny nose. No epistaxis. No sinus pain. No sore throat. No odynophagia. No congestion. RESPIRATORY: No cough, no congestion. No hemoptysis. No shortness of breath. CARDIOVASCULAR: No angina symptoms. No CHF symptoms. No atypical chest pain for CAD. No palpitations. No PND. No orthopnea. GASTROINTESTINAL: No abdominal pain. No nausea or vomiting. No diarrhea or constipation. No hematemesis. No hematochezia. Appetite is not there. GENITOURINARY: No urgency. No frequency. No dysuria. No hematuria. No obstructive symptoms. No discharge. No pain. No significant abnormal bleeding. MUSCULOSKELETAL: No musculoskeletal pain; no joint swelling. NEUROLOGICAL: No headache. No neck pain. No syncope. No seizures. No dizziness. PSYCHIATRIC: Not anxious. No depression. No suicidal thoughts. No homicidal thoughts. SKIN: No rash. No lesions. No wounds. ENDOCRINE: No unexplained weight loss. No weight gain. HEMATOLOGIC/LYMPHATIC: No anemia. No purpura. No petechiae. No prolonged or excessive bleeding. No palpable lymph nodes. PHYSICAL EXAMINATION: VITAL SIGNS: Systolic blood pressure 138. pulse 90, respiratory rate 15, temperature 98.6 HEENT: Head normocephalic, atraumatic. Eyes: Extraocular muscles are intact. Pupils are equal, round and reactive to light and accommodation. Ears: No lesions. Nose appeared normal. Throat: No exudate or erythema. NECK: Supple. No JVD, no carotid bruit. No lymphadenopathy or thyromegaly. LUNGS: Decreased breath sounds with good air entry. Clear to auscultation. Percussion note normal. Chest symmetrical. HEART: S1, S2, no S3. No murmurs. Irregular. No cyanosis or clubbing. No ascites. Pulses: Dorsalis pedis and posterior tibial pulses +1 to +2 bilaterally. ABDOMEN: Soft. Nontender. Bowel sounds active. No CVA tenderness. No mass felt. EXTREMITIES: No edema. Full range of motion of all extremities, equal. NEUROLOGIC: No focal deficit. Cranial nerves II through XII are grossly intact. No headache. No double vision. SKIN: Not dry. Intact. Turgor - normal. LYMPHATIC: No palpable lymph nodes/no lymphedema. MUSCULOSKELETAL: Normal joints with no swelling. Muscle tone is normal. LABS: Markedly elevated AST and ALT more than 500, Bilirubin is normal, creatinine is more than 3 with BUN of more than 60. Findings discussed with both sons and the patient. They don't want anything further done in a way of repeat CAT scan or further evaluations but any consultants like respiratory therapy instructor. Wants DNR. The patient does not want any further test. PLAN: 1. Give IV fluids 70cc per hour 2. Encourage the patient to eat 3. Watch for fluid overload 4. Continue telemetry 5. Hold the medications like Coreg and Cardizem for now. 6. Wean the patient off Dopamine drip. She is on 15mcg per KG per minute. 7. The patient also has hyperkalemia with potassium of 5.7. We will Kayexalate 5grams PO CONDITION: Stable for now PROGNOSIS: Poor The patient is DNR. CODE: Extensive TIME SPENT: More than 55 minutes face to face. Plan and coordination of the patient's care discussed in the presence of nurse. KIKO
--- NOTE | 2022-01-29 13:27 | PN ---
DATE OF SERVICE: 01/24/22 SUBJECTIVE: 86 year old white female hospitalized with CHF exacerbation. The patient's condition has improved. She was about to be discharged then developed hypotension with bradyarrhythmias. Medications were taken off Cardizem and Coreg. She was put on Dopamine 15mcg per KG per minute. She was given Atropine and legs were elevated. The patient's condition improved within 2-3 hours. The patient's family was aware of that fact that the patient's condition had become critical and the sons that were present did not want any further investigation. The patient is a DNR. The patient this morning was sitting up in the chair and waiting for breakfast. She is oriented to time, place and person. REVIEW OF SYSTEMS: CONSTITUTIONAL: No night sweats. No fatigue, malaise, lethargy. No fever or chills. HEENT: Eyes: No visual changes. No eye pain. No eye discharge. ENT: No runny nose. No epistaxis. No sinus pain. No sore throat. No odynophagia. No congestion. RESPIRATORY: No cough, no congestion. No hemoptysis. No shortness of breath. CARDIOVASCULAR: No angina symptoms. No CHF symptoms. No atypical chest pain for CAD. No palpitations. No PND. No orthopnea. GASTROINTESTINAL: No abdominal pain. No nausea or vomiting. No diarrhea or constipation. No hematemesis. No hematochezia. GENITOURINARY: No urgency. No frequency. No dysuria. No hematuria. No obstructive symptoms. No discharge. No pain. No significant abnormal bleeding. MUSCULOSKELETAL: No musculoskeletal pain; no joint swelling. NEUROLOGICAL: No headache. No neck pain. No syncope. No seizures. No dizziness. PSYCHIATRIC: Not anxious. No depression. No suicidal thoughts. No homicidal thoughts. SKIN: No rash. No lesions. No wounds. ENDOCRINE: No unexplained weight loss. No weight gain. HEMATOLOGIC/LYMPHATIC: No anemia. No purpura. No petechiae. No prolonged or excessive bleeding. No palpable lymph nodes. PHYSICAL EXAMINATION: VITAL SIGNS: Temperature 96.8, pulse 80, respiratory rate 18, blood pressure 140/78 and pulse ox 94%. HEENT: Head normocephalic, atraumatic. Eyes: Extraocular muscles are intact. Pupils are equal, round and reactive to light and accommodation. Ears: No lesions. Nose appeared normal. Throat: No exudate or erythema. NECK: Supple. No JVD, no carotid bruit. No lymphadenopathy or thyromegaly. LUNGS: Decreased breath sounds but clear to auscultation. Percussion note normal. Chest symmetrical. HEART: S1, S2, no S3. No murmurs. No cyanosis or clubbing. No ascites. Pulses: Dorsalis pedis and posterior tibial pulses +1 to +2 bilaterally. ABDOMEN: Soft. Nontender. Bowel sounds active. No CVA tenderness. No mass felt. EXTREMITIES: No edema. Full range of motion of all extremities, equal. NEUROLOGIC: No focal deficit. Cranial nerves II through XII are grossly intact. No headache. No double vision. SKIN: Not dry. Intact. Turgor - normal. LYMPHATIC: No palpable lymph nodes/no lymphedema. MUSCULOSKELETAL: Normal joints with no swelling. Muscle tone is normal. LABS: Hgb 11.4, hct 36,WBC 11,000 normal differential, creatinine 2.5, BUN 69, potassium 3.7. ASSESSMENT: 1. Bradyarrhythmias with atrial fibrillation seems to have improved 2. Hypotension seems to have resolved 3. No evidence of any acute myocardial events. CKMB was 3.9 with normal CK level. 4. Renal failure seems to be improving with creatinine now 2.5, yesterday it was more than 3 PLAN: 1. Continue slow IV fluids, decrease to 50cc per hour 2. Encourage the patient to eat 3. Start Coreg 3.25mg PO twice a day. The patient used to be on 12.5mg a day. The patient's pulse rate is 80 per minute and the blood pressure is 142/72. 4. Amlodipine 5mg twice a day to be started. 5. Will discontinue Cardizem CONDITION: Improving. TIME SPENT: More than 30 minutes. Plan and coordination of the patient's care discussed in the presence of nurse. KIKO
--- NOTE | 2022-01-29 14:09 | PN ---
DATE OF SERVICE: 01/25/22 SUBJECTIVE: 86 year old white female hospitalized with CHF exacerbation. The patient's condition has improved. She went into hypotension with bradyarrhythmia which has improved. The patient was treated with Atropine initially with Dopamine later on. The patient is eating well. The grandson is present in the room. REVIEW OF SYSTEMS: CONSTITUTIONAL: No night sweats. No fatigue, malaise, lethargy. No fever or chills. HEENT: Eyes: No visual changes. No eye pain. No eye discharge. ENT: No runny nose. No epistaxis. No sinus pain. No sore throat. No odynophagia. No congestion. RESPIRATORY: No cough, no congestion. No hemoptysis. No shortness of breath. CARDIOVASCULAR: No angina symptoms. No CHF symptoms. No atypical chest pain for CAD. No palpitations. No PND. No orthopnea. GASTROINTESTINAL: No abdominal pain. No nausea or vomiting. No diarrhea or constipation. No hematemesis. No hematochezia. GENITOURINARY: No urgency. No frequency. No dysuria. No hematuria. No obstructive symptoms. No discharge. No pain. No significant abnormal bleeding. MUSCULOSKELETAL: No musculoskeletal pain; no joint swelling. NEUROLOGICAL: No headache. No neck pain. No syncope. No seizures. No dizziness. PSYCHIATRIC: Not anxious. No depression. No suicidal thoughts. No homicidal thoughts. SKIN: No rash. No lesions. No wounds. ENDOCRINE: No unexplained weight loss. No weight gain. HEMATOLOGIC/LYMPHATIC: No anemia. No purpura. No petechiae. No prolonged or excessive bleeding. No palpable lymph nodes. PHYSICAL EXAMINATION: VITAL SIGNS: temperature 97.3, pulse 99, respiratory rate 16, blood pressure 135/88 and pulse ox 97% on 2 liters. HEENT: Head normocephalic, atraumatic. Eyes: Extraocular muscles are intact. Pupils are equal, round and reactive to light and accommodation. Ears: No lesions. Nose appeared normal. Throat: No exudate or erythema. NECK: Supple. No JVD, no carotid bruit. No lymphadenopathy or thyromegaly. LUNGS: Decreased breath sounds but clear to auscultation. Percussion note normal. Chest symmetrical. HEART: S1, S2, no S3. No murmurs. No cyanosis or clubbing. No ascites. Pulses: Dorsalis pedis and posterior tibial pulses +1 to +2 bilaterally. ABDOMEN: Soft. Nontender. Bowel sounds active. No CVA tenderness. No mass felt. EXTREMITIES: No edema. Full range of motion of all extremities, equal. NEUROLOGIC: No focal deficit. Cranial nerves II through XII are grossly intact. No headache. No double vision. SKIN: Not dry. Intact. Turgor - normal. LYMPHATIC: No palpable lymph nodes/no lymphedema. MUSCULOSKELETAL: Normal joints with no swelling. Muscle tone is normal. LABS: AST and ALT going down. Potassium is down to 3.2, will have to give Potassium supplement. ASSESSMENT: 1. CHF seems to have resolved 2. Bradyarrhythmias resolved 3. Hypotension, resolved. 4. Hypokalemia treated with potassium supplements PLAN: 1. IV fluids being infused 2. Advised to drink and eat as much as she could 3. Kidney failure has resolved, creatinine is 1.7 and BUN 59. CONDITION: Improving. TIME SPENT: More than 30 minutes. Plan and coordination of the patient's care discussed in the presence of nurse. KIKO
--- NOTE | 2022-01-29 14:27 | PN ---
DATE OF SERVICE: 01/26/22 SUBJECTIVE: 86 year old white female hospitalized with CHF exacerbation. The patient's condition has improved. She went through a phase where she dropped her heart rate into 20s and 30s with hypotension with systolic blood pressure of 70. She was treated with Atropine and Dopamine drip 15mcg per KG per minute and improved her medications for controlling her rate with atrial fibrillation they were held like Coreg and Cardizem. The patient is now on Coreg 3.125mg BID. She is still on IV fluids. The episode that she had put the patient into acute renal failure.Condition has improved now with creatinine of 1.6 and BUN 48, potassium 3.6. REVIEW OF SYSTEMS: CONSTITUTIONAL: No night sweats. No fatigue, malaise, lethargy. No fever or chills. HEENT: Eyes: No visual changes. No eye pain. No eye discharge. ENT: No runny nose. No epistaxis. No sinus pain. No sore throat. No odynophagia. No congestion. RESPIRATORY: No cough, no congestion. No hemoptysis. No shortness of breath. CARDIOVASCULAR: No angina symptoms. No CHF symptoms. No atypical chest pain for CAD. No palpitations. No PND. No orthopnea. GASTROINTESTINAL: No abdominal pain. No nausea or vomiting. No diarrhea or constipation. No hematemesis. No hematochezia. The patient's appetite has improved. GENITOURINARY: No urgency. No frequency. No dysuria. No hematuria. No obstructive symptoms. No discharge. No pain. No significant abnormal bleeding. MUSCULOSKELETAL: No musculoskeletal pain; no joint swelling. NEUROLOGICAL: No headache. No neck pain. No syncope. No seizures. No dizziness. PSYCHIATRIC: Not anxious. No depression. No suicidal thoughts. No homicidal thoughts. SKIN: No rash. No lesions. No wounds. ENDOCRINE: No unexplained weight loss. No weight gain. HEMATOLOGIC/LYMPHATIC: No anemia. No purpura. No petechiae. No prolonged or excessive bleeding. No palpable lymph nodes. PHYSICAL EXAMINATION: VITAL SIGNS: Temperature 97.7, pulse 58, respiratory rate 18, blood pressure 115/75 and pulse ox 92%. HEENT: Head normocephalic, atraumatic. Eyes: Extraocular muscles are intact. Pupils are equal, round and reactive to light and accommodation. Ears: No lesions. Nose appeared normal. Throat: No exudate or erythema. NECK: Supple. No JVD, no carotid bruit. No lymphadenopathy or thyromegaly. LUNGS: Decreased breath sounds but clear to auscultation. Percussion note normal. Chest symmetrical. HEART: S1, S2, no S3. No murmurs. No cyanosis or clubbing. No ascites. Pulses: Dorsalis pedis and posterior tibial pulses +1 to +2 bilaterally. ABDOMEN: Soft. Nontender. Bowel sounds active. No CVA tenderness. No mass felt. EXTREMITIES: No edema. Full range of motion of all extremities, equal. NEUROLOGIC: No focal deficit. Cranial nerves II through XII are grossly intact. No headache. No double vision. SKIN: Not dry. Intact. Turgor - normal. LYMPHATIC: No palpable lymph nodes/no lymphedema. MUSCULOSKELETAL: Normal joints with no swelling. Muscle tone is normal. ASSESSMENT: 1. CHF under control 2. Hypotension has resolved 3. Bradyarrhythmias resolved 4. Renal failure has resolved. The patient is in chronic kidney stage III/IV PLAN: 1. Continue the patient's medications 2. IV fluids for now 3. Possible discharge day after tomorrow. TIME SPENT: More than 30 minutes. Plan and coordination of the patient's care discussed in the presence of nurse. KIKO
[2022-01-29] MEDS: PEPCID PO SCH (20:10)
[2022-01-29] MEDS: NORVASC PO SCH (20:10)
[2022-01-30 05:17] LABS: BASOPHILS % (AUTO) 0.2 % (0.0-3.0); HEMATOCRIT 33.4 % (37.0-47.0); HEMOGLOBIN 10.6 g/dl (12.0-16.0); IMMATURE GRANULOCYTE # (AUTO) 0.3 (0.0-1.0); IMMATURE GRANULOCYTE % (AUTO) 2.4 % (0.0-5.0); LYMPHOCYTES # (AUTO) 0.8 K/uL (0.60-3.4); LYMPHOCYTES % (AUTO) 6.8 (10.0-50.0); MEAN CORPUSCULAR HEMOGLOBIN 25.4 pg (27.0-31.0); MEAN CORPUSCULAR HGB CONC 31.7 (31.8-35.4); MEAN CORPUSCULAR VOLUME 79.9 fl (81.0-99.0); MONOCYTES # (AUTO) 0.8 K/uL (0.4-2.0); MONOCYTES % (AUTO) 6.6 (0-10); NEUTROPHILS # (AUTO) 10.3 K/ul (2.0-6.9); PLATELET COUNT 274 10^3/uL (140-440); RDW COEFFICIENT OF VARIATION 15.7 % (11.6-14.8); RED BLOOD COUNT 4.18 10^6/ul (4.20-5.40); WHITE BLOOD COUNT 12.25 K/ul (4.6-10.2)
[2022-01-30 05:33] LABS: ALANINE AMINOTRANSFERASE 80.1 U/L (0-35); ALBUMIN 3.33 g/dL (3.5-5.0); ALKALINE PHOSPHATASE 98.7 U/L (53-141); ASPARTATE AMINO TRANSFERASE 20.5 U/L (14-36); BILIRUBIN,TOTAL 0.39 mg/dL (0.2-1.3); CALCIUM 8.93 mg/dL (8.4-10.2); CARBON DIOXIDE 30.6 mmol/L (22-30.0); CHLORIDE 96.3 mmol/L (98-107); CREATININE 1.63 mg/dL (0.60-1.30); GLUCOSE 218.7 mg/dL (74-106); POTASSIUM 4.17 mmol/L (3.5-5.1); SODIUM 133.3 mmol/L (134.5-145); TOTAL PROTEIN 6.01 g/dL (6.3-8.2)
[2022-01-30] MEDS: LASIX TAB PO SCH (05:38)
[2022-01-30 05:43] LABS: BLOOD UREA NITROGEN 63.6 mg/dL (7-17)
[2022-01-30] MEDS ORDERED: SODIUM CHLORIDE 1,000 ML IV ONE (08:38)
[2022-01-30] MEDS: XARELTO PO SCH (08:52)
[2022-01-30] MEDS: COREG PO SCH ×2 (08:52→17:29)
[2022-01-30] MEDS: MULTIVITAMIN TABLET PO SCH (08:53)
[2022-01-30] MEDS: CARDIZEM PO SCH ×2 (08:53→20:17)
[2022-01-30] MEDS: K-DUR PO SCH (08:53)
[2022-01-30] MEDS: PROTONIX IV IVP SCH (08:54)
[2022-01-30] MEDS: DECADRON IVP SCH (08:54)
[2022-01-30] MEDS: NON-FORMULARY MEDICATION (Cinnamon Bark [Cinnamon] 500 mg Capsule) PO SCH (08:55)
[2022-01-30] MEDS: NON-FORMULARY MEDICATION (Vit A-Vit C-Vit E-Zinc-Copper 7,160-113-100 unit-mg-unit Tablet) PO SCH (08:56)
--- NOTE | 2022-01-30 09:06 | PCM.PROG ---
Attending Provider: ATTENDING PROVIDER: Dr. FABIO OSUNA This patient is seen with Bouchra Wood, Nurse Practitioner. DATE OF SERVICE: 01/30/22 SUBJECTIVE: This 86 year old /WHITE F was hospitalized 01/20/22. Kidney function specifically BUN steadily increased. Been eating and drinking. REVIEW OF SYSTEMS: CONSTITUTIONAL: No night sweats. No fatigue, malaise, lethargy. No fever or chills. Weakness. HEENT: Eyes: No visual changes. No eye pain. No eye discharge. ENT: No runny nose. No epistaxis. No sinus pain. No odynophagia. No congestion. RESPIRATORY: No cough, no congestion. No hemoptysis. Shortness of breath, improved. CARDIOVASCULAR: No angina symptoms. No CHF symptoms. No atypical chest pain for CAD. No palpitations. No orthopnea. Heart rate 70-90. GASTROINTESTINAL: No abdominal pain. No nausea or vomiting. No diarrhea or constipation. No hematemesis. No hematochezia. GENITOURINARY: No urgency. No frequency. No dysuria. No hematuria. No obstructive symptoms. No discharge. No pain. No significant abnormal bleeding. MUSCULOSKELETAL: No musculoskeletal pain; no joint swelling. NEUROLOGICAL: Awake, alert, oriented to time, place and person. No headache. No neck pain. No syncope. No seizures. No dizziness. PSYCHIATRIC: Not anxious. No depression. No suicidal thoughts. No homicidal thoughts. SKIN: No rash. No lesions. No wounds. ENDOCRINE: No unexplained weight loss. No weight gain. HEMATOLOGIC/LYMPHATIC: No anemia. No purpura. No petechiae. No prolonged or excessive bleeding. No palpable lymph nodes. PHYSICAL EXAMINATION: GENERAL: The patient is awake, alert and oriented, sitting in chair in no distress. VITAL SIGNS: Temperature 97.7 F, Pulse 95, Respiratory Rate 16, BP 129/82, Pulse Ox 95% HEENT: Head normocephalic, atraumatic. Eyes: Extraocular muscles are intact. Pupils are equal, round and reactive to light and accommodation. Ears: No lesions. Nose appeared normal. Throat: No exudate or erythema. NECK: Supple. No JVD, no carotid bruit. No lymphadenopathy or thyromegaly. LUNGS: Clear to auscultation. Percussion note normal. Chest symmetrical. HEART: Irregular heart rate. S1, S2, no S3. No murmurs. No cyanosis or clubbing. No ascites. Pulses: Dorsalis pedis and posterior tibial pulses +1 to +2 both sides. ABDOMEN: Soft. Non-tender. Bowel sounds active. No CVA tenderness. No mass felt. EXTREMITIES: No edema. Full range of motion of all extremities, equal. NEUROLOGIC: No focal deficit. Cranial nerves II through XII are grossly intact. No headache. No double vision. SKIN: Not dry. Intact. Turgor-normal. LYMPHATIC: No palpable lymph nodes/no lymphedema. MUSCULOSKELETAL: Normal joints with no swelling. Muscle tone is normal. LAB REVIEW: 01/30/22 04:51 01/30/22 04:51 01/30/22 04:51: Sodium 133.3 L, Potassium 4.17, Chloride 96.3 L, Carbon Dioxide 30.6 H, Anion Gap 10.57, BUN 63.6 H*, Creatinine 1.63 H, Estimated GFR (MDRD) 30.00, BUN/Creatinine Ratio 39.01, Glucose 218.7 H, Calcium 8.93, Total Bilirubin 0.39, AST 20.5, ALT 80.1 H, Alkaline Phosphatase 98.7, Total Protein 6.01 L, Albumin 3.33 L, Globulin 2.68, Albumin/Globulin Ratio 1.24 01/30/22 04:51: WBC 12.25 H, RBC 4.18 L, Hgb 10.6 L, Hct 33.4 L, MCV 79.9 L, MCH 25.4 L, MCHC 31.7 L, RDW Coeff of Sera 15.7 H, Plt Count 274, Immature Gran % (Auto) 2.4, Neut % (Auto) 84.0 H, Lymph % (Auto) 6.8 L, Bulloch % (Auto) 6.6, Eos % (Auto) 0.0, Baso % (Auto) 0.2, Neut # (Auto) 10.3 H, Lymph # (Auto) 0.8, Bulloch # (Auto) 0.8, Eos # (Auto) 0.0, Baso # (Auto) 0.0, Immature Gran # (Auto) 0.3 ASSESSMENT: Please see below. 1. Renal Azotemia 2. Possible acute tubal necrosis 3. Atrial fibrillation/flutter 4. CHF 5. Generalized weakness. PLAN: 1. IV fluids normal saline at 50cc one bag 2. We are going to speak with the grandson regarding future plans. Plan and coordination of the patient's care discussed in the presence of Tractor Crane Operator and nurse. EDUCATION: CONDITION: SCRIBED BY: Melody MILESist scribed while in presence of service performed by Dr. Osuna/Bouchra Wood APRN on 01/30/22 ([id number])
--- NOTE | 2022-01-30 12:51 | PN ---
DATE OF SERVICE: 01/29/22 SUBJECTIVE: 86 year old white female hospitalized with CHF exacerbation. The patient after a few days of stay developed hypotension and went into acute renal failure. The patient's kidney functions are improving. The creatinine now 1.5, BUN 57. The patient is eating better. She wants to go home. The patient's oxygen at home is already set up. REVIEW OF SYSTEMS: CONSTITUTIONAL: No night sweats. No fatigue, malaise, lethargy. No fever or chills. HEENT: Eyes: No visual changes. No eye pain. No eye discharge. ENT: No runny nose. No epistaxis. No sinus pain. No sore throat. No odynophagia. No congestion. RESPIRATORY: No cough, no congestion. No hemoptysis. No shortness of breath. CARDIOVASCULAR: No angina symptoms. No CHF symptoms. No atypical chest pain for CAD. No palpitations. No PND. No orthopnea. GASTROINTESTINAL: No abdominal pain. No nausea or vomiting. No diarrhea or constipation. No hematemesis. No hematochezia. GENITOURINARY: No urgency. No frequency. No dysuria. No hematuria. No obstructive symptoms. No discharge. No pain. No significant abnormal bleeding. MUSCULOSKELETAL: No musculoskeletal pain; no joint swelling. NEUROLOGICAL: No headache. No neck pain. No syncope. No seizures. No dizziness. PSYCHIATRIC: Not anxious. No depression. No suicidal thoughts. No homicidal thoughts. SKIN: No rash. No lesions. No wounds. ENDOCRINE: No unexplained weight loss. No weight gain. HEMATOLOGIC/LYMPHATIC: No anemia. No purpura. No petechiae. No prolonged or excessive bleeding. No palpable lymph nodes. PHYSICAL EXAMINATION: VITAL SIGNS: Temperature 97.4, pulse 95, respiratory rate 18, blood pressure 114/64 and pulse ox 96%. HEENT: Head normocephalic, atraumatic. Eyes: Extraocular muscles are intact. Pupils are equal, round and reactive to light and accommodation. Ears: No lesions. Nose appeared normal. Throat: No exudate or erythema. NECK: Supple. No JVD, no carotid bruit. No lymphadenopathy or thyromegaly. LUNGS: Decreased breath sounds but clear to auscultation. Percussion note normal. Chest symmetrical. HEART: S1, S2, no S3. No murmurs. No cyanosis or clubbing. No ascites. Pulses: Dorsalis pedis and posterior tibial pulses +1 to +2 bilaterally. ABDOMEN: Soft. Nontender. Bowel sounds active. No CVA tenderness. No mass felt. EXTREMITIES: No edema. Full range of motion of all extremities, equal. NEUROLOGIC: No focal deficit. Cranial nerves II through XII are grossly intact. No headache. No double vision. SKIN: Not dry. Intact. Turgor - normal. LYMPHATIC: No palpable lymph nodes/no lymphedema. MUSCULOSKELETAL: Normal joints with no swelling. Muscle tone is normal. LABS: Hgb 10.6, hct 34, WBC 10,000 normal differential, creatinine 1.5, BUN 57, potassium 4.1 ASSESSMENT: 1. CHF under control 2. Hypotension, resolved 3. Bradyarrhythmia/Tachyarrhythmia under control 4. Renal failure seems to be resolving with improvement in Estimated GFR, 31cc per minute. PLAN: 1. The patient is on Cardizem 60mg twice a day and Coreg 6.25mg BID. Seems to be controlling the rate. CONDITION: Seems to be improving. OVERALL PROGNOSIS: Guarded. TIME SPENT: More than 30 minutes. Plan and coordination of the patient's care discussed in the presence of nurse. KIKO
--- NOTE | 2022-01-30 16:14 | RS.PTINEVL ---
Subjective - Patient information Date of Evaluation: 01/30/22 Date of Arrival on Unit: 01/20/22 Admitted From:: Home Diagnosis: Respiratory distress, severe HTN, pulmonary edema Usual Living Arrangement: Alone Home Environment: House, Stairs (few), Rail Medical History: Hypertension, Diabetes, CHF, Arthritis Medical History Comments:: chronic kidney disease, falls Surgical History: Cholecystectomy Surgical History Comments:: hernia repair Medications: see chart Subjective Information/ Patient Comments:: pt states she wants to go home but knows she can't right now. Grandson is supportive and concerned regarding home safety with new addition of home O2. - Level of function Prior to this admission, the patient could do the following:: Independent ADL's, Independent Ambulation Abilities prior to this admission: pt with history of falls at home. pt has rolling walker but grandson states she was not using it. Current Level of Function: Partially Dependent Current Equipment Used at Home: rolling walker, cane Interventions - Objective Patient Orientation: Person, Place, Time, Situation Current Interventions: IV's, Oxygen (2 liters), Telemetry Observation: pt with increased thoracic kyphosis, forward head, rounded shlds Range of Motion - ROM Right Upper Extremity AROM: WFL's Left Upper Extremity AROM: WFL's Right Lower Extremity AROM: WFL's Left Lower Extremity AROM: WFL's Muscle Strength - Muscle Strength Right Upper Extremity Strength: Mild Weakness (grossly 4-/5) Left Upper Extremity Strength: Mild Weakness (grossly 4-/5) Right Lower Extremity Strength: Mild Weakness (hip flex 4-/5, knee flex/ext 4/5, ankle DF/PF 4/5) Left Lower Extremity Strength: Mild Weakness (hip flex 4-/5, knee flex/ext 4/5, ankle DF/PF 4/5) Sensation - Sensation Right Upper Extremity Sensation: Intact/Normal Left Upper Extremity Sensation: Intact/Normal Right Lower Extremity Sensation: Intact/Normal Left Lower Extremity Sensation: Intact/Normal Palpation Palpation Findings: None/Normal Balance - Sitting Balance and Reactions Static Sitting Balance: Good (good-) Dynamic Sitting Balance: Fair (fair+) - Standing Balance and Reactions Static Standing Balance: Poor Dynamic Standing Balance: Poor Standing Equilibrium Reactions: Delayed Left, Delayed Right Standing Protective Reactions: Delayed Left, Delayed Right Functional Mobility - Bed Mobility Scooting: CGA Sit to Supine: Min Assist - Transfers Sit to Stand: CGA, Min Assist Stand to Sit: CGA, Min Assist - Safety Awareness Safety Awareness: Fair KARLA INDEX SCORE: n/a Ambulation - Ambulation Assistive Device Used: Rolling Walker Orthotic/Prosthetic Device: No Distance: 140ft Assistance needed with Ambulation: CGA, Min Assist, 1 person assist, 2 person assist Quality of Ambulation: pt amb with CGA to min x 1 + 1 for IV and O2. pt required verbal and tactile cues to improve posture, placement of rwx, step length. Gait Deviations: Forward posture, Short stride, Deviates from path Factors Affecting Ambulation: Decreased Balance, Breathing/O2 Saturation, Weakness, Decreased Safety, Limited Endurance Treatment time - Time with patient Length of Evaluation: 21 Total treatment time: 34 Patient Education - Education Patient Education: Activity Modification, Education of Plan of Care Teaching Recipient: Patient Teaching Methods: Discussion, Demonstration Assessment - Assessment Problem List:: Decreased level of function, Requires training/education, Decreased safety/Risk of falls, Weakness Rehab Potential: Good Further Therapy Indicated?: Yes Candidate for Swing Bed for Therapy Services?: Feel pt would be a candidate for swing bed for therex for strengthening, balance and gait training to improve functional mobility and decrease fall risk. Evaluation Complexity: HISTORY: Medium, EXAM OF BODY SYSTEMS: Medium, CLINICAL PRESENTATION: Medium, CLINICAL DECISION MAKING: Medium Patient's Goal(s): be able to return home and live alone Short Term Goals GOAL #1: Transfer sup to/from sit CGA Goal to be met by: 02/02/22 GOAL #2: Sit to/from stand CGA Goal to be met by: 02/02/22 GOAL #3: pt amb 150ft with rwx CGA with no LOB Goal to be met by: 02/02/22 GOAL #4: Improve BLE strength 4/5 Goal to be met by: 02/02/22 GOAL #5: Dyn sit balance good - Goal to be met by: 02/02/22 Halfway Goals GOAL #1: Transfer sup to/from sit to/from stand SBA to I Goal to be met by: 02/07/22 GOAL #2: pt amb functional household distances with rwx and O2 SBA no LOB Goal to be met by: 02/07/22 GOAL #3: Ascend/descend 3 steps with HR CGA Goal to be met by: 02/07/22 Plan Plan of Care: Therapeutic EX, Therapeutic Activity Other:: gait training Frequency of Treatment: 1-2 X day, as tolerated Duration of Treatment: 1 Week Anticipated Discharge Destination: transfer to swing bed Treatment Diagnosis (ICD 10 Codes): R 26.2 difficulty walking. R 26.81 balance impaired. R 29.6 falls. M62.81 muscle weakness Has the Physician been added for Co-signature?: Yes
[2022-01-30] MEDS: PEPCID PO SCH (20:17)
[2022-01-30] MEDS: NORVASC PO SCH (20:17)
[2022-01-31 05:25] LABS: BASOPHILS % (AUTO) 0.1 % (0.0-3.0); HEMATOCRIT 32.6 % (37.0-47.0); HEMOGLOBIN 10.3 g/dl (12.0-16.0); IMMATURE GRANULOCYTE # (AUTO) 0.3 (0.0-1.0); LYMPHOCYTES # (AUTO) 0.9 K/uL (0.60-3.4); LYMPHOCYTES % (AUTO) 5.9 (10.0-50.0); MEAN CORPUSCULAR HEMOGLOBIN 25.3 pg (27.0-31.0); MEAN CORPUSCULAR HGB CONC 31.6 (31.8-35.4); MEAN CORPUSCULAR VOLUME 80.1 fl (81.0-99.0); MONOCYTES % (AUTO) 6.5 (0-10); NEUTROPHILS # (AUTO) 13.5 K/ul (2.0-6.9); NEUTROPHILS % (AUTO) 85.5 % (42.2-75.2); PLATELET COUNT 283 10^3/uL (140-440); RDW COEFFICIENT OF VARIATION 15.9 % (11.6-14.8); RED BLOOD COUNT 4.07 10^6/ul (4.20-5.40)
[2022-01-31 05:37] LABS: ALANINE AMINOTRANSFERASE 67.3 U/L (0-35); ALBUMIN 3.35 g/dL (3.5-5.0); ALKALINE PHOSPHATASE 101.3 U/L (53-141); ASPARTATE AMINO TRANSFERASE 20.9 U/L (14-36); BILIRUBIN,TOTAL 0.4 mg/dL (0.2-1.3); CALCIUM 8.68 mg/dL (8.4-10.2); CARBON DIOXIDE 27.3 mmol/L (22-30.0); CHLORIDE 100.4 mmol/L (98-107); CREATININE 1.55 mg/dL (0.60-1.30); GLUCOSE 227.8 mg/dL (74-106); POTASSIUM 4.06 mmol/L (3.5-5.1); SODIUM 137.5 mmol/L (134.5-145); TOTAL PROTEIN 6.12 g/dL (6.3-8.2)
[2022-01-31 05:44] LABS: BLOOD UREA NITROGEN 64.2 mg/dL (7-17)
[2022-01-31] MEDS: LASIX TAB PO SCH (05:44)
[2022-01-31] MEDS: XARELTO PO SCH (09:29)
[2022-01-31] MEDS: COREG PO SCH ×2 (09:29→17:27)
[2022-01-31] MEDS: CARDIZEM PO SCH ×2 (09:29→21:01)
[2022-01-31] MEDS: MULTIVITAMIN TABLET PO SCH (09:29)
[2022-01-31] MEDS: K-DUR PO SCH (09:29)
[2022-01-31] MEDS: DECADRON IVP SCH (09:29)
[2022-01-31] MEDS: NON-FORMULARY MEDICATION (Vit A-Vit C-Vit E-Zinc-Copper 7,160-113-100 unit-mg-unit Tablet) PO SCH (09:30)
[2022-01-31] MEDS: NON-FORMULARY MEDICATION (Cinnamon Bark [Cinnamon] 500 mg Capsule) PO SCH (09:30)
[2022-01-31] MEDS: PROTONIX IV IVP SCH (09:30)
--- NOTE | 2022-01-31 10:59 | PN ---
DATE OF SERVICE: 01/28/22 SUBJECTIVE: The patient was seen and examined with the Nurse Practitioner. The patients condition has slowly improving. Kidney functions are abnormal but marked improvement from what it was to the episode of hypotension. CHF symptoms, Heart rate is acceptable. TIME SPENT: More than 30 minutes. Plan and coordination of the patient's care discussed in the presence of nurse. KIKO
--- NOTE | 2022-01-31 11:02 | PN ---
DATE OF SERVICE: 01/30/22 SUBJECTIVE: The patient was seen and examined with the Nurse Practitioner. The patient's condition has improving. BUN has gone up. Creatinine has decreased some. Appetite has remained the same. Heart rate is acceptable. IV fluid will be given 50cc per hour. CONDITION: Stable. TIME SPENT: More than 30 minutes. Plan and coordination of the patient's care discussed in the presence of nurse. KIKO
[2022-01-31] MEDS ORDERED: SODIUM CHLORIDE 1,000 ML IV SCH (11:30)
[2022-01-31] MEDS: NORVASC PO SCH (21:01)
[2022-01-31] MEDS: PEPCID PO SCH (21:02)
[2022-02-01 05:27] LABS: BASOPHILS % (AUTO) 0.2 % (0.0-3.0); HEMATOCRIT 33.1 % (37.0-47.0); HEMOGLOBIN 10.5 g/dl (12.0-16.0); IMMATURE GRANULOCYTE # (AUTO) 0.5 (0.0-1.0); IMMATURE GRANULOCYTE % (AUTO) 3.1 % (0.0-5.0); LYMPHOCYTES # (AUTO) 0.7 K/uL (0.60-3.4); LYMPHOCYTES % (AUTO) 4.4 (10.0-50.0); MEAN CORPUSCULAR HEMOGLOBIN 25.7 pg (27.0-31.0); MEAN CORPUSCULAR HGB CONC 31.7 (31.8-35.4); MEAN CORPUSCULAR VOLUME 80.9 fl (81.0-99.0); MONOCYTES % (AUTO) 6.2 (0-10); NEUTROPHILS # (AUTO) 14.3 K/ul (2.0-6.9); NEUTROPHILS % (AUTO) 86.1 % (42.2-75.2); PLATELET COUNT 290 10^3/uL (140-440); RDW COEFFICIENT OF VARIATION 16.2 % (11.6-14.8); RED BLOOD COUNT 4.09 10^6/ul (4.20-5.40); WHITE BLOOD COUNT 16.64 K/ul (4.6-10.2)
[2022-02-01] MEDS: LASIX TAB PO SCH (05:42)
[2022-02-01 05:46] LABS: ALANINE AMINOTRANSFERASE 57.2 U/L (0-35); ALBUMIN 3.39 g/dL (3.5-5.0); ASPARTATE AMINO TRANSFERASE 21.5 U/L (14-36); BILIRUBIN,TOTAL 0.48 mg/dL (0.2-1.3); CALCIUM 8.66 mg/dL (8.4-10.2); CARBON DIOXIDE 27.4 mmol/L (22-30.0); CHLORIDE 103.3 mmol/L (98-107); CREATININE 1.46 mg/dL (0.60-1.30); POTASSIUM 4.08 mmol/L (3.5-5.1); SODIUM 137.8 mmol/L (134.5-145); TOTAL PROTEIN 6.1 g/dL (6.3-8.2)
[2022-02-01] MEDS: K-DUR PO SCH (08:53)
[2022-02-01] MEDS: CARDIZEM PO SCH ×2 (08:53→20:35)
[2022-02-01] MEDS: XARELTO PO SCH (08:54)
[2022-02-01] MEDS: MULTIVITAMIN TABLET PO SCH (08:54)
[2022-02-01] MEDS: COREG PO SCH ×2 (08:54→17:31)
[2022-02-01] MEDS: NON-FORMULARY MEDICATION (Cinnamon Bark [Cinnamon] 500 mg Capsule) PO SCH (08:55)
[2022-02-01] MEDS: NON-FORMULARY MEDICATION (Vit A-Vit C-Vit E-Zinc-Copper 7,160-113-100 unit-mg-unit Tablet) PO SCH (08:56)
[2022-02-01] MEDS: DECADRON IVP SCH (09:10)
[2022-02-01] MEDS: PROTONIX IV IVP SCH (09:10)
[2022-02-01] MEDS: NORVASC PO SCH (20:34)
[2022-02-01] MEDS: PEPCID PO SCH (20:35)
[2022-02-02 05:25] LABS: BASOPHILS % (AUTO) 0.1 % (0.0-3.0); HEMATOCRIT 34.3 % (37.0-47.0); HEMOGLOBIN 10.8 g/dl (12.0-16.0); IMMATURE GRANULOCYTE # (AUTO) 0.4 (0.0-1.0); IMMATURE GRANULOCYTE % (AUTO) 1.9 % (0.0-5.0); LYMPHOCYTES # (AUTO) 0.7 K/uL (0.60-3.4); LYMPHOCYTES % (AUTO) 3.5 (10.0-50.0); MEAN CORPUSCULAR HEMOGLOBIN 25.5 pg (27.0-31.0); MEAN CORPUSCULAR HGB CONC 31.5 (31.8-35.4); MEAN CORPUSCULAR VOLUME 80.9 fl (81.0-99.0); MONOCYTES # (AUTO) 1.3 K/uL (0.4-2.0); MONOCYTES % (AUTO) 6.2 (0-10); NEUTROPHILS # (AUTO) 18.3 K/ul (2.0-6.9); NEUTROPHILS % (AUTO) 88.3 % (42.2-75.2); PLATELET COUNT 288 10^3/uL (140-440); RDW COEFFICIENT OF VARIATION 16.3 % (11.6-14.8); RED BLOOD COUNT 4.24 10^6/ul (4.20-5.40); WHITE BLOOD COUNT 20.69 K/ul (4.6-10.2)
[2022-02-02 05:38] LABS: ALANINE AMINOTRANSFERASE 54.4 U/L (0-35); ALBUMIN 3.53 g/dL (3.5-5.0); ALKALINE PHOSPHATASE 115.2 U/L (53-141); ASPARTATE AMINO TRANSFERASE 20.7 U/L (14-36); BILIRUBIN,TOTAL 0.47 mg/dL (0.2-1.3); CALCIUM 9.29 mg/dL (8.4-10.2); CARBON DIOXIDE 29.2 mmol/L (22-30.0); CHLORIDE 101.7 mmol/L (98-107); CREATININE 1.5 mg/dL (0.60-1.30); GLUCOSE 282.1 mg/dL (74-106); SODIUM 137.7 mmol/L (134.5-145); TOTAL PROTEIN 6.33 g/dL (6.3-8.2)
[2022-02-02 05:44] LABS: BLOOD UREA NITROGEN 64.6 mg/dL (7-17)
[2022-02-02] MEDS: LASIX TAB PO SCH (05:50)
[2022-02-02] MEDS: COREG PO SCH ×2 (08:51→16:31)
[2022-02-02] MEDS: CARDIZEM PO SCH ×2 (08:51→20:31)
[2022-02-02] MEDS: K-DUR PO SCH (08:51)
[2022-02-02] MEDS: XARELTO PO SCH (08:51)
[2022-02-02] MEDS: DECADRON IVP SCH (08:52)
[2022-02-02] MEDS: PROTONIX IV IVP SCH (08:52)
[2022-02-02] MEDS: MULTIVITAMIN TABLET PO SCH (08:53)
[2022-02-02] MEDS: NON-FORMULARY MEDICATION (Cinnamon Bark [Cinnamon] 500 mg Capsule) PO SCH (08:53)
[2022-02-02] MEDS: NON-FORMULARY MEDICATION (Vit A-Vit C-Vit E-Zinc-Copper 7,160-113-100 unit-mg-unit Tablet) PO SCH (08:53)
[2022-02-02] MEDS ORDERED: SODIUM CHLORIDE 1,000 ML IV SCH (12:30)
[2022-02-02] MEDS: PEPCID PO SCH (20:32)
[2022-02-02] MEDS: NORVASC PO SCH (20:32)
[2022-02-03 05:30] LABS: BASOPHILS % (AUTO) 0.2 % (0.0-3.0); HEMATOCRIT 35.1 % (37.0-47.0); HEMOGLOBIN 11.1 g/dl (12.0-16.0); IMMATURE GRANULOCYTE # (AUTO) 0.3 (0.0-1.0); IMMATURE GRANULOCYTE % (AUTO) 1.6 % (0.0-5.0); LYMPHOCYTES # (AUTO) 0.7 K/uL (0.60-3.4); LYMPHOCYTES % (AUTO) 3.8 (10.0-50.0); MEAN CORPUSCULAR HEMOGLOBIN 25.7 pg (27.0-31.0); MEAN CORPUSCULAR HGB CONC 31.6 (31.8-35.4); MEAN CORPUSCULAR VOLUME 81.3 fl (81.0-99.0); MONOCYTES # (AUTO) 0.9 K/uL (0.4-2.0); MONOCYTES % (AUTO) 4.6 (0-10); NEUTROPHILS # (AUTO) 16.8 K/ul (2.0-6.9); NEUTROPHILS % (AUTO) 89.8 % (42.2-75.2); PLATELET COUNT 269 10^3/uL (140-440); RDW COEFFICIENT OF VARIATION 16.7 % (11.6-14.8); RED BLOOD COUNT 4.32 10^6/ul (4.20-5.40); WHITE BLOOD COUNT 18.64 K/ul (4.6-10.2)
[2022-02-03 05:38] LABS: ALANINE AMINOTRANSFERASE 47.4 U/L (0-35); ALBUMIN 3.55 g/dL (3.5-5.0); ASPARTATE AMINO TRANSFERASE 22.6 U/L (14-36); BILIRUBIN,TOTAL 0.61 mg/dL (0.2-1.3); CALCIUM 9.12 mg/dL (8.4-10.2); CARBON DIOXIDE 29.5 mmol/L (22-30.0); CHLORIDE 103.3 mmol/L (98-107); CREATININE 1.51 mg/dL (0.60-1.30); GLUCOSE 225.7 mg/dL (74-106); POTASSIUM 4.74 mmol/L (3.5-5.1); SODIUM 139.2 mmol/L (134.5-145); TOTAL PROTEIN 6.38 g/dL (6.3-8.2)
[2022-02-03] MEDS: LASIX TAB PO SCH (05:47)
[2022-02-03 05:55] LABS: BLOOD UREA NITROGEN 61.7 mg/dL (7-17)
[2022-02-03] MEDS: XARELTO PO SCH (09:22)
[2022-02-03] MEDS: K-DUR PO SCH (09:23)
[2022-02-03] MEDS: CARDIZEM PO SCH ×2 (09:23→20:38)
[2022-02-03] MEDS: PREDNISONE PO SCH (09:23)
[2022-02-03] MEDS: PROTONIX PO SCH (09:23)
[2022-02-03] MEDS: COREG PO SCH ×2 (09:23→17:43)
[2022-02-03] MEDS ORDERED: SODIUM CHLORIDE 1,000 ML IV SCH (10:30)
--- NOTE | 2022-02-03 10:36 | PCM.PROG ---
Attending Provider: ATTENDING PROVIDER: Dr. FABIO OSUNA This patient is seen with Bouchra Wood, Nurse Practitioner. DATE OF SERVICE: 02/03/22 SUBJECTIVE: This 86 year old /WHITE F was hospitalized 01/20/22. BUN still significantly elevated. Heart rate running 100s. Not eating much. Has been rec eiving approximately 1 liter of fluids a day. REVIEW OF SYSTEMS: CONSTITUTIONAL: No night sweats. No fatigue, malaise, lethargy. No fever or chills. Weakness. HEENT: Eyes: No visual changes. No eye pain. No eye discharge. ENT: No runny nose. No epistaxis. No sinus pain. No odynophagia. No congestion. RESPIRATORY: No cough, no congestion. No hemoptysis. Shortness of breath. CARDIOVASCULAR: No angina symptoms. No CHF symptoms. No atypical chest pain for CAD. No palpitations. No orthopnea. Irregular heart rate. GASTROINTESTINAL: No abdominal pain. No nausea or vomiting. No diarrhea or constipation. No hematemesis. No hematochezia. GENITOURINARY: No urgency. No frequency. No dysuria. No hematuria. No obstructive symptoms. No discharge. No pain. No significant abnormal bleeding. MUSCULOSKELETAL: No musculoskeletal pain; no joint swelling. NEUROLOGICAL: Awake, alert, oriented to time, place and person. No headache. No neck pain. No syncope. No seizures. No dizziness. PSYCHIATRIC: Not anxious. No depression. No suicidal thoughts. No homicidal thoughts. SKIN: No rash. No lesions. No wounds. ENDOCRINE: No unexplained weight loss. No weight gain. HEMATOLOGIC/LYMPHATIC: No anemia. No purpura. No petechiae. No prolonged or excessive bleeding. No palpable lymph nodes. PHYSICAL EXAMINATION: GENERAL: The patient is awake, alert and oriented, sitting in bed in no distress. VITAL SIGNS: Temperature 97.6 F, Pulse 101, Respiratory Rate 18, BP 154/93, Pulse Ox 93% HEENT: Head normocephalic, atraumatic. Eyes: Extraocular muscles are intact. Pupils are equal, round and reactive to light and accommodation. Ears: No lesions. Nose appeared normal. Throat: No exudate or erythema. NECK: Supple. No JVD, no carotid bruit. No lymphadenopathy or thyromegaly. LUNGS: Severely diminished breath sounds with crepitations in left lower lobe. Clear to auscultation. Percussion note normal. Chest symmetrical. HEART: Irregular heart rate. S1, S2, no S3. No murmurs. No cyanosis or clubbing. No ascites. Pulses: Dorsalis pedis and posterior tibial pulses +1 to +2 both sides. ABDOMEN: Soft. Non-tender. Bowel sounds active. No CVA tenderness. No mass felt. EXTREMITIES: No edema. Full range of motion of all extremities, equal. NEUROLOGIC: No focal deficit. Cranial nerves II through XII are grossly intact. No headache. No double vision. SKIN: Not dry. Intact. Turgor-normal. LYMPHATIC: No palpable lymph nodes/no lymphedema. MUSCULOSKELETAL: Normal joints with no swelling. Muscle tone is normal. LAB REVIEW: 02/03/22 04:59 02/03/22 04:59 02/03/22 04:59: Sodium 139.2, Potassium 4.74, Chloride 103.3, Carbon Dioxide 29.5, Anion Gap 11.14, BUN 61.7 H*, Creatinine 1.51 H, Estimated GFR (MDRD) 33.00, BUN/Creatinine Ratio 40.86, Glucose 225.7 H D, Calcium 9.12, Total Bilirubin 0.61, AST 22.6, ALT 47.4 H, Alkaline Phosphatase 99.0, Total Protein 6.38, Albumin 3.55, Globulin 2.83, Albumin/Globulin Ratio 1.25 02/03/22 04:59: WBC 18.64 H, RBC 4.32, Hgb 11.1 L, Hct 35.1 L, MCV 81.3, MCH 25.7 L, MCHC 31.6 L, RDW Coeff of Sera 16.7 H, Plt Count 269, Immature Gran % (Auto) 1.6, Neut % (Auto) 89.8 H, Lymph % (Auto) 3.8 L, [place] % (Auto) 4.6, Eos % (Auto) 0.0, Baso % (Auto) 0.2, Neut # (Auto) 16.8 H, Lymph # (Auto) 0.7, [place] # (Auto) 0.9, Eos # (Auto) 0.0, Baso # (Auto) 0.0, Immature Gran # (Auto) 0.3 ASSESSMENT: Please see below. 1. Atrial fibrillation/flutter 2. Renal Azotemia 3. Hypertension 4. Acute respiratory failure 5. CHF PLAN: 1. Protonix 20mg PO in the morning 2. Pepcid 40mg at bedtime. 3. Stop multivitamin Plan and coordination of the patient's care discussed in the presence of Manager Electronic and nurse. SCRIBED BY: Melody MILESist scribed while in presence of service performed by Dr. Osuna/Bouchra Wood APRN on 02/03/22 ([id number])
[2022-02-03 10:45] LABS: POTASSIUM 4.43 mmol/L (3.5-5.1)
[2022-02-03] MEDS: SODIUM CHLORIDE 1,000 ML IV SCH (11:35)
[2022-02-03] MEDS: LANOXIN PO SCH (11:35)
--- NOTE | 2022-02-03 13:01 | PN ---
DATE OF SERVICE: 01/31/22 SUBJECTIVE: 86 year old white female hospitalized with CHF exacerbation. The patient's condition steadily seems to be improving now with kidney functions half way normal. CHF under control. She is going to be continued on 50cc drip for 1000cc and still staying up. Creatinine is slightly down but much better than originally, more than 3 creatinine which was noted after the patient's hypotensive episode a few days. She is ready for swing bed. Grandson present in the room. He is agreeable. REVIEW OF SYSTEMS: CONSTITUTIONAL: No night sweats. No fatigue, malaise, lethargy. No fever or chills. HEENT: Eyes: No visual changes. No eye pain. No eye discharge. ENT: No runny nose. No epistaxis. No sinus pain. No sore throat. No odynophagia. No congestion. RESPIRATORY: No cough, no congestion. No hemoptysis. Shortness of breath on exertion. CARDIOVASCULAR: No angina symptoms. No CHF symptoms. No atypical chest pain for CAD. No palpitations. No PND. No orthopnea. GASTROINTESTINAL: No abdominal pain. No nausea or vomiting. No diarrhea or constipation. No hematemesis. No hematochezia. GENITOURINARY: No urgency. No frequency. No dysuria. No hematuria. No obstructive symptoms. No discharge. No pain. No significant abnormal bleeding. MUSCULOSKELETAL: No musculoskeletal pain; no joint swelling. The patient is able to walk. NEUROLOGICAL: No headache. No neck pain. No syncope. No seizures. No dizziness. PSYCHIATRIC: Not anxious. No depression. No suicidal thoughts. No homicidal thoughts. SKIN: No rash. No lesions. No wounds. ENDOCRINE: No unexplained weight loss. No weight gain. HEMATOLOGIC/LYMPHATIC: No anemia. No purpura. No petechiae. No prolonged or excessive bleeding. No palpable lymph nodes. PHYSICAL EXAMINATION: VITAL SIGNS: Temperature 97.1, pulse 100, respiratory rate 16, blood pressure 129/70 and pulse ox 92%. HEENT: Head normocephalic, atraumatic. Eyes: Extraocular muscles are intact. Pupils are equal, round and reactive to light and accommodation. Ears: No lesions. Nose appeared normal. Throat: No exudate or erythema. NECK: Supple. No JVD, no carotid bruit. No lymphadenopathy or thyromegaly. LUNGS:Decreased breath sounds but clear to auscultation. Percussion note normal. Chest symmetrical. HEART: S1, S2, no S3. No murmurs. No cyanosis or clubbing. No ascites. Pulses: Dorsalis pedis and posterior tibial pulses +1 to +2 bilaterally. ABDOMEN: Soft. Nontender. Bowel sounds active. No CVA tenderness. No mass felt. EXTREMITIES: No edema. Full range of motion of all extremities, equal. NEUROLOGIC: No focal deficit. Cranial nerves II through XII are grossly intact. No headache. No double vision. SKIN: Not dry. Intact. Turgor - normal. LYMPHATIC: No palpable lymph nodes/no lymphedema. MUSCULOSKELETAL: Normal joints with no swelling. Muscle tone is normal. LABS: Hgb 10.3, hct 32, WBC 15,000 normal differential, creatinine 1.5, BUN 64, potassium 4 ASSESSMENT: 1. CHF under control 2. Hypotension, resolved 3. Atrial fibrillation with ventricular response somewhat rapid than I would like to see but no bradyarrhythmias. 4. Acute renal failure which happened after hypotensive episode has subsided. Now the patient has chronic kidney disease with BUN staying up to 64. PLAN: 1. Give slow hydration 2. Encourage the patient to eat 3. The patient should be up and about 4. 50cc per hour drip, 1000cc of total fluids to be given 5. Talked to the family about swing bed and she agreed. TIME SPENT: More than 30 minutes. Plan and coordination of the patient's care discussed in the presence of nurse. KIKO
--- NOTE | 2022-02-03 13:05 | PN ---
DATE OF SERVICE: 02/01/22 SUBJECTIVE: 86 year old white female hospitalized with CHf exacerbation the patient's went through hypotension and bradyarrhythmias. She has recovered. She went into renal failure which she has almost recovered. She is feeling better. She is going to be on swing bed for a while. REVIEW OF SYSTEMS: CONSTITUTIONAL: No night sweats. No fatigue, malaise, lethargy. No fever or chills. HEENT: Eyes: No visual changes. No eye pain. No eye discharge. ENT: No runny nose. No epistaxis. No sinus pain. No sore throat. No odynophagia. No congestion. RESPIRATORY: No cough, no congestion. No hemoptysis. No shortness of breath. CARDIOVASCULAR: No angina symptoms. No CHF symptoms. No atypical chest pain for CAD. No palpitations. No PND. No orthopnea. GASTROINTESTINAL: No abdominal pain. No nausea or vomiting. No diarrhea or constipation. No hematemesis. No hematochezia. Appetite has been getting better. GENITOURINARY: No urgency. No frequency. No dysuria. No hematuria. No obstructive symptoms. No discharge. No pain. No significant abnormal bleeding. MUSCULOSKELETAL: No musculoskeletal pain; no joint swelling. NEUROLOGICAL: No headache. No neck pain. No syncope. No seizures. No dizziness. PSYCHIATRIC: Not anxious. No depression. No suicidal thoughts. No homicidal thoughts. SKIN: No rash. No lesions. No wounds. ENDOCRINE: No unexplained weight loss. No weight gain. HEMATOLOGIC/LYMPHATIC: No anemia. No purpura. No petechiae. No prolonged or excessive bleeding. No palpable lymph nodes. PHYSICAL EXAMINATION: VITAL SIGNS: Temperature 98, pulse 100, respiratory rate 16, blood pressure 140/80 and pulse ox 95%. HEENT: Head normocephalic, atraumatic. Eyes: Extraocular muscles are intact. Pupils are equal, round and reactive to light and accommodation. Ears: No lesions. Nose appeared normal. Throat: No exudate or erythema. NECK: Supple. No JVD, no carotid bruit. No lymphadenopathy or thyromegaly. LUNGS: Decreased breath sounds but clear to auscultation. Percussion note normal. Chest symmetrical. HEART: S1, S2, no S3. No murmurs. No cyanosis or clubbing. No ascites. Pulses: Dorsalis pedis and posterior tibial pulses +1 to +2 bilaterally. ABDOMEN: Soft. Nontender. Bowel sounds active. No CVA tenderness. No mass felt. EXTREMITIES: No edema. Full range of motion of all extremities, equal. NEUROLOGIC: No focal deficit. Cranial nerves II through XII are grossly intact. No headache. No double vision. SKIN: Not dry. Intact. Turgor - normal. LYMPHATIC: No palpable lymph nodes/no lymphedema. MUSCULOSKELETAL: Normal joints with no swelling. Muscle tone is normal. LABS: Hgb 10, hct 33, WBC 16,000 normal differential, creatinine 1.4, BUN 59, potassium 4. ASSESSMENT: 1. CHF under control, stable. 2. Bradyarrhythmias controlled 3. Renal failure resolved, stable 4. Chronic anemia PLAN: 1. Put the patient in swing bed for PT/OT CONDITION: So far stable. TIME SPENT: More than 30 minutes. Plan and coordination of the patient's care discussed in the presence of nurse. KIKO
--- NOTE | 2022-02-03 13:11 | PN ---
DATE OF SERVICE: 02/02/22 SUBJECTIVE: 86 year old white female hospitalized with CHF exacerbation. The patient's condition improved within 24-48 hours. During the stay in the hospital the patient had hypotensive episode with bradyarrhythmias. She went into acute renal failure. Renal failure seems to have resolved now she is in chronic kidney disease status with elevated BUN. The patient's Hgb is steady. REVIEW OF SYSTEMS: CONSTITUTIONAL: No night sweats. No fatigue, malaise, lethargy. No fever or chills. HEENT: Eyes: No visual changes. No eye pain. No eye discharge. ENT: No runny nose. No epistaxis. No sinus pain. No sore throat. No odynophagia. No congestion. RESPIRATORY: No cough, no congestion. No hemoptysis. No shortness of breath. CARDIOVASCULAR: No angina symptoms. No CHF symptoms. No atypical chest pain for CAD. No palpitations. No PND. No orthopnea. GASTROINTESTINAL: No abdominal pain. No nausea or vomiting. No diarrhea or constipation. No hematemesis. No hematochezia. GENITOURINARY: No urgency. No frequency. No dysuria. No hematuria. No obstructive symptoms. No discharge. No pain. No significant abnormal bleeding. MUSCULOSKELETAL: No musculoskeletal pain; no joint swelling. NEUROLOGICAL: No headache. No neck pain. No syncope. No seizures. No dizziness. PSYCHIATRIC: Not anxious. No depression. No suicidal thoughts. No homicidal thoughts. SKIN: No rash. No lesions. No wounds. ENDOCRINE: No unexplained weight loss. No weight gain. HEMATOLOGIC/LYMPHATIC: No anemia. No purpura. No petechiae. No prolonged or excessive bleeding. No palpable lymph nodes. PHYSICAL EXAMINATION: VITAL SIGNS: Temperature 97.3, pulse 100, respiratory rate 18, blood pressure 150/80 and pulse ox 92% on 2 liters. HEENT: Head normocephalic, atraumatic. Eyes: Extraocular muscles are intact. Pupils are equal, round and reactive to light and accommodation. Ears: No lesions. Nose appeared normal. Throat: No exudate or erythema. NECK: Supple. No JVD, no carotid bruit. No lymphadenopathy or thyromegaly. LUNGS: Decreased breath sounds. Clear to auscultation. Percussion note normal. Chest symmetrical. HEART: S1, S2, no S3. No murmurs. No cyanosis or clubbing. No ascites. Pulses: Dorsalis pedis and posterior tibial pulses +1 to +2 bilaterally. ABDOMEN: Soft. Nontender. Bowel sounds active. No CVA tenderness. No mass felt. EXTREMITIES: No edema. Full range of motion of all extremities, equal. NEUROLOGIC: No focal deficit. Cranial nerves II through XII are grossly intact. No headache. No double vision. SKIN: Not dry. Intact. Turgor - normal. LYMPHATIC: No palpable lymph nodes/no lymphedema. MUSCULOSKELETAL: Normal joints with no swelling. Muscle tone is normal. LABS: Hgb 10.8, hct 34, WBC 20,000 normal differential, creatinine 1.5, BUN 64, potassium 4.2 ASSESSMENT: 1. CHF under control 2. Bradyarrhythmias resolved 3. Hypotension resolved 4. Renal failure, resolved. The patient is in chronic kidney disease stage III/IV PLAN: 1. Give fluids again today 1000cc at 50cc an hour 2. The patient is drinking well. 3. Cardiovascular status, stable. The patient's had echocardiogram done in October which showed normal LV contractility. TIME SPENT: More than 30 minutes. Plan and coordination of the patient's care discussed in the presence of nurse. KIKO
--- NOTE | 2022-02-03 14:11 | US ---
EXAM: Ultrasound renal Doppler. HISTORY: Decreased kidney function. COMPARISON: CT 01/20/2022. TECHNIQUE: Goldman-scale and color and spectral Doppler images. FINDINGS: Right kidney measures 8.1 cm in length. There is no hydronephrosis. Peak systolic velocity measurement in the right renal artery are 0.5 and 0.4 meters per second in the midportion and distal portion respectively. Right renal artery to aortic ratios measure 1.25 and 1. 0. Right renal resistive index measures 0.76. Left kidney measures 7.1 cm in length. There is no hydronephrosis. Peak systolic velocity measurements in the left renal artery are 0.7 and 0.5 meters per second in the midportion and distal portion respectively. Left renal artery to aortic ratios measure 1.7 and 1.25 . Left renal resistive index measures 0.8. Renal artery origins and the aorta are not well seen due to shadowing from bowel. Venous outflow is seen bilaterally. IMPRESSION: No evidence for hemodynamically significant stenosis in the right or left renal artery at the levels examined.
--- NOTE | 2022-02-03 14:32 | US ---
EXAM: Renal ultrasound HISTORY: Decreased kidney function COMPARISON: None TECHNIQUE: Renal ultrasound was performed FINDINGS: Right kidney measures 3.3 x 3.3 x 7.3 cm. Left kidney measures 3.9 x 3.4 x 8.2 cm. Renal cortical echogenicity is increased. Areas of bilateral renal cortical scarring likely related to re mote insult. No hydronephrosis or renal calculus large enough to cause acoustic shadowing. Anechoic cyst right superior kidney measures 0.9 cm and anechoic cyst left superior kidney measures 0.7 cm. Bladder grossly unremarkable. IMPRESSION: 1. No hydronephrosis. 2. Findings suggesting medical renal disease. Areas of bilateral renal cortical scarring likely rela luzmaria to remote insult.
[2022-02-03] MEDS: NORVASC PO SCH (20:38)
[2022-02-03] MEDS: PEPCID PO SCH (20:39)
[2022-02-04 05:22] LABS: HEMATOCRIT 33.6 % (37.0-47.0); HEMOGLOBIN 10.5 g/dl (12.0-16.0); MEAN CORPUSCULAR HEMOGLOBIN 25.9 pg (27.0-31.0); MEAN CORPUSCULAR HGB CONC 31.3 (31.8-35.4); PLATELET COUNT 279 10^3/uL (140-440); RDW COEFFICIENT OF VARIATION 16.9 % (11.6-14.8); RED BLOOD COUNT 4.05 10^6/ul (4.20-5.40); WHITE BLOOD COUNT 26.67 K/ul (4.6-10.2)
[2022-02-04 05:30] LABS: ANISOCYTOSIS NOT PRESENT (NOT PRESENT)
[2022-02-04 05:37] LABS: ALANINE AMINOTRANSFERASE 47.8 U/L (0-35); ALBUMIN 3.52 g/dL (3.5-5.0); ALKALINE PHOSPHATASE 104.1 U/L (53-141); ASPARTATE AMINO TRANSFERASE 29.1 U/L (14-36); BILIRUBIN,TOTAL 0.62 mg/dL (0.2-1.3); BLOOD UREA NITROGEN 56.7 mg/dL (7-17); CALCIUM 8.9 mg/dL (8.4-10.2); CARBON DIOXIDE 26.5 mmol/L (22-30.0); CHLORIDE 107.5 mmol/L (98-107); CREATININE 1.49 mg/dL (0.60-1.30); GLUCOSE 243.7 mg/dL (74-106); POTASSIUM 4.98 mmol/L (3.5-5.1); SODIUM 141.8 mmol/L (134.5-145); TOTAL PROTEIN 6.31 g/dL (6.3-8.2)
[2022-02-04] MEDS: PROTONIX PO SCH (05:46)
[2022-02-04] MEDS: LASIX TAB PO SCH (05:46)
[2022-02-04] MEDS ORDERED: LASIX IVP STA (08:04)
[2022-02-04] MEDS: SODIUM CHLORIDE 1,000 ML IV SCH (08:26)
[2022-02-04] MEDS: CARDIZEM PO SCH ×2 (08:27→20:58)
[2022-02-04] MEDS: COREG PO SCH ×2 (08:28→17:21)
[2022-02-04] MEDS: PREDNISONE PO SCH (08:28)
[2022-02-04] MEDS: XARELTO PO SCH (08:28)
[2022-02-04] MEDS: K-DUR PO SCH (08:29)
--- NOTE | 2022-02-04 08:43 | PCM.PROG ---
Attending Provider: ATTENDING PROVIDER: Dr. FABIO OSUNA This patient is seen with Bouchra Wood, Nurse Practitioner. DATE OF SERVICE: 02/04/22 SUBJECTIVE: This 86 year old /WHITE F was hospitalized 01/20/22. Shortness of breath this morning. Has been getting IV fluids. Started Digoxin for rate c ontrol. Renal function is better however some volume overload. Unable to tolerated by way of IV fluids. REVIEW OF SYSTEMS: CONSTITUTIONAL: No night sweats. No fatigue, malaise, lethargy. No fever or chills. Weakness. HEENT: Eyes: No visual changes. No eye pain. No eye discharge. ENT: No runny nose. No epistaxis. No sinus pain. No odynophagia. No congestion. RESPIRATORY: No cough, no congestion. No hemoptysis. Shortness of breath. CARDIOVASCULAR: No angina symptoms. No CHF symptoms. No atypical chest pain for CAD. No palpitations. No orthopnea.. GASTROINTESTINAL: No abdominal pain. No nausea or vomiting. No diarrhea or constipation. No hematemesis. No hematochezia. GENITOURINARY: No urgency. No frequency. No dysuria. No hematuria. No obstructive symptoms. No discharge. No pain. No significant abnormal bleeding. MUSCULOSKELETAL: No musculoskeletal pain; no joint swelling. NEUROLOGICAL: Awake, alert, oriented to time, place and person. No headache. No neck pain. No syncope. No seizures. No dizziness. PSYCHIATRIC: Not anxious. No depression. No suicidal thoughts. No homicidal thoughts. SKIN: No rash. No lesions. No wounds. ENDOCRINE: No unexplained weight loss. No weight gain. HEMATOLOGIC/LYMPHATIC: No anemia. No purpura. No petechiae. No prolonged or excessive bleeding. No palpable lymph nodes. PHYSICAL EXAMINATION: GENERAL: The patient is awake, alert and oriented, sitting in bed in no distress. VITAL SIGNS: Temperature 97.2 F, Pulse 93, Respiratory Rate 16, BP 152/71, Pulse Ox 90% HEENT: Head normocephalic, atraumatic. Eyes: Extraocular muscles are intact. Pupils are equal, round and reactive to light and accommodation. Ears: No lesions. Nose appeared normal. Throat: No exudate or erythema. NECK: Supple. No JVD, no carotid bruit. No lymphadenopathy or thyromegaly. LUNGS: Diminished breath sounds. Clear to auscultation. Percussion note normal. Chest symmetrical. HEART: S1, S2, no S3. No murmurs. irregular heart rate. No cyanosis or clubbing. No ascites. Pulses: Dorsalis pedis and posterior tibial pulses +1 to +2 both sides. ABDOMEN: Soft. Non-tender. Bowel sounds active. No CVA tenderness. No mass felt. EXTREMITIES: No edema. Full range of motion of all extremities, equal. NEUROLOGIC: No focal deficit. Cranial nerves II through XII are grossly intact. No headache. No double vision. SKIN: Not dry. Intact. Turgor-normal. LYMPHATIC: No palpable lymph nodes/no lymphedema. MUSCULOSKELETAL: Normal joints with no swelling. Muscle tone is normal. LAB REVIEW: 02/04/22 05:00 02/04/22 05:00 02/04/22 05:00: Sodium 141.8, Potassium 4.98, Chloride 107.5 H, Carbon Dioxide 26.5, Anion Gap 12.78, BUN 56.7 H, Creatinine 1.49 H, Estimated GFR (MDRD) 33.00, BUN/Creatinine Ratio 38.05, Glucose 243.7 H, Calcium 8.90, Total Bilirubin 0.62, AST 29.1, ALT 47.8 H, Alkaline Phosphatase 104.1, Total Protein 6.31, Albumin 3.52, Globulin 2.79, Albumin/Globulin Ratio 1.26 02/04/22 05:00: WBC 26.67 H D, RBC 4.05 L, Hgb 10.5 L, Hct 33.6 L, MCV 83.0, MCH 25.9 L, MCHC 31.3 L, RDW Coeff of Sera 16.9 H, Plt Count 279, Neutrophils % (Manual) 96.0 H, Lymphocytes % (Manual) 2.0 L, Monocytes % (Manual) 2.0, Anisocytosis Not present 02/02/22 05:12: Potassium 4.43, Anion Gap 11.23 ASSESSMENT: Please see below. 1. Atrial fibrillation 2. CHF 3. Acute renal failure 4. Acute respiratory failure PLAN: 1. Lasix 20mg IV now 2. Discontinue IV fluids 3. Had long discussion with the patient regarding prognosis. She is wanting to home discussed with her that this is not possible at this time. Discussed Hospice and the patient is not receptive. Will discuss with POA. Plan and coordination of the patient's care discussed in the presence of Cat Operator and nurse. SCRIBED BY: GENESIS SCOTT Director Of Learning scribed while in presence of service performed by Dr. Osuna/Bouchra Wood APRN on 02/04/22 ([id number])
[2022-02-04] MEDS: PEPCID PO SCH (20:57)
[2022-02-04] MEDS: NORVASC PO SCH (20:58)
[2022-02-05 05:20] LABS: HEMATOCRIT 36.2 % (37.0-47.0); MEAN CORPUSCULAR HEMOGLOBIN 25.2 pg (27.0-31.0); MEAN CORPUSCULAR HGB CONC 30.4 (31.8-35.4); PLATELET COUNT 247 10^3/uL (140-440); RDW COEFFICIENT OF VARIATION 16.6 % (11.6-14.8); RED BLOOD COUNT 4.36 10^6/ul (4.20-5.40); WHITE BLOOD COUNT 24.32 K/ul (4.6-10.2)
[2022-02-05 05:35] LABS: ALANINE AMINOTRANSFERASE 42.5 U/L (0-35); ALBUMIN 3.51 g/dL (3.5-5.0); ALKALINE PHOSPHATASE 98.4 U/L (53-141); ASPARTATE AMINO TRANSFERASE 18.8 U/L (14-36); BILIRUBIN,TOTAL 0.58 mg/dL (0.2-1.3); CALCIUM 8.97 mg/dL (8.4-10.2); CARBON DIOXIDE 27.3 mmol/L (22-30.0); CHLORIDE 107.7 mmol/L (98-107); CREATININE 1.59 mg/dL (0.60-1.30); GLUCOSE 212.7 mg/dL (74-106); POTASSIUM 4.04 mmol/L (3.5-5.1); SODIUM 142.4 mmol/L (134.5-145); TOTAL PROTEIN 6.39 g/dL (6.3-8.2)
[2022-02-05 05:37] LABS: ANISOCYTOSIS NOT PRESENT (NOT PRESENT)
[2022-02-05] MEDS: LASIX TAB PO SCH (06:05)
[2022-02-05] MEDS: PROTONIX PO SCH (06:06)
[2022-02-05 06:32] LABS: BLOOD UREA NITROGEN 61.9 mg/dL (7-17)
[2022-02-05] MEDS: K-DUR PO SCH (09:15)
[2022-02-05] MEDS: LANOXIN PO SCH (09:15)
[2022-02-05] MEDS: XARELTO PO SCH (09:16)
[2022-02-05] MEDS: CARDIZEM PO SCH ×2 (09:16→20:32)
[2022-02-05] MEDS: COREG PO SCH ×2 (09:16→17:06)
[2022-02-05] MEDS: PREDNISONE PO SCH (09:16)
[2022-02-05] MEDS: NYSTATIN ORAL SUSP PO SCH ×3 (13:04→20:32)
--- NOTE | 2022-02-05 14:16 | PN ---
DATE OF SERVICE: 02/03/22 SUBJECTIVE: 86 year old white female hospitalized with CHF exacerbation. The patient ultimately developed hypotension, renal failure from where she has recovered. The bradyarrhythmias are under control. Her main problem seems to be abnormal BUN with stable creatinine 1.5. IV fluids being given. The patient is tired and has given up. The patient was seen and examined with the Nurse Practitioner. TIME SPENT: More than 30 minutes. Plan and coordination of the patient's care discussed in the presence of nurse. KIKO
--- NOTE | 2022-02-05 14:20 | PN ---
DATE OF SERVICE: 02/04/22 SUBJECTIVE: 86 year old white female was seen and examined with the Nurse Practitioner. The patient's condition is not stable enough for her to be in the swing bed or discharged. Her kidney functions are more or less changed with little improvement then the patient seems to have fluid retention and will have to give diuretics. The patient's prognosis seems to be poor. Hospice discussed with the grandson. TIME SPENT: More than 30 minutes. Plan and coordination of the patient's care discussed in the presence of nurse. KIKO
[2022-02-05] MEDS: PEPCID PO SCH (20:32)
[2022-02-06 05:01] VITALS: BP 121/63; TEMP 97.7
[2022-02-06 05:26] LABS: BASOPHILS % (AUTO) 0.1 % (0.0-3.0); EOSINOPHILS % (AUTO) 0.2 % (0.0-7.0); HEMOGLOBIN 10.7 g/dl (12.0-16.0); IMMATURE GRANULOCYTE # (AUTO) 0.2 (0.0-1.0); IMMATURE GRANULOCYTE % (AUTO) 0.9 % (0.0-5.0); LYMPHOCYTES # (AUTO) 0.8 K/uL (0.60-3.4); LYMPHOCYTES % (AUTO) 2.9 (10.0-50.0); MEAN CORPUSCULAR HEMOGLOBIN 25.7 pg (27.0-31.0); MEAN CORPUSCULAR HGB CONC 30.6 (31.8-35.4); MEAN CORPUSCULAR VOLUME 84.1 fl (81.0-99.0); MONOCYTES # (AUTO) 1.1 K/uL (0.4-2.0); MONOCYTES % (AUTO) 4.2 (0-10); NEUTROPHILS # (AUTO) 23.6 K/ul (2.0-6.9); NEUTROPHILS % (AUTO) 91.7 % (42.2-75.2); PLATELET COUNT 242 10^3/uL (140-440); RDW COEFFICIENT OF VARIATION 16.7 % (11.6-14.8); RED BLOOD COUNT 4.16 10^6/ul (4.20-5.40); WHITE BLOOD COUNT 25.77 K/ul (4.6-10.2)
[2022-02-06 05:46] LABS: ALANINE AMINOTRANSFERASE 32.7 U/L (0-35); ALBUMIN 3.22 g/dL (3.5-5.0); ASPARTATE AMINO TRANSFERASE 22.4 U/L (14-36); BILIRUBIN,TOTAL 0.55 mg/dL (0.2-1.3); BLOOD UREA NITROGEN 58.9 mg/dL (7-17); CALCIUM 8.66 mg/dL (8.4-10.2); CARBON DIOXIDE 30.2 mmol/L (22-30.0); CHLORIDE 106.3 mmol/L (98-107); CREATININE 1.55 mg/dL (0.60-1.30); GLUCOSE 176.4 mg/dL (74-106); POTASSIUM 3.98 mmol/L (3.5-5.1); SODIUM 142.2 mmol/L (134.5-145); TOTAL PROTEIN 6.15 g/dL (6.3-8.2)
[2022-02-06] MEDS: NYSTATIN ORAL SUSP PO SCH ×2 (05:46→12:02)
[2022-02-06] MEDS: LASIX TAB PO SCH (05:46)
[2022-02-06] MEDS: PROTONIX PO SCH (05:46)
[2022-02-06] MEDS: PREDNISONE PO SCH (09:05)
[2022-02-06] MEDS: CARDIZEM PO SCH (09:05)
[2022-02-06] MEDS: COREG PO SCH (09:05)
[2022-02-06] MEDS: K-DUR PO SCH (09:05)
[2022-02-06] MEDS: XARELTO PO SCH (09:06)
--- NOTE | 2022-02-06 09:37 | PCM.PROG ---
Attending Provider: ATTENDING PROVIDER: Dr. FABIO OSUNA This patient is seen with Bouchra Wood, Nurse Practitioner. DATE OF SERVICE: 02/06/22 SUBJECTIVE: This 86 year old /WHITE F was hospitalized 01/20/22. The patient is up and alert this morning, still very weak and short of breath with exertion. Heart rate has improved, in 60-80. Renal function is stable. The patient is agreeable to go to [place]. SonBIN is also agreeable for [place]. We recommended Hospice while there, [place] would like to refer to Hospice. REVIEW OF SYSTEMS: CONSTITUTIONAL: No night sweats. No fatigue, malaise, lethargy. No fever or chills. Weakness. HEENT: Eyes: No visual changes. No eye pain. No eye discharge. ENT: No runny nose. No epistaxis. No sinus pain. No odynophagia. No congestion. RESPIRATORY: No cough, no congestion. No hemoptysis. Shortness of breath. CARDIOVASCULAR: No angina symptoms. No CHF symptoms. No atypical chest pain for CAD. No palpitations. No orthopnea.. GASTROINTESTINAL: No abdominal pain. No nausea or vomiting. No diarrhea or constipation. No hematemesis. No hematochezia. GENITOURINARY: No urgency. No frequency. No dysuria. No hematuria. No obst ructive symptoms. No discharge. No pain. No significant abnormal bleeding. MUSCULOSKELETAL: No musculoskeletal pain; no joint swelling. NEUROLOGICAL: Awake, alert, oriented to time, place and person. No headache. No neck pain. No syncope. No seizures. No dizziness. PSYCHIATRIC: Not anxious. No depression. No suicidal thoughts. No homicidal thoughts. SKIN: No rash. No lesions. No wounds. ENDOCRINE: No unexplained weight loss. No weight gain. HEMATOLOGIC/LYMPHATIC: No anemia. No purpura. No petechiae. No prolonged or excessive bleeding. No palpable lymph nodes. PHYSICAL EXAMINATION: GENERAL: The patient is awake, alert and oriented, sitting in bed in no distress. VITAL SIGNS: Temperature 97.7 F, Pulse 64, Respiratory Rate 16, BP 121/63, Pulse Ox 97% HEENT: Head normocephalic, atraumatic. Eyes: Extraocular muscles are intact. Pupils are equal, round and reactive to light and accommodation. Ears: No lesions. Nose appeared normal. Throat: No exudate or erythema. NECK: Supple. No JVD, no carotid bruit. No lymphadenopathy or thyromegaly. LUNGS: Diminished breath sounds. Clear to auscultation. Percussion note normal. Chest symmetrical. HEART: S1, S2, no S3. No murmurs. Irregular heart rate. No cyanosis or clubbing. No ascites. Pulses: Dorsalis pedis and posterior tibial pulses +1 to +2 both sides. ABDOMEN: Soft. Non-tender. Bowel sounds active. No CVA tenderness. No mass felt. EXTREMITIES: No edema. Full range of motion of all extremities, equal. NEUROLOGIC: No focal deficit. Cranial nerves II through XII are grossly intact. No headache. No double vision. SKIN: Not dry. Intact. Turgor-normal. LYMPHATIC: No palpable lymph nodes/no lymphedema. MUSCULOSKELETAL: Normal joints with no swelling. Muscle tone is normal. LAB REVIEW: 02/06/22 04:57 02/06/22 04:57 02/06/22 04:57: Sodium 142.2, Potassium 3.98, Chloride 106.3, Carbon Dioxide 30.2 H, Anion Gap 9.68, BUN 58.9 H, Creatinine 1.55 H, Estimated GFR (MDRD) 32.00, BUN/Creatinine Ratio 38.00, Glucose 176.4 H, Calcium 8.66, Total Bilirubin 0.55, AST 22.4, ALT 32.7, Alkaline Phosphatase 89.0, Total Protein 6.15 L, Albumin 3.22 L, Globulin 2.93, Albumin/Globulin Ratio 1.09 02/06/22 04:57: WBC 25.77 H, RBC 4.16 L, Hgb 10.7 L, Hct 35.0 L, MCV 84.1, MCH 25.7 L, MCHC 30.6 L, RDW Coeff of Sera 16.7 H, Plt Count 242, Immature Gran % (Au to) 0.9, Neut % (Auto) 91.7 H, Lymph % (Auto) 2.9 L, [place] % (Auto) 4.2, Eos % (Auto) 0.2, Baso % (Auto) 0.1, Neut # (Auto) 23.6 H, Lymph # (Auto) 0.8, [place] # (Auto) 1.1, Eos # (Auto) 0.0, Baso # (Auto) 0.0, Immature Gran # (Auto) 0.2 ASSESSMENT: Please see below. 1. Atrial fibrillation 2. CHF 3. Chronic kidney disease 4. Chronic respiratory failure 5. Generalized weakness 6. Failure to thrive PLAN: 1. Discharge to [place] 2. [place] is to refer to Hospice as soon as possible 3. Will continue medication as they stefany 4. Continue Oxygen Plan and coordination of the patient's care discussed in the presence of Database Analyst and nurse. SCRIBED BY: GENESIS SCOTT Precision Instrument Maker And Repairer scribed while in presence of service performed by Dr. Osuna/Boucrha Wood APRN on 02/06/22 ([id number])
--- NOTE | 2022-02-06 10:53 | DS ---
DATE OF SERVICE: 02/06/22 FINAL DIAGNOSIS: 1. Atrial fibrillation 2. CHF 3. Chronic kidney disease 4. Chronic respiratory failure 5. Generalized weakness 6. Failure to thrive DISCHARGE INSTRUCTIONS: Discharge to [place] on hospice. Continue all medications as per nursing reconciliation. MEDICATIONS AT DISCHARGE: Famotidine 20mg PO bedtime Cinnamon 500mg PO daily Multivitamin one tablet PO daily Vitamin [id number] E-zinc, tamika one tablet PO daily Diltazem 60mg PO Q 12 hours Furosemide 20mg PO QDAC Pantoprazole 40mg PO daily Xarelto 15mg pO daily NEW PRESCRIPTIONS: Nystatin 5ml PO ACHS K-tab 20meq PO daily Prednisone 5mg PO daily Digoxin 125mcg PO Q other day Coreg 6.25mg PO BID DISCONTINUED MEDICATIONS: Carvedilol Nitrostat Potassium chloride DIET INSTRUCTIONS: Cardiac ACTIVITY: As tolerated HOSPITAL COURSE: 86 year old white female who was admitted through the emergency room with atrial fibrillation with RVR. She has been hospitalized for over two weeks. Initially found to be in CHF once rate was controlled then became Bradycardia. She had unresponsive episode since then she has continued to decline. She has no more bradycardia. Renal function has increased likely due to ischemic insult, not tolerating IV fluids and continued to have CHF exacerbation. She is not eating much. We have adjusted Coreg, Cardizem and added Digoxin. 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 Initially she was put on IV Protonix now has transitioned to PO. At home she did not require any oxygen and at this point she is on three liters. She initially was a candidate for swing bed but due to lack of progress and overall poor prognosis family has decided to discharge to [place] with Hospice. I feel this is the best discussion given her age and advanced medical conditions. TIME SPENT: More than 60 minutes. KIKO
== END 2022-02-06 14:50 | DRG 308 ==
LOC: ED 07:52 → MEDSURG A 10:47
PROVIDERS: ADMIT Internal Medicine; ATTEND Internal Medicine
DX: Z51.81 Encounter for therapeutic drug level monitoring; R06.02 Shortness of breath; I50.9 Heart failure, unspecified; I48.91 Unspecified atrial fibrillation; Z91.81 History of falling; J96.00 Acute respiratory failure, unspecified whether with hypoxia or hypercapnia; M62.81 Muscle weakness (generalized); K44.9 Diaphragmatic hernia without obstruction or gangrene; N18.30 Chronic kidney disease, stage 3 unspecified; R11.2 Nausea with vomiting, unspecified; N20.0 Calculus of kidney; E78.5 Hyperlipidemia, unspecified; Z79.899 Other long term (current) drug therapy; Z79.01 Long term (current) use of anticoagulants; J81.0 Acute pulmonary edema; I10 Essential (primary) hypertension; Z99.81 Dependence on supplemental oxygen; R62.7 Adult failure to thrive; K21.9 Gastro-esophageal reflux disease without esophagitis; Z20.822 Contact with and (suspected) exposure to COVID-19